=== PATIENT | male | born 1935 | race Caucasian/White ===

== ENCOUNTER 2020-05-29 16:20 | Outpatient (CLI) | payer MEDICARE, SELFPAY ==
[2020-05-29 17:08] LABS: Basophils # 0.1 10^3/uL (0.0-0.1); Basophils % 1.3 %; Eosinophils # 0.4 10^3/uL (0.0-0.8); Eosinophils % 7.4 %; Hemoglobin 15.6 g/dL (11.7-16.6); Lymphocytes # 1.4 10^3/uL (0.8-4.8); Lymphocytes % 27.2 %; Mean Corpuscular HGB Conc 33.9 g/dL (30.0-36.0); Mean Corpuscular Volume 91.3 fL (80-94); Mean Platelet Volume 11.5 fL (7.4-10.4); Monocytes # 0.5 10^3/uL (0.2-0.9); Monocytes % 8.6 %; Neutrophils # 2.91 10^3/uL (1.8-7.7); Neutrophils % 55.3 %; Nucleated Red Blood Cells % 0 %; Platelet Count 180 10^3/cmm (130-400); Red Blood Count 5.04 10^6/uL (4.1-5.3); Red Cell Distribution Width 13.4 % (12.1-15.1); White Blood Count 5.3 10^3/uL (4.0-10.0)
== END 2020-05-29 16:21 | disposition home or self-care (01) ==
LOC: LAB 16:26
PROVIDERS: PCP Family Medicine; Visit Provider Internal Medicine Cardiovascular Disease
DX: Z45.010 Encounter for checking and testing of cardiac pacemaker pulse generator [battery] (principal)
CPT/HCPCS: 36415; 85025; 87635

== ENCOUNTER 2020-06-01 06:13 | Day surgery (SDC) | payer MEDICARE, SELFPAY ==
[2020-06-01 06:30] VITALS: BP 150/104; PULSE 95; RESP 18; TEMP 36.9; O2SAT 98
--- NOTE | 2020-06-01 07:13 | W.PM.OPSUD ---
Surgery/Procedure H&P Update DATE OF PROCEDURE: June 01, 2020 DATE H&P PERFORMED: 05/28/20 H&P UPDATE INFORMATION: I have reviewed H&P completed within last 30 days, I have examined patient prior to procedure and No changes to prior documentation PREOP DIAGNOSIS: Pacemaker ASTRID PRIMARY INDICATION FOR PROCEDURE: As mentioned above PLANNED PROCEDURE: Operation Date: 06/01/20 07:00 Proposed Procedures p Pacemaker Generator Change(Not Applicable) - Evy Gates MD PATIENT REASSESSED PRIOR TO SEDATION, WITH NO CHANGE NOTED: Yes PHYSICAL EXAM: alert, oriented x 3, clear to auscultation bilaterally and regular rate & rhythm OTHER PERTINENT EXAM FINDINGS: Heart sounds are normal. Lung is clear. AIRWAY EVAL/ANESTHESIA PLAN: normal airway, ASA II, Risks, benefits & alternatives of sedation and/or procedure discussed and Patient agrees to continue as planned
--- NOTE | 2020-06-01 08:30 | P.OP_ITS ---
Operative Report Date of procedure: June 01, 2020 Pre-op Diagnosis: Pacemaker ASTRID Procedure: PROCEDURE: PACEMAKER REVISION PREOPERATIVE DIAGNOSIS: Pacemaker elective replacement indication. POSTOPERATIVE DIAGNOSIS: Pacemaker elective replacement indication. ESTIMATED BLOOD LOSS: None COMPLICATIONS: None. 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 The patient was found to have elective replacement indication, during routine office followup evaluation. For further management of patient's condition for the symptomatic bradycardia, the patient required a pacemaker revision. Patient required a dual-chamber pacemaker for symptom relief and the need for AV synchrony The procedure was explained to the patient and his family in detail with the risks and benefits. The risks of bleeding, hematoma, vascular injury, infection and other concomitant complications were explained in detail, which the patient understood well and consented to proceed. PROCEDURES PERFORMED: 1. Explantation of the old pacemaker generator. 2. Implantation of the new generator. The patient brought to the Cardiac Bowl Attendant. The left side of the neck and the subclavian area were cleaned and draped in a sterile fashion. 1% Xylocaine was used for local anesthetic agent. A 2 inch long incision was made just below the previous pacemaker scar. By sharp and blunt dissection, the pacemaker pocket was accessed. The old generator was delivered from the pocket. The generator was detached from the lead. The new Medtronic generator was attached to the lead. The pacemaker pocket was copiously irrigated with vancomycin solution. Complete hemostasis was achieved. The lead was positioned behind the generator and the generator was attached to the pectoralis fascia by suturing with 0 Surgilon. Sponge counts were confirmed. The pacemaker pocket was closed in layers. Skin was approximated using 4-0 Vicryl. EXPLANTED DEVICE: Pacemaker Generator: Brand: [place]. Model number: [id number]. Serial number: [id number]. Date of implant: 12/10/2009 Make: [employer] Theo IMPLANTED DEVICES: Ventricular Lead: Date of implantation: 05/28/1994 Model number: [id number]/58 Serial number: [id number] Make: [employer] Theo. Atrial lead Date of implantation: 05/18/1994 Model number: [id number]/52 Serial number: [id number] Make: [employer] Theo Implanted Generator: Date of implantation : 06/01/2020 Brand:mGaadi. Model number: [id number] Serial number: [id number] Make: [employer] Theo Stimulation Threshold: The ventricular sensing was greater than 12 millivolts. Ventricular lead impedance was 700 ohms and the pacing threshold was 1.25 volts at 0.4 milliseconds. The atrial sensing was 1.1 millivolts. Atrial lead impedance was 450 ohms and the pacing threshold was 1.0 volts at 0.4 milliseconds. The pacemaker was set for DDDR mode with an upper rate of 130 and a lower rate of 60. Paced AV delay of 200 with a sensed AV delay of 180 +VIP 150 A pressure dressing was applied over the pacemaker site. The patient was transferred back to medical floor in stable condition. Sponge counts were correct.
[2020-06-01 12:29] VITALS: BP 137/82; PULSE 72; RESP 16; TEMP 36.5; O2SAT 99
[2020-06-01 16:22] VITALS: BP 127/74; PULSE 62; RESP 16; TEMP 36.6; O2SAT 96
[2020-06-01 19:22] VITALS: BP 135/71; PULSE 63; RESP 20; TEMP 37.1; O2SAT 95
[2020-06-01 23:21] VITALS: BP 139/80; PULSE 79; RESP 16; TEMP 37; O2SAT 97
[2020-06-02 03:56] VITALS: BP 132/68; PULSE 66; RESP 16; TEMP 37.1; O2SAT 95
--- NOTE | 2020-06-02 06:00 | ECG_ITS ---
Test Date: 2020-06-02 Pat Name: Brendan Thacker Department: Room: 111 Gender: Male Interventional Neuroradiologist: : 1935 Requested By: Evy Gates Order Number: [id number] Carloz MD: Evy Gates M.D. Measurements Intervals [place] Rate: 103 P: 267 MS: 212 QRS: -76 QRSD: 154 T: 77 QT: 393 QTc: 516 Interpretive Statements ELECTRONIC VENTRICULAR PACEMAKER ABNORMAL RHYTHM ECG No previous ECG available for comparison Electronically Signed On 06-02-2020 18:35:40 CDT by Evy Gates M.D. [id number]
[2020-06-02 07:25] VITALS: BP 139/81; PULSE 68; RESP 15; TEMP 36.6; O2SAT 97
[2020-06-02] MEDS: hydroCHLOROthiazide 25 mg Tablet PO (09:01)
[2020-06-02] MEDS: lisinopril 20 mg Tablet PO (09:01)
--- NOTE | 2020-06-02 10:20 | PC.NURSE ---
Pacemaker interrogation performed. Report called, pacemaker passed interrogation.
--- NOTE | 2020-06-02 11:02 | PM.PN ---
Subjective Subjective: Interval history: Patient was admitted to hospital following his pacemaker insertion for IV antibiotics. He was given IV vancomycin because of the allergy to Keflex. He has not had a reaction to the medication. He did have a hematoma bleeding from the pacemaker insertion site. His vitals remained stable. No fever, chills or cough. Since the patient is remained stable with no new symptoms, he is being discharged home today. Medications: Reviewed: Yes Medication Review Details: Current Medications Acetaminophen (Tylenol) 650 mg PO Q6H PRN PRN Reason: MILD PAIN Hydrochlorothiazide (Hctz) 25 mg PO DAILY [facility] Last Admin: 06/02/20 09:01 Dose: 25 mg Documented by: Sodium Chloride (Sodium Chloride 0.9%) 1,000 mls @ 75 mls/hr IV .[id number] [facility] Last Admin: 06/01/20 09:05 Dose: Not Given Documented by: Lisinopril (Prinivil) 20 mg PO DAILY [facility] Last Admin: 06/02/20 09:01 Dose: 20 mg Documented by: Non-Formulary Medication (Naproxen Sodium [Aleve]) 220 mg PO BID PRN PRN Reason: Pain Non-Formulary Medication (Pyridoxine (Vitamin B6)) 250 mg PO DAILY [facility] Last Admin: 06/02/20 09:02 Dose: Not Given Documented by: Vitals/I&O/Wt Last Vital Signs Temp 97.9 F 06/02/20 07:25 Pulse 68 06/02/20 07:25 Resp 15 06/02/20 07:25 BP 139/81 06/02/20 07:25 Pulse Ox 97 06/02/20 07:25 06/01/20 06/02/20 06/02/20 22:59 06:59 14:59 Intake Total 240 / 480 240 / 240 Output Total 460 / 460 Balance - 240 / 240 Weight last 48 hrs Weight 157 lb Physical Exam Narrative: EXAM NARRATIVE: GENERAL: The patient is alert and oriented times three. Not in any acute distress. HEENT: No significant pallor, icterus or lymphadenopathy.Oral cavity: There are no mucous membrane lesions. NECK: Trachea appears to be central. No masses noted. No JVD or thyromegaly appreciated. RESPIRATORY: Chest is symmetrical. No intercostals muscle retraction or any accessory muscle activation. There is no chest wall tenderness. Breath sounds are heard bilaterally. No rales or rhonchi heard. No evidence of any consolidation. Pacemaker site has no hematoma or bleeding. BREASTS: Deferred. HEART: The heart sounds are normal. No S3 or S4. No significant murmurs. No pericardial rub ABDOMEN: No vessel pulsations or distention. No tenderness. No organomegaly appreciated. Bowel sounds are normally heard. : Deferred. RECTAL: Deferred. LYMPHATIC: No lymphadenopathy noted in the neck or groin. EXTREMITIES: No edema or cyanosis. No clubbing. Peripheral pulses are palpated in fairly good volume and amplitude MUSCULOSKELETAL: No acute joint deformities or swelling SKIN: There are no significant rashes or ecchymosis NEUROPSYCHIATRIC: The patient is alert and oriented x3. Appears to be in a good mood. No tremors or rigidity noted. A&P Assessment and plan (1) Pacemaker at end of battery life: Patient had a pacemaker revision yesterday. He is doing okay with no specific symptoms. Pacemaker function appears to be appropriate. Status: Acute (2) Hypertension: Patient is currently normotensive. May continue on the current medications. Status: Acute Qualifiers: Hypertension type: essential hypertension Qualified Code(s): I10 - Essential (primary) hypertension (3) Hyperlipidemia: We will continue the current medications. 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 We will continue on the current medication. Status: Acute Attestations Medical Necessity Statement*: Patient is being discharged home today. Please see the discharge instructions. I will see him in the office as scheduled. Appointment at the heart care services next for a wound check and pacemaker check. 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
[2020-06-02 11:36] VITALS: BP 137/89; RESP 18
[2020-06-02 12:35] VITALS: BP 137/89; PULSE 82; RESP 18; TEMP 36.6; O2SAT 93
--- NOTE | 2020-06-02 12:54 | PC.NURSE ---
Discharge instructions given per the physician's orders. Patient verbalized understanding of the information and activity restrictions and did not have any further questions. IV has been removed. Patient dressed self. Patient daughter contacted for transportation home. Nurse to continue to monitor.
== END 2020-06-02 13:10 | disposition home or self-care (01) ==
LOC: CCL 06:18 → CSU 08:39
PROVIDERS: PCP Family Medicine; Visit Provider Internal Medicine Cardiovascular Disease
DX: Z45.018 Encounter for adjustment and management of other part of cardiac pacemaker (principal); I10 Essential (primary) hypertension; E78.2 Mixed hyperlipidemia; I45.6 Pre-excitation syndrome
CPT/HCPCS: 12345; 33213; 36415; 93005; 97165; C1769; C1785; J2250; J3010; J3370; J7030; J7050

== ENCOUNTER → 2020-07-05 13:58 | Outpatient (BNVA) | payer MEDICARE, SELFPAY | PROVIDERS: PCP Family Medicine; Referring Provider Dermatology; Visit Provider Podiatrist Foot & Ankle Surgery | DX: M19.072 Primary osteoarthritis, left ankle and foot (principal); M79.672 Pain in left foot | CPT/HCPCS: 73630 ==

== ENCOUNTER → 2021-02-14 08:33 | Outpatient (BNVA) | payer MEDICARE, SELFPAY | PROVIDERS: PCP Family Medicine; Visit Provider Internal Medicine Cardiovascular Disease | DX: Z01.818 Encounter for other preprocedural examination (principal); R07.89 Other chest pain; R60.9 Edema, unspecified; E78.2 Mixed hyperlipidemia; Z01.812 Encounter for preprocedural laboratory examination; Z20.822 Contact with and (suspected) exposure to COVID-19; Z45.010 Encounter for checking and testing of cardiac pacemaker pulse generator [battery] | CPT/HCPCS: 80048; 83880; 85025; 85610; 86850; 86900; 87635 ==

== ENCOUNTER → 2021-02-19 09:27 | Outpatient (BNVA) | payer MEDICARE, SELFPAY | PROVIDERS: PCP Family Medicine; Visit Provider Internal Medicine Cardiovascular Disease | DX: R60.9 Edema, unspecified (principal); R07.89 Other chest pain; I10 Essential (primary) hypertension | CPT/HCPCS: 80048; 83880 ==

== ENCOUNTER 2021-02-21 05:57 | Day surgery (SDC) | payer MEDICARE, SELFPAY ==
[2021-02-21] VITALS (7 sets, daily range): BP systolic 127–145; BP diastolic 63–98; PULSE 60–95; RESP 14–17; TEMP 36.3–36.9; O2SAT 95–97; BMI 20.7
[2021-02-21] MEDS: diphenhydrAMINE 50 mg Capsule PO (06:48)
--- NOTE | 2021-02-21 07:00 | XACV_ITS ---
Exam Room: [facility] Ht: 183 cm Wt: 69 kg BSA: 1.87 m2 Gender: Male : 1935 Any Known Allergies: Other Exam Priority: Routine Procedure(s): Procedure Description: Diagnostic procedure Procedure Description: PCI procedure Procedure Description: Left Heart Catheterization Procedure Description: Left ventriculography Procedure Description: Drug Eluting Coronary Stent Procedure Description: PTCA Diagnostic Cath Status: Elective Diagnostic Findings * Coronary angiography shows right dominance. * The left main is a medium caliber vessel with mild diffuse plaques. * The left anterior descending artery is a medium caliber vessel which appears to wrap around the LV apex minimally. The proximal to mid LAD was found to have moderate diffuse calcification. Proximal LAD was found to have around 40% tubular narrowing. Just before the second diagonal branch, the mid left anterior descending artery was found to have a tapering narrowing for 95%. The stenosis involves the ostium of the second diagonal branch. The distal LAD was found to have around 30 to 40% diffuse tubular narrowing in the mid segment. No other significant stenotic lesions were noted. * The left circumflex artery is a medium caliber diffusely ectatic vessel with mild diffuse coronary artery disease. No significant stenotic lesions were noted. * The right coronary artery is a medium caliber dominant vessel. The artery appears to be diffusely ectatic. Mild diffuse coronary calcification and intimal irregularities were noted. No significant stenotic lesions were seen. PCI Status: Urgent PCI Indication: NSTE - ACS Interventional Findings * Distal Left Anterior Descendin% stenosis treated with a AB TREK 2.50X12 RX BALLOON, MARK Eduardo LUCY 3.0X15 NYDIA, and MDRhett ALONZO EUPHORA RX 3.89S87CE BALLOON. 0% residual stenosis, DONNA: 3 flow. * 2nd Diagonal: 90% stenosis treated with a AB MINI TREK 2.00X8 RX BALLOON. 50% residual stenosis, DONNA: 3 flow. Conclusions 1. Mild left ventricular systolic dysfunction. Ejection fraction of 40%. 2. 85-year-old white male with history of hypertension, dyslipidemia, WPW syndrome and permanent pacer implantation, presenting with increasing episodes of chest pain. Cardiac catheterization revealed the following. 3. High-grade tapering narrowing of around 95% in the mid LAD involving the ostium of the second diagonal branch. Diffuse ectasia of the circumflex and right coronary artery. Mild diffuse disease in all the 3 arteries. Moderate diffuse calcification in the proximal to mid left anterior descending artery. Diminished LV ejection fraction of 40%. LVEDP of 16 mmHg. 4. I reviewed and discussed the cardiac catheterization findings with Dr. Nolan. It was thought to be appropriate to consider PCI of the LAD/diagonal lesion. Dr. Nolan concurred with this plan. He took over further management of this patient at this point. 5. Distal Left Anterior Descending was treated with a Balloon, Drug Eluting Stent, and Balloon. 6. 2nd Diagonal was treated with a Balloon. Recommendations * 1-Return to inpatient for close monitoring and routine cath care2-Risk factor modification for secondary prevention3-Statin and aspirin 81 mg life--long, if tolerated4-Patient was pre-loaded with 600 mg of Plavix, continue Plavix 75mg p.o. daily for at least one year. We will assess at the end of one year again to continue if further or not5-Continue optimal medical management * 6-Follow up with Dr. Arcelia Gates * in four weeks and your primary care in 10 days. Interventional RX Recommendation: PCI w/o planned CABG Diagnostic RX Recommendation: PCI w/o planned CABG Ventriculography Ejection Fraction: 40.0 % LV EDP: 16 mmHg Left Ventriculography Findings: * The LV gram was performed the RESENDIZ projection. The LV cavity appears to be upper limit of normal. There was diffuse hypokinesia of the anteroapical region. Overall LV ejection fraction was around 40%. There is no filling defects. No significant mitral valve prolapse or mitral regurgitation. Pressures Phase:Rest AO : 126 / 62 ( 90 ) @ 6:50:00 AM LV : 127 / -5 / 16 @ 6:49:00 AM 130 / -4 / 16 @ 6:49:00 AM 129 / 6 / 20 @ 6:49:00 AM 128 / 6 / 19 @ 6:49:00 AM 127 / 7 / 19 @ 6:50:00 AM Valves Phase:DefaultPhase AV : 0.0 @ 8:47:47 AM AV Mean Gradient: 0.0 @ 8:47:47 AM Clinical Evaluation EBL: 5mL-10mL Procedural Details Procedure Consent Obtained. Admit Source: Out Patient. Pre-Procedure Time Out. Identified patient by full name and date of as verbalized by the patient/guarantor. Does the consent match the physician's order: Yes. Accurate & Complete Informed Consent: Yes. Inpatient/Outpatient History & Physical on Chart: Yes. If H&P is completed, is and addenduem needed: N/A; If yes, is the addendum complete: N/A. Visualize and Verify Site with Patient/Guarantor: N/A. Relevant Radiology Images available: N/A. Pre-op teaching completed and patient verbalized understanding. The risks, benefits, and alternatives of sedation and/or procedure were discussed by physician. The patient agrees to continue. Procedure started. Correct patient, site and procedure confirmed by cath team. PERRLA. 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 Lungs clear x 5 lobes. [facility] Clinical Fraility Score: 4: Vulnerable. Complaint Supervisor Indications: Worsening Angina. Chest Pain Symptom Assessment: Atypical Angina. Cardiovascular Instability: No. IV Site on Arrival: 20 gauge in the left anticubital. Pre Procedural Pulses: bilateral dorsalis pedis was 3+. Pre Procedural Pulses: right posterior tibial was Doppled. Pre Procedural Pulses: left posterior tibial was 1+. Pre Procedural Pulses: bilateral radial was 3+. Oxygen started at 2liters/min via nasal canula. bilateral groins was prepped with chloroprep then draped in the usual sterile fashion. right radial was prepped with chloroprep then draped in the usual sterile fashion. Physician notified. Baseline sample Acquired. HR: 89 BPM. Physician arrived. Physician scrubbed in. Immediate Pre-Procedure Time Out. Correct Patient: Yes; Correct Procedure: Yes; Correct Site: Yes; Correct Patient Position: Yes; Correct Supplies: Yes; Dried Flammable Prep: Yes; Blood Products Available: N/A;. Lidocaine 1% infiltrated to the right radial. Arterial access obtained. A 5 t[place]anian Vasiliy catheter in over wire. Multiple views taken of left coronary artery. Dr. Nolan notified for possible intervention. Catheter redirected to the RCA. Catheter out. A 5 tanzanian JR4 catheter in over wire. Multiple views taken of right coronary artery. Catheter out. A 5 tanzanian Angled Pig catheter in over wire. LV gram performed in RESENDIZ @ 10 mL/second for a total of 30 mL. EDP Sample taken: LV 127/-6,16; HR: 69 BPM; SpO2: 96%. EDP Sample taken: LV 129/6,20; HR: 66 BPM; SpO2: 97%. Pullback taken: LV 127/7,19; AO 126/62(90); Mean: 0mmHg, Peak to Peak: 0mmHg, SEP: 7sec/min; HR: 71 BPM; SpO2: 97%. Catheter out. Dr. Nolan scrubbed in to perform intervention. patient daughter updated by Dr. Gates. 6 tanzanian XB 3.5 guide catheter was inserted over the wire. Runthrough guidewire was advanced through the guide catheter to lesion in the mid LAD. [place]prise guidewire was advanced through the guide catheter to lesion in the 2nd diaganol. cougar wire out. Inflation number : 1 A AB TREK 2.50X12 RX BALLOON was prepped and advanced across the Mid LAD , then inflated to 8 SANCHO for 0:11 seconds. Inflation number: 2 The AB TREK 2.50X12 RX BALLOON was reinflated across the Mid LAD, to 8 SANCHO for 0:10 seconds. Inflation number: 3 The AB TREK 2.50X12 RX BALLOON was reinflated across the Mid LAD, to 12 SANCHO for 0:14 seconds. Inflation number: 4 The AB TREK 2.50X12 RX BALLOON was reinflated across the Mid LAD, to 12 SANCHO for 0:09 seconds. Balloon out. Inflation Number : 5 A MARK Eduardo LUCY 3.0X15 NYDIA -Lot Number# [id number] exp date: 10-20-2022 was prepped and advanced across the Mid LAD. The stent was deployed at 14 SANCHO for 0:31 seconds. Stent balloon out over wire. Results checked. Wire out. Runthrough guidewire was advanced through the guide catheter to lesion in the mid LAD. Inflation number : 1 A AB MINI TREK 2.00X8 RX BALLOON was prepped and advanced across the 2nd Diag , then inflated to 8 SANCHO for 0:14 seconds. Inflation number: 2 The AB MINI TREK 2.00X8 RX BALLOON was reinflated across the 2nd Diag, to 8 SANCHO for 0:10 seconds. Inflation number: 3 The AB MINI TREK 2.00X8 RX BALLOON was reinflated across the 2nd Diag, to 8 SANCHO for 0:11 seconds. Inflation number: 4 The AB MINI TREK 2.00X8 RX BALLOON was reinflated across the 2nd Diag, to 8 SANCHO for 0:09 seconds. Balloon out. Inflation number : 6 A MDT NC EUPHORA RX 3.37R54SX BALLOON was prepped and advanced across the Mid LAD , then inflated to 14 SANCHO for 0:25 seconds. Inflation number: 7 The MDT NC EUPHORA RX 3.04J35GC BALLOON was reinflated across the Mid LAD, to 14 SANCHO for 0:15 seconds. Balloon out. Wire out. Results checked. TR band placed. Hemostasis obtained. Post Procedure: Pulses reassessed and unchanged. PERRLA. 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 No VTE prophylaxis required. A TR Band was successful obtaining hemostatsis at the Right Radial artery insertion site. ACT drawn. Results 255 seconds. Therapeutic limits - pre-heparin administration 90-150 seconds and monitoring heparin during a vascular procedure >250 seconds. Medication's Wasted: Lidocaine 1% = 18 mL. Medication's Wasted: Nitro = 49.8 mg. Medication's Wasted: Heparin = 2000 units. Medication's Wasted: Other = fentanyl 50 mg. Medication's Wasted: Other = versed 1 mg. Total IV fluids: 150 mL. Contrast type used: Omnipaque 300 mgI/mL, 500 mL bottle. Omnipaque 340mL. PCI Indication:new onset of angina. Post-op diagnosis: drug illuting stent to mid LAD, TRY OUT PERSON to D2. Complications: none. Estimated blood loss: 5mL-10mL. Procedure completed. Patient transferred by wheelchair to 1st floor. Vital chart was stopped. Access Site Site: Right Radial artery Sheath Size: 6 Fr Hemostasis Method: TR Band Hemostasis Success: Successful Procedure Medications Start: 7:14 AM Stop: 7:14 AM Medication: Versed Amount: 1 mg Route: I.V. Start: 7:14 AM Stop: 7:14 AM Medication: Fentanyl Amount: 25 mcg Route: I.V. Start: 7:20 AM Stop: 7:20 AM Medication: Versed Amount: 1 mg Route: I.V. Start: 7:28 AM Stop: 7:28 AM Medication: Verapamil Amount: 5 mg Route: I.A. Start: 7:28 AM Stop: 7:28 AM Medication: Nitrogylcerin Amount: 200 mcg Route: I.A. Start: 7:38 AM Stop: 7:38 AM Medication: Heparin Amount: 5000 units Route: I.V. Start: 7:58 AM Stop: 7:58 AM Medication: Fentanyl Amount: 25 mcg Route: I.V. Start: 8:06 AM Stop: 8:06 AM Medication: Versed Amount: 0.5 mg Route: I.V. Start: 8:12 AM Stop: 8:12 AM Medication: Heparin Amount: 4000 units Route: I.V. Start: 8:19 AM Stop: 8:19 AM Medication: Aggrastat 12.5 mg/250 mL Amount: 35 ml Route: I.V. bolus Start: 8:19 AM Stop: 8:19 AM Medication: Aggrastat 12.5 mg/250 mL Amount: 12.6 ml/hr Route: I.V. drip Start: 8:24 AM Stop: 8:24 AM Medication: Versed Amount: 0.5 mg Route: I.V. Start: 8:36 AM Stop: 8:36 AM Medication: Nitrogylcerin Amount: 200 mcg Route: I.A. Start: 8:46 AM Stop: 8:46 AM Medication: Plavix Amount: 600 mg Route: P.O. I, the attending physician, have reviewed and verified all procedure medications. Yes, all medications given per verbal order History/Risk Factors Hypertension: Yes Dyslipidemia: Yes Tobacco Use: Never Report Signatures Interventional Workflow Finalized by Marquez Nolan MD on 03/07/2021 03:05 PM Diagnostic Workflow Finalized by Dr Evy Gates MD [facility] on 02/21/2021 09:12 PM
--- NOTE | 2021-02-21 07:05 | PM.HP ---
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 Patient had a myocardial perfusion imaging 2018 which was unremarkable with no significant perfusion of normalities. Patient has been having chest pain off and on for a long time. Lately, he has been having increasing episodes of chest pains. In view of his ongoing worsening symptoms, in order to further evaluate his coronary status, a cardiac catheterization was recommended. Patient apparently refused to undergo a repeat stress test. He has no fever or chills. No cough. No other specific complaints. He had initial permanent pacer implantation in 1993. This was revised in May 2020. Review of Systems Narrative: CONSTITUTIONAL: No fever or chills. EYES: No blurring of vision or other visual disturbances lately. ENT: No hoarseness of voice, auditory disturbances or sore throat. CARDIOVASCULAR: As mentioned above. RESPIRATORY: No significant cough. GASTROINTESTINAL: No hematemesis or melena. GENITOURINARY: No dysuria or hematuria. INTEGUMENTARY: No skin rashes or history of skin cancer. NEURO: No transient ischemic attacks or amaurosis. PSYCHIATRIC: No history of psychosis or major depression. HEMATOLOGIC: No bleeding disorders or significant anemia. ENDOCRINE: No history of polyuria or polydipsia. MUSCULOSKELETAL: No recent joint pain or swelling. ALLERGY/IMMUNOLOGY: As mentioned above. Medications/Allergies Home Medications Medication Instructions Recorded Confirmed Last Taken Type lisinopril 20 1 tab PO DAILY 10/05/19 02/21/21 02/20/21 08:00 History mg-hydrochlorothiazide 25 mg tablet naproxen sodium 220 mg tablet 220 mg PO BID PRN 10/05/19 02/21/21 02/20/21 22:30 History pyridoxine (vitamin B6) 250 mg 250 mg PO DAILY 10/05/19 02/21/21 02/20/21 22:30 History tablet cetirizine 10 mg tablet 10 mg PO DAILY PRN 11/27/20 02/21/21 02/20/21 08:00 History famotidine 20 mg tablet 20 mg PO BID #4 tab 01/16/21 02/21/21 02/21/21 05:30 Rx prednisone 20 mg tablet 40 mg PO Q8H #6 tab 01/16/21 02/21/21 02/20/21 23:00 Rx furosemide 20 mg tablet 20 mg PO DAILY #90 tab 02/15/21 02/21/21 02/20/21 08:00 Rx potassium chloride 8 mEq 8 meq PO DAILY #90 tab 02/15/21 02/21/21 02/20/21 08:00 Rx tablet,extended release Allergies Allergy/AdvReac Type Severity Reaction Status Date / Time allopurinol Allergy Unknown Unknown Verified 11/27/20 08:25 barium sulfate Allergy Unknown Unknown Verified 11/27/20 08:25 beclomethasone Allergy Unknown Unknown Verified 11/27/20 08:25 [From Vancenase] cephalexin [From Keflex] Allergy Unknown unknown Verified 11/27/20 08:25 gatifloxacin [From Tequin] Allergy Unknown unknown Verified 11/27/20 08:25 quinidine Allergy Unknown unknown Verified 11/27/20 08:25 carvedilol AdvReac Mild tiredness Verified 11/27/20 08:25 / sleepiness dye 40 Allergy Unknown unknown Uncoded 11/27/20 08:25 PFSH Acute PFSH: Medical History Atypical chest pain Chronic low back pain Edema, peripheral Hyperlipidemia Hypertension 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) Surgical History H/O hernia repair H/O vasectomy Hx of cholecystectomy Family History Mother CAD (coronary artery disease) Father Cancer Lung disease Other Hypertension Denies family history of Diabetes Clotting disorder Dementia Chronic kidney disease (CKD) Suicide Anesthesia complication Bleeding disorder Stroke Social History Smoking and tobacco status: never smoked Alcohol intake: never Vitals/I&O/Wt Last Vital Signs Temp 98.4 F 02/21/21 06:14 Pulse 95 02/21/21 06:14 Resp 17 02/21/21 06:14 BP 145/98 02/21/21 06:14 Pulse Ox 95 02/21/21 06:14 Weight last 48 hrs Weight 153 lb Physical Exam Narrative: EXAM NARRATIVE: GENERAL: The patient is alert and oriented times three. Not in any acute distress. HEENT: No significant pallor, icterus or lymphadenopathy.Oral cavity: There are no mucous membrane lesions. NECK: Trachea appears to be central. No masses noted. No JVD or thyromegaly appreciated. RESPIRATORY: Chest is symmetrical. No intercostals muscle retraction or any accessory muscle activation. There is no chest wall tenderness. Breath sounds are heard bilaterally. No rales or rhonchi heard. No evidence of any consolidation. BREASTS: Deferred. HEART: The heart sounds are normal. No S3 or S4. Short systolic murmur the left sternal border. No diastolic murmurs. No pericardial rub ABDOMEN: No vessel pulsations or distention. No tenderness. No organomegaly appreciated. Bowel sounds are normally heard. : Deferred. RECTAL: Deferred. LYMPHATIC: No lymphadenopathy noted in the neck or groin. EXTREMITIES: No edema or cyanosis. No clubbing. Peripheral pulses are palpated in fairly good volume and amplitude MUSCULOSKELETAL: No acute joint deformities or swelling SKIN: There are no significant rashes or ecchymosis NEUROPSYCHIATRIC: The patient is alert and oriented x3. Appears to be in a good mood. No tremors or rigidity noted. Data Other Labs: The latest sodium was 140 with 28 creatinine 1.1. PT/INR were within normal limits. The CBC showed hemoglobin of 15.7 hematocrit of 45.7 platelet count of 444,000. WBC count of 4.6 thousand. A&P Assessment and plan (1) Atypical chest pain: In view of the patient's increasing episodes of chest pain, in order to further evaluate his coronary status, a cardiac catheterization would be appropriate. The risk of bleeding, hematoma, vascular injury, myocardial infarction, CVA, renal failure and other concomitant complications were explained in detail. Patient understood this well and consented to proceed. Status: Acute (2) Pacemaker: The patient has been compliant with the pacemaker follow-up evaluations. The pacemaker function is appropriate. Status: Acute (3) Hypertension: Currently the blood pressure is a stage II. We will try to optimize his antihypertensive medications Status: Acute Qualifiers: Hypertension type: essential hypertension Qualified Code(s): I10 - Essential (primary) hypertension (4) Hyperlipidemia: Status: Acute Qualifiers: Hyperlipidemia type: mixed hyperlipidemia Qualified Code(s): E78.2 - Mixed hyperlipidemia (5) WPW (Fifdn-Qmhumznlz-Hfynf syndrome): Currently the patient has no specific symptoms. We may continue on the current medications. Status: Acute Attestations Medical Necessity Statement*: The patient needs a PCI, may have to stay overnight. Otherwise he should be able to go home today. 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
--- NOTE | 2021-02-21 07:13 | W.PM.OPSUD ---
Surgery/Procedure H&P Update DATE OF PROCEDURE: February 21, 2021 DATE H&P PERFORMED: 02/21/21 H&P UPDATE INFORMATION: I have reviewed H&P completed within last 30 days, I have examined patient prior to procedure and H&P is in [facility] EMR on date indicated PREOP DIAGNOSIS: ASHD PRIMARY INDICATION FOR PROCEDURE: Increasing episodes of chest pain.. High blood pressure, dyslipidemia, permanent pacer implantation /WPW syndrome PLANNED PROCEDURE: Operation Date: 02/21/21 07:00 Proposed Procedures p left Cardiac Catheterization 10120 r07.89(Left) - Evy Gates MD PATIENT REASSESSED PRIOR TO SEDATION, WITH NO CHANGE NOTED: Yes PHYSICAL EXAM: alert, clear to auscultation bilaterally and regular rate & rhythm AIRWAY EVAL/ANESTHESIA PLAN: normal airway, see other exam findings, ASA III, Monitored Anesthesia, Local Anesthesia, Risks, benefits & alternatives of sedation and/or procedure discussed and Patient agrees to continue as planned
--- NOTE | 2021-02-21 09:30 | PC.NURSE ---
Dr. Nolan on unit. Asked to assess patient's TR band and right arm. Reported swelling about and below TR band. Dr. Nolan removed the 2 TR bands while maintaing manual pressure at site. One TR band reapplied with 15 ml air.
--- NOTE | 2021-02-21 15:51 | PC.NURSE ---
Air removed from TR band in increments of 3ml over the space of an hour without oozing. TR band removed. Site cleaned and 2x2 dressing and opsite applied. Bruising noted proximal and distal from puncture site but unchanged from when assessed by Dr. Nolan this morning.
[2021-02-21] MEDS: famotidine 20 mg Tablet PO (18:29)
[2021-02-21] MEDS: pyridoxine 50 mg Tablet 250 MG PO (20:16)
[2021-02-22 00:06] VITALS: BP 118/58; PULSE 60; RESP 12
[2021-02-22 04:17] VITALS: BP 138/70; PULSE 66; RESP 13; TEMP 36.7; O2SAT 96
[2021-02-22 05:11] LABS: Basophils % 0.5 %; Eosinophils # 0.1 10^3/uL (0.0-0.8); Eosinophils % 1.1 %; Hematocrit 40.1 % (42.0-52.0); Hemoglobin 13.8 g/dL (11.7-16.6); Lymphocytes # 1.2 10^3/uL (0.8-4.8); Lymphocytes % 14.6 %; Mean Corpuscular HGB Conc 34.4 g/dL (30.0-36.0); Mean Corpuscular Hemoglobin 31.7 pg (28.0-34.0); Mean Platelet Volume 11.7 fL (7.4-10.4); Monocytes # 0.6 10^3/uL (0.2-0.9); Monocytes % 7.3 %; Neutrophils # 5.97 10^3/uL (1.8-7.7); Nucleated Red Blood Cells % 0 %; Platelet Count 153 10^3/cmm (130-400); Red Blood Count 4.36 10^6/uL (4.1-5.3); Red Cell Distribution Width 12.4 % (12.1-15.1); White Blood Count 7.9 10^3/uL (4.0-10.0)
[2021-02-22 05:30] LABS: Anion Gap 12.4 (5-19); Blood Urea Nitrogen 37 mg/dL (8-23); Calcium 8.8 mg/dL (8.5-10.5); Carbon Dioxide 28 mmol/L (22-29); Chloride 103 mmol/L (98-107); Glucose 139 mg/dL (65-115); Osmolality Calculated 301 mOsm/kg (285-295); Potassium 3.4 mmol/L (3.5-5.1); Sodium 140 mmol/L (136-145)
[2021-02-22 06:00] VITALS: PULSE 61
--- NOTE | 2021-02-22 08:29 | PM.PN ---
Subjective Subjective: Interval history: The patient underwent a left heart catheterization yesterday followed by PCI of the LAD/first diagonal artery lesions. Since the intervention, patient has been doing okay. He had a small hematoma in the radial arterial insertion site which is currently resolved. Denies any chest pain or chest tightness. No unusual shortness of breath. No other specific complaints. Medications: Reviewed: Yes Medication Review Details: Current Medications Acetaminophen (Acetaminophen 325 Mg Tablet) 650 mg PO Q6H PRN PRN Reason: MILD PAIN Hydrocodone Bitart/Acetaminophen (Hydrocodone-Acetaminophen 5-325 Mg Tablet) 1 tab PO Q4H PRN PRN Reason: MODERATE TO SEVERE PAIN Al Hydrox/Mg Hydrox/Simethicone (Ayoe-Zxi-Lkdswtlwi-Tolu 30 Ml Udc) 30 ml PO Q15M PRN PRN Reason: INDIGESTION Atropine Sulfate (Atropine 1 Mg/Ml Sdv 1 Ml) 0.5 mg IVP PRN PRN PRN Reason: Symptomatic bradycardia Cetirizine HCl (Cetirizine 10 Mg Tablet) 10 mg PO DAILY PRN PRN Reason: Allergy Symptoms Famotidine (Famotidine 20 Mg Tablet) 20 mg PO BID COUNT INCLUDES THE [facility] Last Admin: 02/22/21 09:02 Dose: 20 mg Documented by: Fentanyl (Fentanyl 50 Mcg/Ml Inj 2ml) 50 mcg IVP PRN PRN PRN Reason: Prior to sheath removal Furosemide (Furosemide 20 Mg Tablet) 20 mg PO DAILY COUNT INCLUDES THE [facility] Last Admin: 02/22/21 09:02 Dose: 20 mg Documented by: Hydrochlorothiazide (Hydrochlorothiazide 25 Mg Tablet) 25 mg PO DAILY COUNT INCLUDES THE [facility] Last Admin: 02/22/21 09:02 Dose: 25 mg Documented by: Sodium Chloride (Sodium Chloride 0.9%) 1,000 mls @ 100 mls/hr IV .Q10H COUNT INCLUDES THE [facility] Last Admin: 02/22/21 04:47 Dose: Not Given Documented by: Tirofiban/Sodium Chloride (Aggrastat) 12.5 mg in 250 mls @ 12.5 mls/hr IV .Q20H COUNT INCLUDES THE [facility]; Protocol Last Admin: 02/22/21 04:47 Dose: Not Given Documented by: Lisinopril (Lisinopril 20 Mg Tablet) 20 mg PO DAILY COUNT INCLUDES THE [facility] Last Admin: 02/22/21 09:02 Dose: 20 mg Documented by: Magnesium Hydroxide (Magnesium Hydroxide 30 Ml Udc) 30 ml PO DAILY PRN PRN Reason: CONSTIPATION Naloxone HCl (Naloxone 0.4 Mg/Ml Sdv) 0.1 mg IVP Q2M PRN PRN Reason: RESPIRATORY RATE < 8/MIN Nitroglycerin (Nitroglycerin 0.4 Mg Sublingual Tablet) 0.4 mg SUBLINGUAL Q5M PRN PRN Reason: CHEST PAIN Non-Formulary Medication (Potassium Chloride) 8 meq PO DAILY MIKHAIL Last Admin: 02/21/21 11:13 Dose: Not Given Documented by: Pyridoxine HCl (Pyridoxine 50 Mg Tablet) 250 mg PO BEDTIME MIKHAIL Last Admin: 02/21/21 20:16 Dose: 250 mg Documented by: Temazepam (Temazepam 15 Mg Capsule) 15 mg PO BEDTIME PRN PRN Reason: INSOMNIA Vitals/I&O/Wt Last Vital Signs Temp 98.0 F 02/22/21 04:17 Pulse 61 02/22/21 06:00 Resp 13 02/22/21 04:17 BP 138/70 02/22/21 04:17 Pulse Ox 96 02/22/21 04:17 02/21/21 02/22/21 02/22/21 22:59 06:59 14:59 Intake Total 360 / 600 Output Total 275 / 275 Balance 360 / 600 -275 / 325 Weight last 48 hrs Weight 153 lb Physical Exam Narrative: EXAM NARRATIVE: GENERAL: The patient is alert and oriented times three. Not in any acute distress. HEENT: No significant pallor, icterus or lymphadenopathy.Oral cavity: There are no mucous membrane lesions. NECK: Trachea appears to be central. No masses noted. No JVD or thyromegaly appreciated. RESPIRATORY: Chest is symmetrical. No intercostals muscle retraction or any accessory muscle activation. There is no chest wall tenderness. Breath sounds are heard bilaterally. No rales or rhonchi heard. No evidence of any consolidation. BREASTS: Deferred. HEART: The heart sounds are normal. No S3 or S4. Short systolic murmur the left sternal border. No diastolic murmurs. No pericardial rub ABDOMEN: No vessel pulsations or distention. No tenderness. No organomegaly appreciated. Bowel sounds are normally heard. : Deferred. RECTAL: Deferred. LYMPHATIC: No lymphadenopathy noted in the neck or groin. EXTREMITIES: No edema or cyanosis. No clubbing. Ecchymosis around the radial artery insertion site. No hematoma. Good distal pulses. MUSCULOSKELETAL: No acute joint deformities or swelling SKIN: There are no significant rashes or ecchymosis NEUROPSYCHIATRIC: The patient is alert and oriented x3. Appears to be in a good mood. No tremors or rigidity noted. Data : 02/22/21 04:19 02/22/21 04:19 Other Labs: Laboratory Last Values WBC 7.9 10^3/uL (4.0-10.0) 02/22/21 04:19 RBC 4.36 10^6/uL (4.1-5.3) 02/22/21 04:19 Hgb 13.8 g/dL (11.7-16.6) 02/22/21 04:19 Hct 40.1 % (42.0-52.0) L 02/22/21 04:19 MCV 92.0 fL (80-94) 02/22/21 04:19 MCH 31.7 pg (28.0-34.0) 02/22/21 04:19 MCHC 34.4 g/dL (30.0-36.0) 02/22/21 04:19 RDW 12.4 % (12.1-15.1) 02/22/21 04:19 Plt Count 153 10^3/cmm (130-400) 02/22/21 04:19 MPV 11.7 fL (7.4-10.4) H 02/22/21 04:19 Neut % (Auto) 76.0 % 02/22/21 04:19 Lymph % (Auto) 14.6 % 02/22/21 04:19 Edmunds % (Auto) 7.3 % 02/22/21 04:19 Eos % (Auto) 1.1 % 02/22/21 04:19 Baso % (Auto) 0.5 % 02/22/21 04:19 Neut # (Auto) 5.97 10^3/uL (1.8-7.7) 02/22/21 04:19 Lymph # (Auto) 1.2 10^3/uL (0.8-4.8) 02/22/21 04:19 Edmunds # (Auto) 0.6 10^3/uL (0.2-0.9) 02/22/21 04:19 Eos # (Auto) 0.1 10^3/uL (0.0-0.8) 02/22/21 04:19 Baso # (Auto) 0.0 10^3/uL (0.0-0.1) 02/22/21 04:19 Nucleated RBC % (auto) 0 % 02/22/21 04:19 Nucleated RBCs # 0.0 /100WBC 02/22/21 04:19 Sodium 140 mmol/L (136-145) 02/22/21 04:19 Potassium 3.4 mmol/L (3.5-5.1) L 02/22/21 04:19 Chloride 103 mmol/L (98-107) 02/22/21 04:19 Carbon Dioxide 28 mmol/L (22-29) 02/22/21 04:19 Anion Gap 12.4 (5-19) 02/22/21 04:19 BUN 37 mg/dL (8-23) H 02/22/21 04:19 Creatinine 1.0 mg/dL (0.7-1.2) 02/22/21 04:19 GFR Calculation Not Reportable 02/22/21 04:19 Glucose 139 mg/dL (65-115) H 02/22/21 04:19 Calculated Osmolality 301 mOsm/kg (285-295) H 02/22/21 04:19 Calcium 8.8 mg/dL (8.5-10.5) 02/22/21 04:19 A&P Assessment and plan (1) Atherosclerosis of coronary artery of [place] heart without angina pectoris: Patient status post cardiac catheterization, revealing high-grade lesion in the mid LAD involving the ostium of the second diagonal branch. He underwent PCI of the LAD/diagonal lesion. The other arteries were found to have mild diffuse disease. The right coronary artery and circumflex artery were found to have diffuse ectasia. No significant other stenotic lesions. Patient is currently stable. Importance of compliance with diet, medication and exercise were discussed. If he continues to remain stable, may be discharged home today. Status: Acute Qualifiers: Coronary Disease-Associated Artery/Lesion type: [place] artery Qualified Code(s): I25.10 - Atherosclerotic heart disease of [place] coronary artery without angina pectoris (2) Pacemaker: The patient has been compliant with the pacemaker follow-up evaluations. The pacemaker function is appropriate. Status: Acute (3) Hypertension: For better control of the blood pressure as well as for the LV systolic dysfunction, I may start the patient on losartan 50 mg p.o. daily and discontinue the lisinopril/HCTZ. Patient may continue with the Lasix. Status: Acute Qualifiers: Hypertension type: essential hypertension Qualified Code(s): I10 - Essential (primary) hypertension (4) Hyperlipidemia: Patient apparently is not on any statin drugs. I may start him on Lipitor 40 mg p.o. now 1 daily. Will do a lipid profile on the blood in the lab. Status: Acute Qualifiers: Hyperlipidemia type: mixed hyperlipidemia Qualified Code(s): E78.2 - Mixed hyperlipidemia (5) WPW (Kfxyy-Airvsosbp-Ckzzu syndrome): Currently the patient has no specific symptoms. We may continue on the current medications. Status: Acute Additional A&P Information If the patient continues to remain stable, will be discharged home today. 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
[2021-02-22] MEDS: potassium chloride ER 20 mEq Tablet PO (09:01)
[2021-02-22] MEDS: famotidine 20 mg Tablet PO (09:02)
[2021-02-22] MEDS: lisinopril 20 mg Tablet PO (09:02)
[2021-02-22] MEDS: FUROsemide 20 mg Tablet PO (09:02)
[2021-02-22] MEDS: hydroCHLOROthiazide 25 mg Tablet PO (09:02)
[2021-02-22 09:17] VITALS: BP 166/88; PULSE 76; RESP 18; TEMP 36.2; O2SAT 93
--- NOTE | 2021-02-22 09:54 | PC.NURSE ---
Call placed to Dr. Gates regarding new orders. Reported that patient was given lisinopril and HCTZ prior to discontinuation of the medicines. Dr. Gates stated not to give cozaar this morning and asked me to verify that patient has no allergies to statins prior to giving lipitor.
[2021-02-22] MEDS: clopidogrel 75 mg Tablet PO (10:14)
[2021-02-22] MEDS: atorvastatin 40 mg Tablet PO (10:14)
[2021-02-22 10:18] VITALS: BP 166/88; PULSE 76; RESP 18; TEMP 36.2; O2SAT 93
[2021-02-22 10:42] LABS: Chol HDL Ratio 4.77 mg/dL (1.0-5.00); Cholesterol 186 mg/dL (0-200); HDL Cholesterol 39 mg/dL (60-100); LDL Cholesterol Calculated 129 mg/dL (50-129); LDL HDL Ratio 3.31 RATIO (0.00-3.22); Triglycerides 90 mg/dL (0-150)
--- NOTE | 2021-02-22 11:30 | PC.NURSE ---
Patient provided with verbal and written education/ instructions on plavix, lifting restrictions, post procedure cautions and care of puncture site. Patient discharged home with daughter.
== END 2021-02-22 11:30 | disposition home or self-care (01) ==
LOC: CCL 06:02 → CSU 08:48
PROVIDERS: Internal Medicine Cardiovascular Disease; PCP Family Medicine; Visit Provider Internal Medicine Cardiovascular Disease
DX: I25.10 Atherosclerotic heart disease of native coronary artery without angina pectoris (principal); R07.89 Other chest pain; Z95.0 Presence of cardiac pacemaker; I10 Essential (primary) hypertension; E78.2 Mixed hyperlipidemia; I45.6 Pre-excitation syndrome
CPT/HCPCS: 36415; 80048; 80061; 85025; 85347; 92920; 93452; C1725; C1769; C1874; C1887; C1894; C9600; J1644; J2250; J3010; J3246; J3490; J7030; Q0163; Q9967

== ENCOUNTER → 2021-02-28 12:29 | Outpatient (BNVA) | payer MEDICARE, SELFPAY | PROVIDERS: PCP Family Medicine; Visit Provider Nurse Practitioner Family | DX: I25.10 Atherosclerotic heart disease of native coronary artery without angina pectoris (principal); I10 Essential (primary) hypertension; E78.5 Hyperlipidemia, unspecified | CPT/HCPCS: 80048 ==

== ENCOUNTER → 2021-06-25 10:06 | Outpatient (BNVA) | payer MEDICARE, SELFPAY | PROVIDERS: PCP Family Medicine; Visit Provider Physician Assistant | DX: M54.50 Low back pain, unspecified (principal); M43.16 Spondylolisthesis, lumbar region; M51.37 Other intervertebral disc degeneration, lumbosacral region | CPT/HCPCS: 72110 ==

== ENCOUNTER 2021-07-30 02:51 | Emergency (ER) | payer MEDICARE, SELFPAY ==
[2021-07-30 02:59] VITALS: BP 171/75; PULSE 75; RESP 18; TEMP 36.6; O2SAT 100; BMI 22.4
--- NOTE | 2021-07-30 03:11 | ED_ITS ---
HPI - Abdominal Pain General: Chief Complaint: Abdominal Pain Stated Complaint: Pain in back, Nausea Time Seen by Provider: 07/30/21 02:53 Source: patient Mode of arrival: ambulatory Limitations: no limitations History of Present Illness: HPI narrative: 85-year-old male who has a history of chronic back pain he states he has been going to therapy for his back pain is actually improved. States that he woke tonight a couple hours ago with a sharp pain in his left flank. He states it seems to be episodic denies any worsening or improving factors. He states the pain at its worst was a 9 out of 10 denies any abdominal pain but states that seem to be more in his flank and not his back. He states that his pain right now is improved but he will get increased pain at times. States pain is currently 1 out of 10 denies any vomiting diarrhea or difficulty urinating. Associated Symptoms: Denies chills, diarrhea, fever(s), nausea and vomiting Review of Systems Const: Denies: fever(s), chills, body aches or change in appetite Eyes: Denies: blurry vision or eye discomfort ENMT: Denies: throat pain or dental pain Card: Denies: chest pain Resp: Denies: dyspnea GI: Denies: abdominal pain, nausea, vomiting or diarrhea : Reports: flank pain Musc: Reports: back pain Skin/Breast: Denies: rash Neuro: Denies: headache(s) Psych: Denies: depression Paolo/Lymph: Denies: easy bruising All/Imm: Denies: urticaria PFSH ED PFSH: Medical History Atypical chest pain Chronic low back pain Edema, peripheral Hyperlipidemia Hypertension 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) Surgical History H/O hernia repair H/O vasectomy Hx of cholecystectomy Family History Mother CAD (coronary artery disease) Father Cancer Lung disease Other Hypertension Denies family history of Diabetes Clotting disorder Dementia Chronic kidney disease (CKD) Suicide Anesthesia complication Bleeding disorder Stroke Social History Smoking and tobacco status: former smoker Alcohol intake: never Physical Exam Const: COMMON NORMALS: no acute distress, patient oriented x3 and healthy appearing HENMT: COMMON NORMALS: normocephalic and atraumatic HEAD & SCALP: normocephalic and atraumatic Eye: COMMON NORMALS: Equal, round and reactive pupils present and EOMs intact bilaterally PUPIL: Yes Equal, round and reactive pupils present Neck/C-Spine: COMMON NORMALS: full ROM and supple Chest: COMMONS NORMALS: normal inspection of the chest and normal palpation of entire chest wall Resp: COMMON NORMALS: normal respiratory effort, No retractions, No use of accessory muscles and clear to auscultation bilaterally AUSCULTATION: clear to auscultation bilaterally Cardio: COMMON NORMALS: regular rate, regular rhythm and No murmurs present (Cardio) RATE: regular rate RHYTHM: regular rhythm GI: COMMON NORMALS: Normal to inspection, nondistended, normoactive bowel sounds present, Soft to palpation, non-tender and no masses PALPATION: Yes Soft to palpation Extremity: COMMON NORMALS: normal to inspection and full ROM Neuro: COMMON NORMALS: patient oriented x3, moves all extremities and no focal motor deficits Psych: COMMON NORMALS: mental status grossly normal, Normal thought process present and cooperative THOUGHT PROCESS: Normal thought process present Skin: COMMON NORMALS: no rashes or lesions noted and no wounds GENERAL SKIN EXAM: no rashes or lesions noted Course Vital Signs: Vital signs: Vital Signs Temperature 97.9 F 07/30/21 02:59 Pulse Rate 75 07/30/21 02:59 Respiratory Rate 20 H 07/30/21 03:20 Blood Pressure 171/75 07/30/21 02:59 Pulse Oximetry 100 07/30/21 03:20 MDM - Abdominal Pain MDM Narrative: Medical decision making narrative: Patient presents here with flank pain CT showing kidney stone is 5 mm patient's pain under control he will likely be able to pass at home. We will send him home with a strainer pain meds and have him follow-up with Dr. Mccloud he is return if worsening he understands agrees to plan. Lab Data: Labs: Lab Results 07/30/21 07/30/21 07/30/21 03:14 03:14 04:10 WBC 6.2 10^3/uL 10^3/ uL (4.0-10.0) RBC 4.56 10^6/uL 10^6 /uL (4.1-5.3) Hgb 14.4 g/dL g/dL (11.7-16.6) Hct 41.4 % L % (42.0-52.0) MCV 90.8 fl fl (80-94) MCH 31.6 pg pg (28.0-34.0) MCHC 34.8 g/dL g/dL (30.0-36.0) RDW 12.9 % % (12.1-15.1) Plt Count 179 10^3/cmm 10^3 /cmm (130-400) MPV 10.9 fL H fL (7.4-10.4) Neut % (Auto) 67.6 % % Lymph % (Auto) 21.1 % % [place] % (Auto) 7.1 % % Eos % (Auto) 2.8 % % Baso % (Auto) 1.1 % % Neut # (Auto) 4.17 10^3/uL 10^3 /uL (1.8-7.7) Lymph # (Auto) 1.3 10^3/uL 10^3/ uL (0.8-4.8) [place] # (Auto) 0.4 10^3/uL 10^3/ uL (0.2-0.9) Eos # (Auto) 0.2 10^3/uL 10^3/ uL (0.0-0.8) Baso # (Auto) 0.1 10^3/uL 10^3/ uL (0.0-0.1) Nucleated RBC % (a uto) 0 % % Nucleated RBCs # 0.0 /100WBC /100W BC Sodium 141 mmol/L mmol/L (136-145) Potassium 3.8 mmol/L mmol/L (3.5-5.1) Chloride 101 mmol/L mmol/L (98-107) Carbon Dioxide 23 mmol/L mmol/L (22-29) Anion Gap 20.8 H (5-19) BUN 20 mg/dL mg/dL (8-23) Creatinine 1.1 mg/dL mg/dL (0.7-1.2) GFR Calculation Not Reportable Glucose 175 mg/dL H mg/dL (65-115) Calculated Osmolal ity 299 mOsm/kg H mOs m/kg (285-295) Calcium 9.0 mg/dL mg/dL (8.5-10.5) Total Bilirubin 0.7 mg/dL mg/dL (0.15-1.2) AST 50 U/L H U/L (0-40) ALT 49 U/L H U/L (0-41) Alkaline Phosphata se 68 IU/L IU/L (40-130) Total Protein 6.6 g/dL g/dL (6.6-8.7) Albumin 4.2 g/dL g/dL (3.5-5.2) Globulin 2.4 g/dL g/dL (1.3-4.6) Lipase 44 U/L U/L (13-60) Urine Color Yellow (Yellow) Urine Appearance Clear (CLEAR) Urine pH 5 (5-7) Ur Specific Gravit y 1.025 (1.005-1.030) Urine Protein Trace (Negative) Urine Glucose (UA) Norm (Normal) Urine Ketones Negative (Negative) Urine Blood Neg (Negative) Urine Nitrate Negative (Negative) Urine Bilirubin 1+ H (Negative) Urine Urobilinogen Neg mg/dL mg/dL (Negative) Ur Leukocyte Annie ase Negative (Negative) Urine RBC Rare /hpf /hpf (0-2) Urine WBC 0-4 /hpf H /hpf (0-5) Ur Squamous Epith Cells Rare /hpf /hpf (0-5) Amorphous Sediment Not Reportable Urine Bacteria None /hpf /hpf (NONE) Urine Mucus 3+ /hpf /hpf Imaging Data ^: CT Abd/Pel: Attestation: I personally reviewed and interpreted this imaging study as follows: Radiologist's impression: [address] [address] [address] Scan Report Signed Patient: Brendan Thacker Unit #: [id number] : 1935 Age/Sex: 85 / M ADM Date: 07/30/21 Loc: ER Room/Bed: Attending Dr: Ordering Provider/Ordering MD: Phu Mueller MD Date of Service: 07/30/21 Procedure(s): CT abdomen pelvis w con* [id number] Accession Number(s): [id number] Report Number: [id number] PROCEDURE INFORMATION: Exam: CT Abdomen And Pelvis With Contrast Exam date and time: 07/30/2021 3:20 AM Age: 85 years old Clinical indication: Abdominal pain; Prior surgery; Additional info: L flank pain TECHNIQUE: Imaging protocol: Computed tomography of the abdomen and pelvis with contrast. Radiation optimization: All CT scans at this facility use at least one of these dose optimization techniques: automated exposure control; mA and/or kV adjustment per patient size (includes targeted exams where dose is matched to clinical indication); or iterative reconstruction. Contrast material: VISI; Contrast volume: 95 ml; Contrast route: INTRAVENOUS (IV); COMPARISON: CR XR hip RT 2-3V wo/w pel* [id number] 07/01/2021 3:17 PM RADIATION DOSE METRICS: Total DLP (mGy-cm): 966.69 FINDINGS: Heart: Mildly enlarged heart. Pacemaker leads noted. Diaphragm: A small hiatal hernia is present. Liver: Normal. No mass. Gallbladder and bile ducts: There is mild intra and extrahepatic biliary ductal dilatation, likely secondary to post cholecystectomy status. Pancreas: Normal. No ductal dilation. Spleen: Normal. No splenomegaly. Adrenal glands: Normal. No mass. Kidneys and ureters: There is a 0.5 cm obstructing stone in the left UPJ, resulting in mild hydronephrosis and stranding of the perirenal fat. There is nonobstructing stones in the right lower kidney, the largest measuring 0.4 cm. Stomach and bowel: There is diverticulosis without evidence of diverticulitis. Appendix: No evidence of appendicitis. Intraperitoneal space: Unremarkable. No free air. No significant fluid collection. Vasculature: Mild diffuse atherosclerotic disease is present. Lymph nodes: Unremarkable. No enlarged lymph nodes. Urinary bladder: Unremarkable as visualized. Reproductive: Unremarkable as visualized. Bones/joints: Mild levocurvature of the lumbar spine is present. Multilevel degenerative changes of the spine and grade 1 anterolisthesis of L4 is seen. Soft tissues: Unremarkable. CT/CT abdomen pelvis w con* [id number] IMPRESSION: Left UPJ obstructing stone, resulting in mild hydronephrosis. Dictated By: Ashwin Rodriguez Signed By: Ashwin Rodriguez Signed Date/Time: 07/30/21 0511 DD/ 0320 EKG Data ^: EKG 1: Attestation: I personally reviewed and interpreted this EKG as follows: EKG interpretation date: 07/30/21 EKG interpretation time: 03:05 Interpretation: paced hr [address] or t wave abnormalities qrs 164 qtc 480 Discharge Plan Discharge Patient Disposition: Home Clinical Impression: Kidney stone Condition: Stable Prescriptions: New hydrocodone-acetaminophen 5-325 mg tablet 1 tab PO Q6H PRN (Reason: pain) Qty: 14 RF: 0 Flomax 0.4 mg capsule 0.4 mg PO DAILY Qty: 4 RF: 0 No Action cetirizine [Zyrtec] 10 mg tablet 10 mg PO DAILY PRN (Reason: Allergy Symptoms) RF: 0 metformin 500 mg tablet extended release 24 hr 500 mg PO DAILY RF: 0 lisinopril 40 mg tablet 40 mg PO DAILY 90 Days Qty: 90 RF: 3 naproxen sodium [Aleve] 220 mg tablet 220 mg PO BID PRN (Reason: Pain) RF: 0 pyridoxine (vitamin B6) 250 mg tablet 250 mg PO DAILY RF: 0 potassium chloride 8 mEq tablet extended release 8 meq PO DAILY Qty: 90 RF: 2 furosemide 20 mg tablet 20 mg PO DAILY Qty: 90 RF: 2 atorvastatin 40 mg tablet 40 mg PO DAILY Qty: 90 RF: 3 Plavix 75 mg tablet 75 mg PO DAILY Qty: 90 RF: 3 Discharge Orders: Discharge ED (Routine); Ordered 07/30/21 Ordered By: Phu Mueller Referrals: Edmar Mccloud MD [Physician] - 1-3 days Wayne Ruelas MD [Primary Care Provider] - Discharge Diet: Advance as tolerated Discharge Activity: Resume usual activity Patient Instructions: Kidney Stones (ED), Opioid Safety Coding Level of Care Code ED 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
[2021-07-30 03:18] LABS: Basophils # 0.1 10^3/uL (0.0-0.1); Basophils % 1.1 %; Eosinophils # 0.2 10^3/uL (0.0-0.8); Eosinophils % 2.8 %; Hematocrit 41.4 % (42.0-52.0); Hemoglobin 14.4 g/dL (11.7-16.6); Lymphocytes # 1.3 10^3/uL (0.8-4.8); Lymphocytes % 21.1 %; Mean Corpuscular HGB Conc 34.8 g/dL (30.0-36.0); Mean Corpuscular Hemoglobin 31.6 pg (28.0-34.0); Mean Corpuscular Volume 90.8 fl (80-94); Mean Platelet Volume 10.9 fL (7.4-10.4); Monocytes # 0.4 10^3/uL (0.2-0.9); Monocytes % 7.1 %; Neutrophils # 4.17 10^3/uL (1.8-7.7); Neutrophils % 67.6 %; Nucleated Red Blood Cells % 0 %; Platelet Count 179 10^3/cmm (130-400); Red Blood Count 4.56 10^6/uL (4.1-5.3); Red Cell Distribution Width 12.9 % (12.1-15.1); White Blood Count 6.2 10^3/uL (4.0-10.0)
[2021-07-30 03:20] VITALS: RESP 20; O2SAT 100
[2021-07-30] MEDS: morphine 4 mg/mL SDV 1 mL IVP (03:20)
[2021-07-30] MEDS: ondansetron 2 mg/ML SDV 2 mL 4 MG IVP (03:20)
--- NOTE | 2021-07-30 03:20 | CTR_ITS ---
PROCEDURE INFORMATION: Exam: CT Abdomen And Pelvis With Contrast Exam date and time: 07/30/2021 3:20 AM Age: 85 years old Clinical indication: Abdominal pain; Prior surgery; Additional info: L flank pain TECHNIQUE: Imaging protocol: Computed tomography of the abdomen and pelvis with contrast. Radiation optimization: All CT scans at this facility use at least one of these dose optimization techniques: automated exposure control; mA and/or kV adjustment per patient size (includes targeted exams where dose is matched to clinical indication); or iterative reconstruction. Contrast material: VISI; Contrast volume: 95 ml; Contrast route: INTRAVENOUS (IV); COMPARISON: CR XR hip RT 2-3V wo/w pel* [id number] 07/01/2021 3:17 PM RADIATION DOSE METRICS: Total DLP (mGy-cm): 966.69 FINDINGS: Heart: Mildly enlarged heart. Pacemaker leads noted. Diaphragm: A small hiatal hernia is present. Liver: Normal. No mass. Gallbladder and bile ducts: There is mild intra and extrahepatic biliary ductal dilatation, likely secondary to post cholecystectomy status. Pancreas: Normal. No ductal dilation. Spleen: Normal. No splenomegaly. Adrenal glands: Normal. No mass. Kidneys and ureters: There is a 0.5 cm obstructing stone in the left UPJ, resulting in mild hydronephrosis and stranding of the perirenal fat. There is nonobstructing stones in the right lower kidney, the largest measuring 0.4 cm. Stomach and bowel: There is diverticulosis without evidence of diverticulitis. Appendix: No evidence of appendicitis. Intraperitoneal space: Unremarkable. No free air. No significant fluid collection. Vasculature: Mild diffuse atherosclerotic disease is present. Lymph nodes: Unremarkable. No enlarged lymph nodes. Urinary bladder: Unremarkable as visualized. Reproductive: Unremarkable as visualized. Bones/joints: Mild levocurvature of the lumbar spine is present. Multilevel degenerative changes of the spine and grade 1 anterolisthesis of L4 is seen. Soft tissues: Unremarkable. CT/CT abdomen pelvis w con* [id number] IMPRESSION: Left UPJ obstructing stone, resulting in mild hydronephrosis.
[2021-07-30 03:39] LABS: Alanine Aminotransferase 49 U/L (0-41); Albumin Level 4.2 g/dL (3.5-5.2); Alkaline Phosphatase 68 IU/L (40-130); Anion Gap 20.8 (5-19); Aspartate Amino Transferase 50 U/L (0-40); Blood Urea Nitrogen 20 mg/dL (8-23); Carbon Dioxide 23 mmol/L (22-29); Chloride 101 mmol/L (98-107); Globulin 2.4 g/dL (1.3-4.6); Glucose 175 mg/dL (65-115); Lipase 44 U/L (13-60); Osmolality Calculated 299 mOsm/kg (285-295); Potassium 3.8 mmol/L (3.5-5.1); Sodium 141 mmol/L (136-145); Total Bilirubin 0.7 mg/dL (0.15-1.2); Total Protein 6.6 g/dL (6.6-8.7)
[2021-07-30] MEDS: iodixanol 320 mg/mL 100mL Btl IV (03:55)
[2021-07-30 04:34] LABS: Bilirubin Urine 1+ (Negative); Blood Urine Neg (Negative); Glucose Urine UA Norm (Normal); Ketones Urine Negative (Negative); Nitrate Urine Negative (Negative); Protein Urine Trace (Negative); Specific Gravity, Urine 1.025 (1.005-1.030); Urine Appearance Clear (CLEAR); Urine Color Yellow (Yellow); pH Urine 5 (5-7)
[2021-07-30 04:35] LABS: Add Urine Microscopic? YES; Leukocyte Esterase Urine Negative (Negative); Urobilinogen Urine Neg (Negative)
[2021-07-30 04:36] LABS: Add Urine Culture? No; Mucus Urine 3+ /hpf; RBC Urine RARE /hpf (0-2); Squamous Epithelial Cell Urine RARE /hpf (0-5); WBC Urine 0-4 /hpf (0-5)
[2021-07-30 05:27] VITALS: BP 138/72; PULSE 83; RESP 18; O2SAT 98
--- NOTE | 2021-07-30 07:10 | ECG_ITS ---
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 Measurements Intervals [place] Rate: 75 P: 61 WY: 198 QRS: -78 QRSD: 164 T: 86 QT: 451 QTc: 507 Interpretive Statements ELECTRONIC VENTRICULAR PACEMAKER ABNORMAL RHYTHM ECG Compared to ECG 06/02/2020 09:28:07 No significant changes Electronically Signed On 07-31-2021 0:20:03 APPLICATION SUPPORT ENGINEER by Evy Gates M.D. [id number]
--- NOTE | 2021-07-30 08:22 | DCPLANNER ---
rehabilitation manager had message to schedule a follow up appointment for patient with Dr. Mccloud. rehabilitation manager sent message to Efra Davidson and Rachel at Dr. Ramirez office using task message. Patients information will be printed and reviewed. Clinic will call patient with appointment information.
--- NOTE | 2021-08-01 07:47 | DCPLANNER ---
Addendum entered by Emily Malin 09/19/21 15:10: Patient had a follow up appointment scheduled with Dr. Mccloud on 09.03.21 - patient did attend appointment. Original Note: Patient has a follow up appointment scheduled for Thursday, September 03, 2020 at 10:[address] Mccloud. Clinic will call patient with appointment information.
== END 2021-07-30 05:36 | disposition home or self-care (01) ==
PROVIDERS: Emergency Provider Emergency Medicine; PCP Family Medicine
DX: N20.0 Calculus of kidney (principal); Z79.84 Long term (current) use of oral hypoglycemic drugs; Z79.02 Long term (current) use of antithrombotics/antiplatelets; E78.5 Hyperlipidemia, unspecified; I10 Essential (primary) hypertension; Z95.0 Presence of cardiac pacemaker; I45.6 Pre-excitation syndrome; Z87.891 Personal history of nicotine dependence
CPT/HCPCS: 74177; 80053; 81001; 83690; 85025; 93005; 96374; 96375; 99283; J2270; J2405; Q9967

== ENCOUNTER 2021-09-03 09:05 | Outpatient (CLI) | payer MEDICARE, SELFPAY ==
--- NOTE | 2021-09-03 09:00 | XR_ITS ---
WS: [email or web address] Exam: XR KUB [id number] Date/Time of Exam: 09/03/2021 9:19 AM Reason For Exam: STONES Comparison to CT scan of the abdomen and pelvis performed 07/30/2021 No bowel obstruction or free air. Small calcifications superimpose the right kidney and may represent renal calculi. A 5 mm calcification is noted along the left transverse process of L3 and may repres ent a previously reported left ureteral stone. Signs of prior cholecystectomy. No sign of organ enlar gement. Degenerative changes of the hips and lower lumbar spine. XR/XR KUB [id number] IMPRESSION: 1. 5 mm left paraspinal calcification.This may represent a stone in the proxima l left ureter. There are also tiny calcifications superimposing the right kidne y which may represent additional renal stones.
== END 2021-09-03 09:06 | disposition home or self-care (01) ==
LOC: RAD 09:07
PROVIDERS: PCP Family Medicine; Visit Provider Urology
DX: N20.1 Calculus of ureter (principal)
CPT/HCPCS: 74018; 82365; 88300

== ENCOUNTER 2021-09-27 09:25 | Outpatient (CLI) | payer MEDICARE, SELFPAY ==
--- NOTE | 2021-09-27 09:27 | XR_ITS ---
WS: [email or web address] XR KUB [id number] REASON FOR EXAM: stones FINDINGS: Multiple small calculi overlying the right kidney unchanged compared to the examination of 09/03/2021. Previous CT scan and KUB demonstrated a calculus at the left ureteral pelvic junction. It now appears that this calculus is within the lower pole of the left kidney. No other abdominal ureteral calculi. No definite distal ureteral calculi or bladder calculi. XR/XR KUB [id number] IMPRESSION: Change in position of left UPJ calculus as above.
== END 2021-09-27 09:26 | disposition home or self-care (01) ==
PROVIDERS: PCP Family Medicine; Visit Provider Nurse Practitioner Family
DX: N20.1 Calculus of ureter (principal)
CPT/HCPCS: 74018; 81003

== ENCOUNTER → 2021-10-25 10:24 | Outpatient (BNVA) | payer MEDICARE, SELFPAY | PROVIDERS: PCP Family Medicine; Visit Provider Internal Medicine Cardiovascular Disease | DX: R00.1 Bradycardia, unspecified (principal); I48.91 Unspecified atrial fibrillation; Z95.0 Presence of cardiac pacemaker ==

== ENCOUNTER 2021-11-05 08:59 | Outpatient (CLI) | payer MEDICARE, SELFPAY ==
--- NOTE | 2021-11-05 09:00 | XR_ITS ---
WS: [email or web address] KUB, AP view, 11/05/2021 Clinical Data: ureteral calculus, left Comparison: KUB 09/27/2021. Findings: No abnormal intraabdominal masses are seen. There is no dilatated small bowel or evidence of obstruct ion. There is a 0.5 cm calcification overlying the lower pole of the left kidney. There are vascular calci fications adjacent to the left kidney. There are surgical clips from a cholecystectomy overlying the right kidney. Fecal material and bowel gas obscure detail over the right kidney. There is cardiac pac emaker wire in the heart. Degenerative change of the lower lumbar spine is seen. XR/XR KUB [id number] Impression: 0.5 cm calcification overlying the lower pole of the left kidney.
== END 2021-11-05 09:00 | disposition home or self-care (01) ==
PROVIDERS: PCP Family Medicine; Visit Provider Urology
DX: N20.1 Calculus of ureter (principal); N20.0 Calculus of kidney
CPT/HCPCS: 74018; 81003

== ENCOUNTER → 2021-12-02 11:19 | Outpatient (BNVA) | payer MEDICARE, SELFPAY | PROVIDERS: PCP Family Medicine; Visit Provider Internal Medicine Cardiovascular Disease | DX: I25.10 Atherosclerotic heart disease of native coronary artery without angina pectoris (principal); R60.9 Edema, unspecified; I11.0 Hypertensive heart disease with heart failure; I50.33 Acute on chronic diastolic (congestive) heart failure; Z95.0 Presence of cardiac pacemaker; R06.02 Shortness of breath | CPT/HCPCS: 36415; 80048; 83880; 99214 ==

== ENCOUNTER 2022-05-13 09:23 | Outpatient (CLI) | payer MEDICARE, SELFPAY ==
--- NOTE | 2022-05-13 09:46 | XR_ITS ---
WS: [email or web address] Exam: XR KUB [id number] Date/Time of Exam: 05/13/2022 10:02 AM Reason For Exam: urolithiasis No bowel obstruction or free air. 4 mm calcification superimposes the right kidney and may represent a renal calculus. Signs of prior cholecystectomy. Vascular calcifications in the abdomen. Degenerativ e changes of the hips and lower lumbar spine. XR/XR KUB [id number] IMPRESSION: 1. Calcifications seen in the region of the right kidney which may represent a renal stone. 2. No acute abdominal process noted.
== END 2022-05-13 09:24 | disposition home or self-care (01) ==
PROVIDERS: PCP Family Medicine; Visit Provider Urology
DX: N20.0 Calculus of kidney (principal)
CPT/HCPCS: 74018; 99213

== ENCOUNTER → 2022-06-02 14:19 | Outpatient (BNVA) | payer MEDICARE, SELFPAY | PROVIDERS: PCP Family Medicine; Visit Provider Nurse Practitioner Family | DX: I25.10 Atherosclerotic heart disease of native coronary artery without angina pectoris (principal); Z95.0 Presence of cardiac pacemaker; I10 Essential (primary) hypertension | CPT/HCPCS: 99214 ==

== ENCOUNTER 2022-11-11 10:02 | Outpatient (CLI) | payer MEDICARE, SELFPAY ==
--- NOTE | 2022-11-11 10:18 | XR_ITS ---
WS: [email or web address] Exam: XR KUB [id number] Date/Time of Exam: 11/11/2022 10:23 AM Reason For Exam: Urolithiasis Comparison 05/13/2022. No bowel obstruction or free air. Calcifications superimpose right kidney and may represent stones. S igns of prior cholecystectomy. Numerous vascular calcifications in the upper left quadrant of the abd omen. Nonspecific pelvic calcifications. Degenerative changes of the lower lumbar spine and sacroilia c joints. XR/XR KUB [id number] IMPRESSION: 1. Calcifications superimpose right kidney and apparently represent known renal stones. 2. No acute abdominal finding.
== END 2022-11-11 10:03 | disposition home or self-care (01) ==
PROVIDERS: PCP Family Medicine; Visit Provider Urology
DX: N20.9 Urinary calculus, unspecified (principal)
CPT/HCPCS: 74018; 81003

== ENCOUNTER 2022-11-24 15:14 | Outpatient (CLI) | payer MEDICARE, SELFPAY ==
--- NOTE | 2022-11-24 15:32 | XR_ITS ---
WS: [email or web address] EXAMINATION: XR KUB [id number] REASON FOR EXAM: STONES COMPARISON: 11/11/2022 ORDER DATE: 11/24/2022 3:57 PM FINDINGS: There is a nonspecific colonic gas pattern with scattered fecal content and gas. Previous cholecystec masoud. There is no sign of significant small bowel dilation. Several 2 to 4 mm sized calcifications ag ain noted superimposing the right kidney possibly renal calculi. Similar unusual pattern of calcifica tions superimposing the left kidney and in the left upper quadrant some of which could represent sple jovan vascular or pancreatic as well as left renal. Calcifications level scoliosis the lumbar spine is present seems to be some prostate calcification. Vascular calcification noted. Prominent degenerative changes in the lumbar spine especially the L4-L5 levels. XR/XR KUB [id number] IMPRESSION: CT imaging will be required to variously identify the numerous calcifications d escribed above if and when clinically indicated.
== END 2022-11-24 15:15 | disposition home or self-care (01) ==
PROVIDERS: PCP Family Medicine; Visit Provider Urology
DX: N20.9 Urinary calculus, unspecified (principal); N20.1 Calculus of ureter; N40.1 Benign prostatic hyperplasia with lower urinary tract symptoms; I45.6 Pre-excitation syndrome
CPT/HCPCS: 74018; 81003; 99213

== ENCOUNTER 2022-12-09 13:48 | Outpatient (CLI) | payer MEDICARE, SELFPAY ==
--- NOTE | 2022-12-09 14:06 | XR_ITS ---
WS: [email or web address] Exam: XR KUB [id number] Date/Time of Exam: 12/09/2022 2:11 PM Reason For Exam: STONES Comparison 11/24/2022. Calcifications superimpose both kidneys. No bowel obstruction or free air. Signs of prior cholecystec mas[place]. Nonspecific bilateral pelvic calcifications. Degenerative changes of the lower lumbar spine. XR/XR KUB [id number] IMPRESSION: 1. No acute abdominal process. 2. Calcifications superimpose both kidneys. These are nonspecific but might be renal stones. No change since prior study.
== END 2022-12-09 13:49 | disposition home or self-care (01) ==
LOC: RAD 13:53
PROVIDERS: PCP Family Medicine; Visit Provider Urology
DX: N20.9 Urinary calculus, unspecified (principal); N20.0 Calculus of kidney
CPT/HCPCS: 74018; 99213

== ENCOUNTER → 2022-12-10 14:09 | Outpatient (BNVA) | payer MEDICARE, SELFPAY | PROVIDERS: PCP Family Medicine; Visit Provider Internal Medicine Cardiovascular Disease | DX: I45.6 Pre-excitation syndrome (principal); E78.2 Mixed hyperlipidemia; I10 Essential (primary) hypertension; Z95.0 Presence of cardiac pacemaker; R60.9 Edema, unspecified | CPT/HCPCS: 99214 ==

== ENCOUNTER 2022-12-18 14:02 | Outpatient (CLI) | payer MEDICARE, SELFPAY ==
--- NOTE | 2022-12-18 12:45 | CTR_ITS ---
PROCEDURE INFORMATION: Exam: CT Abdomen And Pelvis Without Contrast Exam date and time: 12/18/2022 3:04 PM Age: 87 years old Clinical indication: Condition or disease; Kidney or ureter condition; Calculus (stone) in kidney; Prior surgery; Surgery type: Gb, hernia, pacemaker, prostate; Additional info: Stones, CT abd/pelvis without contrast stone protocol 12/18/22 @ 2:00 TECHNIQUE: Imaging protocol: Computed tomography of the abdomen and pelvis without contrast. Radiation optimization: All CT scans at this facility use at least one of these dose optimization techniques: automated exposure control; mA and/or kV adjustment per patient size (includes targeted exams where dose is matched to clinical indication); or iterative reconstruction. REPORTING DATA: Count of CT and Cardiac NM exams in prior 12 months: This patient has received 0 known CTs and 0 known cardiac nuclear medicine studies in the 12 months prior to the current study. COMPARISON: CT abdomen pelvis w con* [id number] 07/30/2021 3:50 AM RADIATION DOSE METRICS: Total DLP (mGy-cm): 283.5 FINDINGS: Lungs: There is a noncalcified pulmonary nodule in the right lower lobe visible on series 3, image 5 measuring 6 mm. There is a noncalcified pulmonary nodule in the left lower lobe visible on series 3, image 3 measuring 6 mm. Liver: The liver has a nodular surface and there is relative hypertrophy of the left and caudate lobe consistent with cirrhosis. There is no focal liver abnormality. Gallbladder and bile ducts: The gallbladder is absent. There is ectasia of the common bile duct and central intrahepatic ducts. Pancreas: There is mild atrophy of the pancreas. Spleen: The spleen is unremarkable. Adrenal glands: The adrenal glands are unremarkable. Kidneys and ureters: There is a 4 x 4 x 5 mm stone in the distal left ureter approximately 2 cm above the ureterovesical junction. There is no hydronephrosis or hydroureter. No intrarenal stones on the left. There are 2 nonobstructive stones in the right kidney measuring up to 4 mm. No hydronephrosis or ureteral dilation on the right. No ureteral stones on the right. Stomach and bowel: The stomach is decompressed, preventing meaningful evaluation of wall thickness. The small bowel is nondilated. There is mild sigmoid colonic diverticulosis without evidence of diverticulitis. Appendix: The appendix is normal. Intraperitoneal space: There is no free air or significant intraperitoneal free fluid. Vasculature: There is mild aortic atherosclerotic disease. Lymph nodes: There is no lymphadenopathy in the retroperitoneum, mesentery, pelvis or inguinal regions. Urinary bladder: The urinary bladder is unremarkable. Reproductive: The prostate and seminal vesicles are unremarkable. Bones/joints: There is severe multilevel degenerative disease in the lumbar spine. There is grade 1 degenerative anterolisthesis of L4 on L5. The pelvis and hips are unremarkable. Soft tissues: The abdominal wall is intact. CT/CT abdomen pelvis wo con [id number] IMPRESSION: 1. 4 x 4 x 5 mm stone in the distal left ureter approximately 2 cm above the ureterovesical junction. No hydronephrosis or ureteral dilation. 2. Two nonobstructive stones in the right kidney measuring up to 4 mm. 3. Morphologic features of the liver suggest cirrhosis. 4. Bilateral lower lobe nodules measuring 6 mm.For patients at low risk (minimal or absent history of smoking and of other known risk factors), recommend CT Chest at 3-6 months, then consider CT Chest at 18-24 months. For patients at high risk (history of smoking or of other known risk factors), recommend CT Chest at 3-6 months, then CT Chest at 18-24 months. (Reference: Mally) 5. Incidental findings above. REFERENCES: Mally Huston, et al. Guidelines for Management of Incidental Pulmonary Nodules Detected on CT Images: From the Fleischner Society 2017. Radiology. 2017;284(1):228-243.
== END 2022-12-18 14:03 | disposition home or self-care (01) ==
PROVIDERS: PCP Family Medicine; Visit Provider Urology
DX: N20.0 Calculus of kidney (principal); N20.1 Calculus of ureter
CPT/HCPCS: 74176; 81003; 99214

== ENCOUNTER 2022-12-24 05:44 | Day surgery (SDC) | payer MEDICARE, SELFPAY ==
[2022-12-22 10:46] VITALS: BMI 20.9
[2022-12-22 11:11] LABS: Basophils # 0.1 10^3/uL (0.0-0.1); Eosinophils # 0.2 10^3/uL (0.0-0.8); Eosinophils % 3.1 %; Hematocrit 38.2 % (42.0-52.0); Hemoglobin 12.8 g/dL (11.7-16.6); Lymphocytes # 1.3 10^3/uL (0.8-4.8); Lymphocytes % 19.6 %; Mean Corpuscular HGB Conc 33.5 g/dL (30.0-36.0); Mean Corpuscular Hemoglobin 31.1 pg (28.0-34.0); Mean Corpuscular Volume 92.7 fl (80-94); Monocytes # 0.5 10^3/uL (0.2-0.9); Monocytes % 7.5 %; Neutrophils # 4.56 10^3/uL (1.8-7.7); Neutrophils % 68.4 %; Nucleated Red Blood Cells % 0 %; Platelet Count 192 10^3/cmm (130-400); Red Blood Count 4.12 10^6/uL (4.1-5.3); Red Cell Distribution Width 12.9 % (12.1-15.1); White Blood Count 6.7 10^3/uL (4.0-10.0)
[2022-12-22 11:18] LABS: Alanine Aminotransferase 32 U/L (0-41); Albumin Level 3.9 g/dL (3.5-5.2); Alkaline Phosphatase 78 U/L (40-130); Aspartate Amino Transferase 37 U/L (0-40); Blood Urea Nitrogen 29 mg/dL (8-23); Calcium 9.1 mg/dL (8.5-10.5); Carbon Dioxide 26 mmol/L (22-29); Chloride 101 mmol/L (98-107); Creatinine Clr Calc Pharmacy 52.7172; Globulin 2.7 g/dL (1.3-4.6); Glucose 155 mg/dL (65-115); Osmolality Calculated 293 mOsm/kg (285-295); Sodium 137 mmol/L (136-145); Total Bilirubin 0.6 mg/dL (0.15-1.2); Total Protein 6.6 g/dL (6.6-8.7)
--- NOTE | 2022-12-22 15:51 | P.ANESASSM_ITS ---
Pre-Anesthetic Assessment Height/Weight: Height 1.78 m Weight 66.224 kg Operation Date: 12/24/22 07:10 Proposed Procedures p CYSTOSCOPY, LEFT RETROGRADE, URETEROSCOPY ,LASER, STENT 27097 93160,N20.1(Not Applicable) - Edmar Mccloud MD s Retrograde Pyelogram(Left) - MD ruthie Mccall Ureteroscopy(Left) - MD ruthie Mccall Laser Lithotripsy(Left) - MD ruthie Mccall Ureteral Stent Placement(Left) - Edmar Mccloud MD Familial anesthetic complications: none Was Beta Keshav taken within 24 hours: N/A Was Clonidine taken within 24 hours: N/A Social No alcohol and No tobacco Exam alert, oriented x 3, clear to auscultation bilaterally and regular rate & rhythm Airway Submandibular: within normal limits Cervical ROM: within normal limits Mallampati: Class II Dentition: chipped CV/HEM Coronary Artery Disease (stent) and Hypertension WPW, pacemaker Metabolic Diabetes Mellitus and Hyperlipidemia Musc/skel Lower Back Pain and Osteoarthritis/DJD Anesthetic Plan ASA status: 3 Anesthesia: General Medications/Allergies Home Medications Medication Instructions Recorded Confirmed Last Taken Type naproxen sodium 220 mg tablet 220 mg PO BID PRN Pain 10/05/19 12/22/22 12/22/22 History (Aleve) pyridoxine (vitamin B6) 250 mg 250 mg PO DAILY 10/05/19 12/18/22 02/20/21 22:30 History tablet hydrocodone 5 mg-acetaminophen 325 1 tab PO Q6H PRN Renal colic 4 09/03/21 12/22/22 Unknown Rx mg tablet days #16 tabs tramadol 50 mg tablet 50 mg PO DAILY 09/03/21 12/22/22 12/22/22 History lisinopril 40 mg tablet 40 mg PO DAILY 90 days #90 tabs 04/24/22 12/22/22 12/22/22 Rx atorvastatin 40 mg tablet 40 mg PO DAILY #90 tabs 07/21/22 12/22/22 12/22/22 Rx clopidogrel 75 mg tablet (Plavix) 75 mg PO DAILY #90 tabs 07/21/22 12/22/2202/06 Rx furosemide 20 mg tablet 20 mg PO DAILY #90 tabs 12/05/22 05/08/23 05/08/23 Rx potassium chloride 8 mEq 8 meq PO DAILY #90 tabs 07/21/22 12/22/22 12/22/22 Rx tablet,extended release losartan 50 mg tablet 50 mg PO DAILY 11/11/22 12/22/22 12/22/22 History tamsulosin 0.4 mg capsule (Flomax) 0.4 mg PO DAILY #30 caps 11/11/22 12/22/22 12/22/22 Rx Allergies Allergy/AdvReac Type Severity Reaction Status Date / Time allopurinol Allergy Unknown Unknown Verified 12/22/22 10:38 barium sulfate Allergy Unknown Unknown Verified 12/22/22 10:38 beclomethasone Allergy Unknown Unknown Verified 12/22/22 10:38 [From Vancenase] cephalexin [From Keflex] Allergy Unknown unknown Verified 12/22/22 10:38 gatifloxacin [From Tequin] Allergy Unknown unknown Verified 12/22/22 10:38 quinidine Allergy Unknown unknown Verified 12/22/22 10:38 [facility] Anesthesia Medical History Atypical chest pain BPH loc w urin obs/LUTS Chronic low back pain Edema, peripheral History of pacemaker Hyperlipidemia Hypertension 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 Renal calculus, left Ureteral calculus, left Urolithiasis WPW (Asntc-Lefevbtib-Dtzal syndrome) Surgical History H/O hernia repair H/O vasectomy History of PTCA Hx of cholecystectomy Family History Mother , IN HER 80'S CAD (coronary artery disease) Father , AT AGE 85 Cancer Lung disease Other Hypertension Social History Smoking and tobacco status: never smoked Alcohol intake: never Substance/Drug Use: never Marital status: / Current occupational status: retired Data Anesthesia 12/22/22 10:55 12/22/22 10:55 Short CBC 12/22/22 Range/Units 10:55 WBC 6.7 (4.0-10.0) 10^3/uL Hgb 12.8 (11.7-16.6) g/dL Hct 38.2 L (42.0-52.0) % MCV 92.7 (80-94) fl Plt Count 192 (130-400) 10^3/cmm Neut % (Auto) 68.4 % Neut # (Auto) 4.56 (1.8-7.7) 10^3/uL BMP 12/22/22 10:55 Sodium 137 Potassium 4.0 Chloride 101 Carbon Dioxide 26 BUN 29 H Creatinine 1.0 Glucose 155 H Calcium 9.1 Liver Function 12/22/22 Range/Units 10:55 Total Bilirubin 0.6 (0.15-1.2) mg/dL AST 37 (0-40) U/L ALT 32 (0-41) U/L Alkaline Phosphatase 78 (40-130) U/L Albumin 3.9 (3.5-5.2) g/dL Cardiac Studies: No Data to Display
[2022-12-24] VITALS (10 sets, daily range): BP systolic 153–167; BP diastolic 77–106; PULSE 60–81; RESP 12–19; TEMP 36.2–36.6; O2SAT 96–100
--- NOTE | 2022-12-24 05:54 | ECG_ITS ---
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 Measurements Intervals [place] Rate: 87 P: 79 MI: 194 QRS: -78 QRSD: 174 T: 84 QT: 429 QTc: 519 Interpretive Statements ELECTRONIC VENTRICULAR PACEMAKER ABNORMAL RHYTHM ECG Compared to ECG 07/30/2021 03:05:08 No significant changes Electronically Signed On 12-24-2022 21:18:51 CDT by Evy Gates M.D. [email or web address]
--- NOTE | 2022-12-24 05:54 | SC_ITS ---
WS: [id number] C-arm fluoroscopy for left ureteral stent placement, 12/24/2022 Clinical Data: Left ureteroscopy Comparison: None. Findings: Dr. Mccloud inserted a left ureteral stent. SC/C-arm FL for Urology Impression: Left ureteral stent.
--- NOTE | 2022-12-24 05:54 | XR_ITS ---
WS: [id number] KUB, AP view, 12/24/2022 Clinical Data: Preop left ureteroscopy, left ureteral stone Comparison: None. Findings: No abnormal intraabdominal masses or renal calcifications are seen. There is no dilatated small bowel or evidence of obstruction. There are vascular calcifications overlying the right kidney. No definite right renal calcifications are seen. The distal left ureteral stone may still be present but there is fecal material and bowel g as which are adjacent to this possible stone. Moderate amount of fecal material in the colon. There a re clips in the right side of the abdomen from a cholecystectomy. A pacemaker wire appears to end in the right ventricle. XR/XR KUB [id number] Impression: Possible distal left ureteral calculus.
[2022-12-24] MEDS: sodium chloride 0.9% 1,000 ML 30 ML IV (06:32)
--- NOTE | 2022-12-24 06:50 | P.HPUD_ITS ---
Surgery/Procedure H&P Update DATE OF PROCEDURE: December 24, 2022 DATE H&P PERFORMED: 12/18/22 H&P UPDATE INFORMATION: I have reviewed H&P completed within last 30 days, I have examined patient prior to procedure, No changes to prior documentation and H&P is in [facility] [place] on date indicated CHANGES TO PREVIOUS DOCUMENTATION: KUB confirms calcification in same location. PREOP DIAGNOSIS: Refractory left distal ureteral stone PLANNED PROCEDURE: Operation Date: 12/24/22 07:00 Proposed Procedures p CYSTOSCOPY, LEFT RETROGRADE, URETEROSCOPY ,LASER, STENT 23830 14759,N20.1(Not Applicable) - Edmar Mccloud MD s Retrograde Pyelogram(Left) - MD ruthie Mccall Ureteroscopy(Left) - Edmar Mccloud MD s Laser Lithotripsy(Left) - MD ruthie Mccall Ureteral Stent Placement(Left) - Edmar Mccloud MD
[2022-12-24] MEDS: levofloxacin-dextrose 5% 250 MG/50 ML PREMIX 50 MG IV (07:05)
[2022-12-24] MEDS: iohexol 300 mg/mL 50 mL Btl (OR ONLY) XX (07:45)
--- NOTE | 2022-12-24 07:54 | P.OP_ITS ---
Operative Report Date of procedure: December 24, 2022 Pre-op diagnosis: Refractory left distal ureteral stone Post-op diagnosis: Refractory left distal ureteral stone Procedure done: 1. Cystoscopy, left retrograde ureteropyelogram 2. LEFT ureteroscopy, stone manipulation/extraction 3. Left ureteral stent placement (6 Bolivian by 28 cm double-pigtail without string) Implants: Left ureteral stent Specimens removed/disposition: Left ureteral stone fragments Pathology: Left ureteral stone fragments Surgeon: Rogers Estimated blood loss: Minimal Urine output: Not measured Complications: None Findings: Anesthesia: General Condition: Stable Disposition: PACU Intraoperative findings: * In expected position. Loose in the ureter without impact * Did not require laser lithotripsy. Removed intact without tension. * Temporary stent left indwelling. Brief History: Brendan is a very pleasant 87-year-old white male followed for a left ureteral stone that originally was located at the left UPJ but migrated [id number] between the left lower pole and the UPJ. Later it was discovered to have migrated to the left distal ureter and has been followed at that position for quite some period of time. It failed to progress and CT scan confirmed the calcification in question was in fact intraureteral. Admitted now for endoscopic treatment of the stone. Procedure: For routine preoperative evaluation examination and obtaining of informed consent he was taken to the operating suite on 12/24/2022 where general anesthesia was administered without difficulty after appropriate timeout was performed, SCDs confirmed to be functioning, preoperative antibiotics administered, beta-jayesh protocol confirmed. Prepped and draped in the usual sterile fashion in dorsolithotomy position pain careful attention to avoiding pressure points. 21 Bolivian cystoscope with 30 degree lens was introduced into the urethral meatus and advanced into the bladder under videoscopy. The bladder was systematically examined. No stones were seen. No other gross pathology. An 8 Bolivian cone-tip catheter was intubated into the left ureteral orifice for left retrograde ureteropyelogram which demonstrated: Normal course and caliber of the ureter distal to the stone. The stone identified as a filling defect consistent with a calcification previously seen on imaging. The ureter proximal to that was minimally dilated. Flexible tip guidewire was then advanced up the left ureter bypassing the stone easily curling in the area of the upper pole calyx. The distal ureter was dilated with a 15 Bolivian 4 cm balloon without waist. The wire was secured to the drapes as a safety wire and a second guidewire used as a working guidewire was then advanced up the left ureter. A 24 cm urete ral access sheath was advanced over the guidewire to just below the level of the stone. The inner sheath and guidewire was removed. A 7 Bolivian offset semirigid ureteroscope was then advanced up the left ureter through the sheath to the stone which was not impacted and appeared to be relatively loose in the ureter. Secured in a try grasping forceps and withdrawn without tension and dropped into the bladder the scope showed no additional stones. There was some periureteral edema but it was not severe but it was decided to leave the temporary stent in place. The cystoscope was then backloaded over the guidewire and a 6 Bolivian by 28 cm double-pigtail stent was advanced over the guidewire through the cystoscope into appropriate position as confirmed via fluoroscopy and cystoscopy. Stent was confirmed to be functioning well. Bladder was drained. Tolerated procedure well without complications and was awakened in the operating room and returned to the room in stable condition. PLANS: 1. Anticipate discharge from outpatient surgery 2. Follow-up next week for cystoscopy and stent removal
--- NOTE | 2022-12-24 08:06 | P.ANESUD_ITS ---
Pre-Anesthetic Update Pre-Anesthetic Assessment: Date of Surgery/Procedure: 12/24/22 Preop Rachel gnosis: Refractory left distal ureteral stone Proposed Procedure: Operation Date: 12/24/22 07:00 Proposed Procedures p CYSTOSCOPY, LEFT RETROGRADE, URETEROSCOPY ,LASER, STENT [id number] 59578,N20.1(Not Applicable) - Edmar Mccloud MD s Retrograde Pyelogram(Left) - MD ruthie Mccall Ureteroscopy(Left) - MD ruthie Mccall Laser Lithotripsy(Left) - MD ruthie Mccall Ureteral Stent Placement(Left) - Edmar Mccloud MD Any changes to Pre-Anesthetic Assessment?: No Last Intake: Intake Last Liquid Date 12/23/22 Last Liquid Time 20:30 Last Solid Date 12/23/22 Last Solid Time 20:30 Labs Last 48hrs: Short CBC 12/22/22 Range/Units 10:55 WBC 6.7 (4.0-10.0) 10^3/ uL Hgb 12.8 (11.7-16.6) g/dL Hct 38.2 L (42.0-52.0) % MCV 92.7 (80-94) fl Plt Count 192 (130-400) 10^3/c mm Neut % (Auto) 68.4 % Neut # (Auto) 4.56 (1.8-7.7) 10^3/u L BMP 12/22/22 10:55 Sodium 137 Potassium 4.0 Chloride 101 Carbon Dioxide 26 BUN 29 H Creatinine 1.0 Glucose 155 H Calcium 9.1 Liver Function 12/22/22 Range/Units 10:55 Total Bilirubin 0.6 (0.15-1.2) mg/dL AST 37 (0-40) U/L ALT 32 (0-41) U/L Alkaline Phosphata se 78 (40-130) U/L Albumin 3.9 (3.5-5.2) g/dL Vitals: Temperature 97.6 F 12/24/22 06:12 Temperature Source Temporal Artery S can 12/24/22 06:12 Pulse Rate 81 12/24/22 06:12 Respiratory Rate 16 12/24/22 06:12 Blood Pressure 153/106 12/24/22 06:12 Blood Pressure Nancy n 121 12/24/22 06:12 Pulse Oximetry 97 12/24/22 06:12 Oxygen Delivery Me thod Room Air 12/24/22 06:12 Exam: Pre-Anes Outpt Exam: alert, oriented x 3, clear to auscultation bilaterally and regular rate & rhythm Cardiac Studies: No Data to Display
--- NOTE | 2022-12-24 08:27 | P.PCN_ITS ---
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
--- NOTE | 2022-12-24 08:27 | PM.PACU ---
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
--- NOTE | 2022-12-24 08:28 | PC.NURSE ---
Pt awake and alert. No c/o.
[2022-12-24] MEDS: ondansetron 2 mg/ML SDV 2 mL 4 MG IVP (08:53)
[2022-12-24] MEDS: hetastarch 30 GM/500 ML PREMIX IV (09:22)
--- NOTE | 2022-12-24 09:53 | SUR.PHASEII ---
0920 pt still c/o nausea and asked dr thrasher(anesthesia) what else i could give patient has already had 2 doses of zofran 4mg IV,order for hespan given and administered
--- NOTE | 2022-12-24 10:18 | SUR.PHASEII ---
1000 pt states that nausea is better but wants to stay a little longer,c/o being dizzy v/s [id number]/77 o2 sat 94 on room air
--- NOTE | 2022-12-24 15:36 | ANE.PACU2 ---
Inpatient post-anesthesia follow up: Airway intact: Yes Vital signs: Temperature 98 F Pulse Rate 61 Respiratory Rate 16 Blood Pressure 164/78 Pulse Oximetry 98 Oxygen Delivery Me thod Room Air Oxygen Flow Rate 97.6 Fraction of Inspir ed Oxygen Hydration adequate: Yes Nausea and vomiting: Yes Pain level: 2 Mental status: Baseline
[2023-01-01 17:49] LABS: Stone Source LEFT URETERAL STONE
== END 2022-12-24 11:15 | disposition home or self-care (01) ==
PROVIDERS: PCP Family Medicine; Visit Provider Urology
PROC: 0TJB8ZZ Inspection of Bladder, Via Natural or Artificial Opening Endoscopic (ICD-10-PCS; CPT 52000; principal; 2022-12-24 07:00)
PROC: (CPT 74420; 2022-12-24 07:00)
PROC: 0TJ98ZZ Inspection of Ureter, Via Natural or Artificial Opening Endoscopic (ICD-10-PCS; CPT 52351; 2022-12-24 07:00)
PROC: (CPT 50605; 2022-12-24 07:00)
DX: N20.1 Calculus of ureter (principal); I25.10 Atherosclerotic heart disease of native coronary artery without angina pectoris; Z95.5 Presence of coronary angioplasty implant and graft; I10 Essential (primary) hypertension; Z95.0 Presence of cardiac pacemaker; E11.9 Type 2 diabetes mellitus without complications; E78.5 Hyperlipidemia, unspecified; Z79.01 Long term (current) use of anticoagulants; I45.6 Pre-excitation syndrome
CPT/HCPCS: 52332; 52352; 74018; 76000; 80053; 82365; 85025; 88300; 93005; J1100; J1956; J2370; J2405; J2704; J2710; J3010; J3490; J7030

== ENCOUNTER 2022-12-28 02:24 | Emergency (ER) | payer MEDICARE, SELFPAY ==
[2022-12-28 02:34] VITALS: BP 147/56; PULSE 72; RESP 16; TEMP 36.4; O2SAT 96; BMI 17.2
--- NOTE | 2022-12-28 03:10 | CTR_ITS ---
PROCEDURE INFORMATION: Exam: CT Abdomen And Pelvis Without Contrast Exam date and time: 12/28/2022 3:18 AM Age: 87 years old Clinical indication: Other: Left flank/back; Prior surgery; Surgery date: 3-7 days post-operative; Surgery type: Left ureteral stent placed on 12/24/2022. Gb. Hernia repair; Patient HX: C/O left sided lower back/flank pain. Ureteral stent placed on 12/24/2022. ; Additional info: Back pain, recent stent procedure TECHNIQUE: Imaging protocol: Computed tomography of the abdomen and pelvis without contrast. Radiation optimization: All CT scans at this facility use at least one of these dose optimization techniques: automated exposure control; mA and/or kV adjustment per patient size (includes targeted exams where dose is matched to clinical indication); or iterative reconstruction. REPORTING DATA: Count of CT and Cardiac NM exams in prior 12 months: This patient has received [address] and 0 known cardiac nuclear medicine studies in the 12 months prior to the current study. COMPARISON: CT abdomen pelvis wo con [id number] 12/18/2022 3:04 PM RADIATION DOSE METRICS: Total DLP (mGy-cm): 362.11 FINDINGS: Tubes, catheters and devices: Interval placement of left double pigtail ureteral stent. Liver: Normal. No mass. Gallbladder and bile ducts: Stable cholecystectomy. Pancreas: Normal. No ductal dilation. Spleen: Normal. No splenomegaly. Adrenal glands: Normal. No mass. Kidneys and ureters: One or more nonobstructing right renal calyceal stones. Stomach and bowel: Unremarkable. No obstruction. No mucosal thickening. Appendix: No evidence of appendicitis. Intraperitoneal space: Unremarkable. No free air. No significant fluid collection. Vasculature: Calcification of the abdominal aorta and/or iliac arteries consistent with atherosclerotic vessel disease. Lymph nodes: Unremarkable. No enlarged lymph nodes. Urinary bladder: Unremarkable as visualized. Reproductive: Unremarkable as visualized. Bones/joints: Grade 1 anterior non-spondylitic spondylolisthesis of L4 on L5 with moderate to severe central spinal stenosis and severe facet hypertrophy and facet degenerative changes. Soft tissues: Unremarkable. CT/CT kidney stone [id number] IMPRESSION: Interval placement of left double pigtail ureteral stent.
--- NOTE | 2022-12-28 03:10 | CTR_ITS ---
PROCEDURE INFORMATION: Exam: CT Lumbar Spine Without Contrast Exam date and time: 12/28/2022 3:18 AM Age: 87 years old Clinical indication: Low back pain; Prior surgery; Surgery date: 3-7 days post-operative; Surgery type: Left ureteral stent on 12/24/2022; Patient HX: C/O left sided lower back/flank pain. Ureteral stent placed on 12/24/2022. TECHNIQUE: Imaging protocol: Computed tomography of the lumbar spine without contrast. Radiation optimization: All CT scans at this facility use at least one of these dose optimization techniques: automated exposure control; mA and/or kV adjustment per patient size (includes targeted exams where dose is matched to clinical indication); or iterative reconstruction. REPORTING DATA: Count of CT and Cardiac NM exams in prior 12 months: This patient has received [address] and 0 known cardiac nuclear medicine studies in the 12 months prior to the current study. COMPARISON: CT abdomen pelvis wo con [id number] 12/18/2022 3:04 PM RADIATION DOSE METRICS: Total DLP (mGy-cm): 362.11 FINDINGS: Tubes, catheters and devices: Left double pigtail ureteral stent. Bones/joints: Grade 1/2 anterior non-spondylitic spondylolisthesis of L4 on L5 with moderate to severe central spinal stenosis and severe bilateral facet hypertrophy and facet degenerative changes. Moderate to severe T12-L1, L4-L5 and L5-S1 degenerative disc disease and spondylosis. Mild levoscoliosis. Kidneys and ureters: One or more nonobstructing right renal calyceal stones. Vasculature: Calcification of the abdominal aorta and/or iliac arteries consistent with atherosclerotic vessel disease. Soft tissues: Unremarkable. CT/CT lumbar spine recon [id number] IMPRESSION: 1. 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 2. Moderate to severe T12-L1, L4-L5 and L5-S1 degenerative disc disease and spondylosis. 3. Left double pigtail ureteral stent.
--- NOTE | 2022-12-28 03:12 | ED_ITS ---
HPI - Back Pain/Injury General: Chief Complaint: Back Pain/Injury Stated Complaint: back pain Time Seen by Provider: 12/28/22 03:00 History of Present Illness: 87-year-old gentleman who 5 days ago now had a ureteral stent procedure for retained stone. He felt good Thursday and . Thursday he began to get some back pain. Thursday it became worse. He has a history of a herniated disc, which usually causes radicular pain down his right leg. This is a different type of pain. He has no radicular pain. He has some pelvic pain as well. No nausea or vomiting. No fever. He had blood in his urine the first day, but not since. It seems to be improved by lying still on his back MD elicited complaint: back pain Pertinent past history: prior back pain, kidney stones and other Onset (ago): day(s) Timing: constant Severity: moderate Radiation: none Exacerbating factors: movement Context: other Associated symptoms: Deny abdominal pain, dysuria, fatigue, fecal incontinence, hematuria, nausea, numbness, tingling/numbness/burning or vomiting Treatments prior to arrival: heat therapy Review of Systems Const: Denies: fatigue Card: Denies: chest pain Resp: Denies: dyspnea GI: Denies: abdominal pain, nausea, vomiting or fecal incontinence : Denies: flank pain, dysuria or hematuria PFS ED PFSH: Medical History Atypical chest pain BPH loc w urin obs/LUTS Chronic low back pain Edema, peripheral History of pacemaker Hyperlipidemia Hypertension 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 Renal calculus, left Ureteral calculus, left Urolithiasis WPW (Rztea-Esumcuudw-Xscuw syndrome) Surgical History H/O hernia repair H/O vasectomy History of PTCA Hx of cholecystectomy Family History Mother , IN HER 80'S CAD (coronary artery disease) Father , AT AGE 85 Cancer Lung disease Other Hypertension Social History Smoking and tobacco status: never smoked Alcohol intake: never Substance/Drug Use: never Marital status: / Current occupational status: retired Physical Exam Const: COMMON NORMALS: no acute distress GENERAL APPEARANCE: cooperative; not ill appearing and not frail appearing HENMT: COMMON NORMALS: normocephalic, atraumatic and Normal external nose present HEAD & SCALP: normocephalic and atraumatic FACE & SINUS: normal facial exam and face symmetric NOSE: Normal external nose present Eye: COMMON NORMALS: Equal, round and reactive pupils present and EOMs intact bilaterally PUPIL: Yes Equal, round and reactive pupils present Neck/C-Spine: GENERAL: Yes trachea midline Chest: CHEST: Yes Symmetrical chest wall rise Resp: COMMON NORMALS: normal respiratory effort, No retractions, No use of accessory muscles and clear to auscultation bilaterally AUSCULTATION: clear to auscultation bilaterally Cardio: COMMON NORMALS: regular rate and regular rhythm RATE: regular rate RHYTHM: regular rhythm GI: COMMON NORMALS: Normal to inspection, nondistended, normoactive bowel sounds present PALPATION: Yes Tenderness to palpation present (GI) (Suprapubic) : COMMON NORMALS: Yes no CVA tenderness BLADDER/KIDNEY EXAM: Yes no CVA tenderness Back/Pelvis: COMMON NORMALS: no CVA tenderness OTHER: Minimal reproducible lumbar tenderness. Negative straight leg raise testing. No deformity. Extremity: COMMON NORMALS: no pedal edema Neuro: OMAR COMA SCALE: document GCS findings Omar coma scale eye o pening: Spontaneous [place] coma scale verbal response: Orientated [place] coma scale motor response: Obey commands [place] coma scale total score: 15 SENSORY EXAM: Yes extremities (intact) Psych: COMMON NORMALS: speech normal SPEECH: Yes normal speech Skin: COMMON NORMALS: no rashes or lesions noted GENERAL SKIN EXAM: no rashes or lesions noted Course Vital Signs: Vital signs: Vital Signs Temperature 97.8 F 12/28/22 06:41 Pulse Rate 72 12/28/22 06:41 Respiratory Rate 16 12/28/22 02:34 Blood Pressure 137/81 12/28/22 06:41 Pulse Oximetry 99 12/28/22 06:41 Oxygen Delivery Me thod Room Air 12/28/22 06:41 MDM - Back Pain/Injury Medical Decision Making 87-year-old gentleman with bilateral lower back pain following ureteral stent placement. Stent is in proper position on CT scan. No significant hydronephrosis. Lumbar CT reveals anterolisthesis of L4 on L5 with moderate to severe central spinal stenosis likely the cause of his pain. Urinalysis is pending. CBC is not remarkable. BMP shows a BUN of 28 and is otherwise not remarkable. CRP is 11. Urinalysis negative for infection pain is improved after a small dose of morphine in the ER. He will be given dexamethasone IV as well for back pain. Labs 12/28/22 03:40 12/28/22 03:40 Radiology Impressions Abdomen/Pelvis CT 12/28/22 03:10 IMPRESSION: Interval placement of left double pigtail ureteral stent. Lumbar Spine CT 12/28/22 03:10 IMPRESSION: 1. 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 2. Moderate to severe T12-L1, L4-L5 and L5-S1 degenerative disc disease and spondylosis. 3. Left double pigtail ureteral stent. Laboratory Results WBC 8.1 10^3/uL (4.0-10.0) 12/28/22 03:40 RBC 4.20 10^6/uL (4.1-5.3) 12/28/22 03:40 Hgb 13.3 g/dL (11.7-16.6) 12/28/22 03:40 Hct 38.7 % (42.0-52.0) L 12/28/22 03:40 MCV 92.1 fl (80-94) 12/28/22 03:40 MCH 31.7 pg (28.0-34.0) 12/28/22 03:40 MCHC 34.4 g/dL (30.0-36.0) 12/28/22 03:40 RDW 12.9 % (12.1-15.1) 12/28/22 03:40 Plt Count 226 10^3/cmm (130-400) 12/28/22 03:40 MPV 10.9 fL (7.4-10.4) H 12/28/22 03:40 Neut % (Auto) 72.5 % 12/28/22 03:40 Lymph % (Auto) 14.8 % 12/28/22 03:40 [place] % (Auto) 8.9 % 12/28/22 03:40 Eos % (Auto) 2.6 % 12/28/22 03:40 Baso % (Auto) 0.6 % 12/28/22 03:40 Neut # (Auto) 5.90 10^3/uL (1.8-7.7) 12/28/22 03:40 Lymph # (Auto) 1.2 10^3/uL (0.8-4.8) 12/28/22 03:40 [place] # (Auto) 0.7 10^3/uL (0.2-0.9) 12/28/22 03:40 Eos # (Auto) 0.2 10^3/uL (0.0-0.8) 12/28/22 03:40 Baso # (Auto) 0.1 10^3/uL (0.0-0.1) 12/28/22 03:40 Nucleated RBC % (auto) 0 % 12/28/22 03:40 Nucleated RBCs # 0.0 /100WBC 12/28/22 03:40 Sodium 138 mmol/L (136-145) 12/28/22 03:40 Potassium 3.8 mmol/L (3.5-5.1) 12/28/22 03:40 Chloride 102 mmol/L (98-107) 12/28/22 03:40 Carbon Dioxide 24 mmol/L (22-29) 12/28/22 03:40 Anion Gap 15.8 (5-19) 12/28/22 03:40 BUN 28 mg/dL (8-23) H 12/28/22 03:40 Creatinine 0.9 mg/dL (0.7-1.2) 12/28/22 03:40 GFR Calculation Not Reportable 12/28/22 03:40 Glucose 146 mg/dL (65-115) H 12/28/22 03:40 Calculated Osmolality 294 mOsm/kg (285-295) 12/28/22 03:40 Calcium 8.9 mg/dL (8.5-10.5) 12/28/22 03:40 Total Bilirubin 1.0 mg/dL (0.15-1.2) 12/28/22 03:40 AST 39 U/L (0-40) 12/28/22 03:40 ALT 35 U/L (0-41) 12/28/22 03:40 Alkaline Phosphatase 86 U/L (40-130) 12/28/22 03:40 C-Reactive Protein 11.1 mg/L (0.0-4.9) H 12/28/22 03:40 Total Protein 6.7 g/dL (6.6-8.7) 12/28/22 03:40 Albumin 3.9 g/dL (3.5-5.2) 12/28/22 03:40 Globulin 2.8 g/dL (1.3-4.6) 12/28/22 03:40 Urine Color Dark yellow (Yellow) 12/28/22 05:00 Urine Appearance Cloudy (CLEAR) A 12/28/22 05:00 Urine pH 5 (5-7) 12/28/22 05:00 Ur Specific [place] 1.015 (1.005-1.030) 12/28/22 05:00 Urine Protein 1+ (Negative) H 12/28/22 05:00 Urine Glucose (UA) Norm (Normal) 12/28/22 05:00 Urine Ketones Negative (Negative) 12/28/22 05:00 Urine Blood 3+ (Negative) H 12/28/22 05:00 Urine Nitrate Negative (Negative) 12/28/22 05:00 Urine Bilirubin 1+ (Negative) H 12/28/22 05:00 Urine Urobilinogen Norm mg/dL (Negative) 12/28/22 05:00 Ur Leukocyte Esterase Negative (Negative) 12/28/22 05:00 Urine RBC Too numerous to cnt /hpf (0-2) H 12/28/22 05:00 Urine WBC 15-25 /hpf (0-5) H 12/28/22 05:00 Ur Squamous Epith Cells None /hpf (0-5) 12/28/22 05:00 Amorphous Sediment Not Reportable 12/28/22 05:00 Urine Bacteria 1+ /hpf (NONE) H 12/28/22 05:00 Discharge Plan Discharge Patient Disposition: Home Clinical Impression: Lumbar spondylosis Condition: Stable Prescriptions: Continued hydrocodone-acetaminophen 5-325 mg tablet 1 tab PO Q6H PRN (Reason: Renal colic) 4 Days Qty: 7 0RF No Action tramadol 50 mg tablet 50 mg PO DAILY naproxen sodium [Aleve] 220 mg tablet 220 mg PO BID PRN (Reason: Pain) pyridoxine (vitamin B6) 250 mg tablet 250 mg PO DAILY losartan 50 mg tablet 50 mg PO DAILY Flomax 0.4 mg capsule 0.4 mg PO DAILY Qty: 30 12RF lisinopril 40 mg tablet 40 mg PO DAILY 90 Days Qty: 90 3RF atorvastatin 40 mg tablet 40 mg PO DAILY Qty: 90 3RF Plavix 75 mg tablet 75 mg PO DAILY Qty: 90 3RF Hold Instructions: Resume on 12/25/22. furosemide 20 mg tablet 20 mg PO DAILY Qty: 90 3RF potassium chloride 8 mEq tablet extended release 8 meq PO DAILY Qty: 90 3RF Discharge Orders: Discharge ED (Routine); Ordered 12/28/22 Ordered By: Nirav Hilton Referrals: Wayne Ruelas MD [Primary Care Provider] - Patient Instructions: Acute Low Back Pain (ED), Opioid Safety, Pain Management Activity Restrictions/Additional Instructions: Return for fever greater than 100, inability to urinate, vomiting liquids or medications, mental status changes, any other concerning symptoms Coding Level of Care Code ED Shoe Lay Out Planner for Ashlie Webber
[2022-12-28] MEDS: ondansetron 2 mg/ML SDV 2 mL 4 MG IVP (03:44)
[2022-12-28] MEDS: morphine 4 mg/mL SDV 1 mL 2 MG IVP (03:47)
[2022-12-28 03:52] LABS: Basophils # 0.1 10^3/uL (0.0-0.1); Basophils % 0.6 %; Eosinophils # 0.2 10^3/uL (0.0-0.8); Eosinophils % 2.6 %; Hematocrit 38.7 % (42.0-52.0); Hemoglobin 13.3 g/dL (11.7-16.6); Lymphocytes # 1.2 10^3/uL (0.8-4.8); Lymphocytes % 14.8 %; Mean Corpuscular HGB Conc 34.4 g/dL (30.0-36.0); Mean Corpuscular Hemoglobin 31.7 pg (28.0-34.0); Mean Corpuscular Volume 92.1 fl (80-94); Mean Platelet Volume 10.9 fL (7.4-10.4); Monocytes # 0.7 10^3/uL (0.2-0.9); Monocytes % 8.9 %; Neutrophils % 72.5 %; Nucleated Red Blood Cells % 0 %; Platelet Count 226 10^3/cmm (130-400); Red Cell Distribution Width 12.9 % (12.1-15.1); White Blood Count 8.1 10^3/uL (4.0-10.0)
[2022-12-28 04:08] LABS: Alanine Aminotransferase 35 U/L (0-41); Albumin Level 3.9 g/dL (3.5-5.2); Alkaline Phosphatase 86 U/L (40-130); Anion Gap 15.8 (5-19); Aspartate Amino Transferase 39 U/L (0-40); Blood Urea Nitrogen 28 mg/dL (8-23); C Reactive Protein 11.1 mg/L (0.0-4.9); Calcium 8.9 mg/dL (8.5-10.5); Carbon Dioxide 24 mmol/L (22-29); Chloride 102 mmol/L (98-107); Creatinine Clr Calc Pharmacy 45.3592; Globulin 2.8 g/dL (1.3-4.6); Glucose 146 mg/dL (65-115); Osmolality Calculated 294 mOsm/kg (285-295); Potassium 3.8 mmol/L (3.5-5.1); Sodium 138 mmol/L (136-145); Total Protein 6.7 g/dL (6.6-8.7)
[2022-12-28] MEDS: dexamethasone 4 mg/mL INJ 8 MG IVP (05:44)
[2022-12-28 06:18] LABS: Urine Appearance Cloudy (CLEAR); Urine Color Dark Yellow (Yellow)
[2022-12-28 06:19] LABS: Add Urine Microscopic? YES; Bilirubin Urine 1+ (Negative); Blood Urine 3+ (Negative); Glucose Urine UA Norm (Normal); Ketones Urine Negative (Negative); Leukocyte Esterase Urine Negative (Negative); Nitrate Urine Negative (Negative); Protein Urine 1+ (Negative); Specific Gravity, Urine 1.015 (1.005-1.030); Urobilinogen Urine Norm (Negative); pH Urine 5 (5-7)
[2022-12-28 06:24] LABS: RBC Urine TOO NUMEROUS TO CNT /hpf (0-2)
[2022-12-28 06:25] LABS: Add Urine Culture? Yes; Bacteria Urine 1+ /hpf; WBC Urine 15-25 /hpf (0-5)
[2022-12-28 06:41] VITALS: BP 137/81; PULSE 72; TEMP 36.6; O2SAT 99
== END 2022-12-28 06:43 | disposition home or self-care (01) ==
PROVIDERS: Emergency Provider Emergency Medicine; PCP Family Medicine
DX: M47.816 Spondylosis without myelopathy or radiculopathy, lumbar region (principal); Z79.02 Long term (current) use of antithrombotics/antiplatelets; Z95.0 Presence of cardiac pacemaker; E78.5 Hyperlipidemia, unspecified; I10 Essential (primary) hypertension
CPT/HCPCS: 74176; 80053; 81001; 85025; 86140; 87086; 96374; 96375; 99285; J1100; J2270; J2405

== ENCOUNTER 2022-12-29 19:42 | Emergency (ER) | payer MEDICARE, SELFPAY ==
[2022-12-29 19:48] VITALS: BP 141/67; PULSE 68; RESP 17; TEMP 36.6; O2SAT 96
--- NOTE | 2022-12-29 20:00 | ED_ITS ---
HPI - Back Pain/Injury General: Chief Complaint: Back Pain/Injury Stated Complaint: Back pain Time Seen by Provider: 12/29/22 20:00 History of Present Illness: 87-year-old male patient comes in today with increased back pain. Patient reports he received a injection of steroids Thursday morning and had had some improvement in his back pain throughout Thursday but over the last 12 hours he is having increasing discomfort. Review of the record noted patient has CT done no signs of infection were noted and significant facet arthropathy and spondylosis was noted. Patient does take naproxen routinely for his pain. Patient appears nontoxic. Patient reports hydrocodone does not help with pain. 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 Renal calculus, left Ureteral calculus, left Urolithiasis WPW (Zhegy-Zeetimsae-Mfhri syndrome) Surgical History H/O hernia repair H/O vasectomy History of PTCA Hx of cholecystectomy Family History Mother , IN HER 80'S CAD (coronary artery disease) Father , AT AGE 85 Cancer Lung disease Other Hypertension Social History Smoking and tobacco status: never smoked Alcohol intake: never Substance/Drug Use: never Marital status: / Current occupational status: retired Physical Exam Const: COMMON NORMALS: alert HENMT: COMMON NORMALS: normocephalic HEAD & SCALP: normocephalic THROAT: posterior oropharynx normal Neck/C-Spine: COMMON NORMALS: full ROM Resp: COMMON NORMALS: normal respiratory effort Cardio: COMMON NORMALS: regular rate RATE: regular rate Back/Pelvis: LUMBAR SPINE/LOWER BACK: Yes lumbar spinal tenderness and Yes paraspinal muscle tenderness Extremity: COMMON NORMALS: normal to inspection and no pedal edema NARRATIVE EXTREMITY EXAM: Bilateral lower extremity edema Neuro: COMMON NORMALS: moves all extremities SENSORIUM/ORIENTATION: Yes alert Skin: COMMON NORMALS: turgor normal GENERAL SKIN EXAM: turgor normal Course Vital Signs: Vital signs: Vital Signs Temperature 97.9 F 12/29/22 19:48 Pulse Rate 68 12/29/22 19:48 Respiratory Rate 17 12/29/22 19:48 Blood Pressure 141/67 12/29/22 19:48 Pulse Oximetry 96 12/29/22 19:48 Oxygen Delivery Me thod Room Air 12/29/22 19:48 MDM - Back Pain/Injury Medical Decision Making 87-year-old male patient comes in with worsening back pain. Patient was seen Thursday and was given a dose of dexamethasone which seemed to improve his back pain significantly throughout Thursday and this morning. Today patient reported then recurrence of back pain and believes he needs another injection of steroid. Patient denies any fever or chills. Review of the record noted a thorough work-up with CT scan Thursday. No signs of discitis or infection was noted. We will go ahead and repeat dexamethasone 10 mg IM. Patient then will be started on prednisone 20 mg daily for the next 10 days. Recommend follow-up with orthopedic spine for further evaluation and consideration of other treatment options. Patient reported understanding and agreed to plan. Discharge Plan Discharge Patient Disposition: Home Clinical Impression: Lumbar spondylosis Condition: Stable Prescriptions: New prednisone 20 mg tablet 20 mg PO DAILY Qty: 10 0RF No Action tramadol 50 mg tablet 50 mg PO DAILY naproxen sodium [Aleve] 220 mg tablet 220 mg PO BID PRN (Reason: Pain) pyridoxine (vitamin B6) 250 mg tablet 250 mg PO DAILY losartan 50 mg tablet 50 mg PO DAILY Flomax 0.4 mg capsule 0.4 mg PO DAILY Qty: 30 12RF lisinopril 40 mg tablet 40 mg PO DAILY 90 Days Qty: 90 3RF atorvastatin 40 mg tablet 40 mg PO DAILY Qty: 90 3RF Plavix 75 mg tablet 75 mg PO DAILY Qty: 90 3RF Hold Instructions: Resume on 12/25/22. furosemide 20 mg tablet 20 mg PO DAILY Qty: 90 3RF potassium chloride 8 mEq tablet extended release 8 meq PO DAILY Qty: 90 3RF hydrocodone-acetaminophen 5-325 mg tablet 1 tab PO Q6H PRN (Reason: Renal colic) 4 Days Qty: 7 0RF Discharge Orders: Discharge ED (Routine); Ordered 12/29/22 Ordered By: Bryon Salgado Referrals: Wayne Ruelas MD [Primary Care Provider] - Discharge Diet: Usual diet Discharge Activity: Increase activity as tolerated Patient Instructions: Back Pain (ED) Activity Restrictions/Additional Instructions: Home and rest. Activity as tolerated. Use ice or heat for further pain relief. Follow-up with primary care as needed. manager beverage will contact you regarding follow-up appointment with orthopedic spine. Coding Level of Care Code ED Wire Frame Lampshade Maker for Ashlie Webber
[2022-12-29] MEDS: dexamethasone 10 mg/mL INJ IM (20:53)
--- NOTE | 2022-12-30 08:07 | DCPLANNER ---
Addendum entered by Emily Malin 01/12/23 11:30: Patient had a follow up appointment at ortho - patient did attend appointment. Addendum entered by Emily Malin 12/31/22 13:14: Patient has a follow up appointment scheduled for , January 08, 2023 at 9:30 with Vimal Huston at ortho. Original Note: assistant accounting manager had message to schedule a follow up appointment for patient with ortho. assistant accounting manager sent patients information to the front office staff at ortho. Patients information will be printed and reviewed. Clinic will call patient with appointment information.
== END 2022-12-29 20:55 | disposition home or self-care (01) ==
PROVIDERS: Emergency Provider Nurse Practitioner Family; PCP Family Medicine
DX: M47.816 Spondylosis without myelopathy or radiculopathy, lumbar region (principal); Z79.02 Long term (current) use of antithrombotics/antiplatelets; Z95.0 Presence of cardiac pacemaker; E78.5 Hyperlipidemia, unspecified; I10 Essential (primary) hypertension
CPT/HCPCS: 96372; 99284; J1100

== ENCOUNTER → 2022-12-30 09:30 | Outpatient (BNVA) | payer MEDICARE, SELFPAY | PROVIDERS: PCP Family Medicine; Visit Provider Urology | DX: N40.1 Benign prostatic hyperplasia with lower urinary tract symptoms (principal) | CPT/HCPCS: 52310; 81003 ==

== ENCOUNTER → 2023-01-08 09:48 | Outpatient (BNVA) | payer MEDICARE, SELFPAY | PROVIDERS: PCP Family Medicine; Referring Provider Nurse Practitioner Family; Visit Provider Physician Assistant | DX: M43.16 Spondylolisthesis, lumbar region (principal); M47.816 Spondylosis without myelopathy or radiculopathy, lumbar region | CPT/HCPCS: 72110; 99213 ==

== ENCOUNTER 2023-01-20 18:56 | Emergency (ER) | payer MEDICARE, SELFPAY ==
[2023-01-20] VITALS (7 sets, daily range): BP systolic 100–124; BP diastolic 50–67; PULSE 58–86; RESP 18; TEMP 37.6; O2SAT 95–98; BMI 17.9
[2023-01-20 19:41] LABS: Basophils % 0.4 %; Eosinophils # 0.1 10^3/uL (0.0-0.8); Eosinophils % 0.8 %; Hemoglobin 12.4 g/dL (11.7-16.6); Lymphocytes # 0.7 10^3/uL (0.8-4.8); Lymphocytes % 6.6 %; Mean Corpuscular HGB Conc 35.4 g/dL (30.0-36.0); Mean Corpuscular Hemoglobin 31.2 pg (28.0-34.0); Mean Corpuscular Volume 88.2 fl (80-94); Mean Platelet Volume 10.6 fL (7.4-10.4); Monocytes # 0.7 10^3/uL (0.2-0.9); Monocytes % 6.2 %; Neutrophils # 9.04 10^3/uL (1.8-7.7); Neutrophils % 85.3 %; Nucleated Red Blood Cells % 0 %; Platelet Count 211 10^3/cmm (130-400); Red Blood Count 3.97 10^6/uL (4.1-5.3); Red Cell Distribution Width 12.5 % (12.1-15.1); White Blood Count 10.6 10^3/uL (4.0-10.0)
--- NOTE | 2023-01-20 19:47 | ED_ITS ---
HPI - Back Pain/Injury General: Chief Complaint: Back Pain/Injury Stated Complaint: chills and shaking, back pain Time Seen by Provider: 01/20/23 19:04 History of Present Illness: Patient presents to the ER with a 2-day history of chills, shaking, low back pain, patient does state he has had decreased urinary output but denies pain burning or frequency. Patient does have a history of kidney stones with stone removal in the recent past. Patient does state he has a bad low back and has had CT and x-rayed and has appointment with the spine surgeon and pain management doc. 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 Renal calculus, left Ureteral calculus, left Urolithiasis WPW (Ftaly-Bdemccinq-Vpwqu syndrome) Surgical History H/O hernia repair H/O vasectomy History of PTCA Hx of cholecystectomy Family History Mother , IN HER 80'S CAD (coronary artery disease) Father , AT AGE 85 Cancer Lung disease Other Hypertension Social History Smoking and tobacco status: never smoked Alcohol intake: never Substance/Drug Use: never Marital status: / Current occupational status: retired Physical Exam Const: COMMON NORMALS: no acute distress, average body habitus, patient oriented x3, no limitations, healthy appearing, alert and well nourished HENMT: COMMON NORMALS: normocephalic, atraumatic, hearing grossly normal bilaterally, external ears normal, Normal external nose present and moist oral mucous membranes HEAD & SCALP: normocephalic and atraumatic NOSE: Normal external nose present EXTERNAL EAR: Yes external ears normal Eye: COMMON NORMALS: Equal, round and reactive pupils present, EOMs intact bilaterally, conjunctivae normal and no scleral icterus CONJUNCTIVA: Yes conjunctivae normal PUPIL: Yes Equal, round and reactive pupils present Neck/C-Spine: COMMON NORMALS: full ROM, no lymphadenopathy, supple, no meningeal signs, no JVD and Thyroid normal THYROID: Thyroid normal Lymph: LYMPHATIC: no lymphadenopathy noted Chest: COMMONS NORMALS: normal inspection of the chest and normal palpation of entire chest wall Resp: COMMON NORMALS: normal respiratory effort, No retractions, No use of accessory muscles and clear to auscultation bilaterally AUSCULTATION: clear to auscultation bilaterally Cardio: COMMON NORMALS: no JVD, regular rate, regular rhythm, S1 normal heart sound present, S2 normal heart sound present, No gallops present (Cardio), No clicks present (Cardio), No murmurs present (Cardio) and No rub (Cardio) RATE: regular rate RHYTHM: regular rhythm HEART SOUNDS: S1 normal heart sound present and S2 normal heart sound present GI: COMMON NORMALS: Normal to inspection, nondistended, normoactive bowel sounds present, Soft to palpation, non-tender, No hepatosplenomegaly present and no masses PALPATION: Yes Soft to palpation and Yes No hepatosplenomegaly present : COMMON NORMALS: Yes no CVA tenderness BLADDER/KIDNEY EXAM: Yes no CVA tenderness Back/Pelvis: COMMON NORMALS: no CVA tenderness Neuro: COMMON NORMALS: patient oriented x3 SENSORIUM/ORIENTATION: Yes alert MENINGEAL SIGNS: Yes no meningeal signs Course Vital Signs: Vital signs: Vital Signs Temperature 99.7 F H 01/20/23 19:09 Pulse Rate 58 L 01/20/23 19:15 Respiratory Rate 18 01/20/23 19:15 Blood Pressure 100/53 01/20/23 20:32 Pulse Oximetry 96 01/20/23 20:30 Oxygen Delivery Me thod Room Air 01/20/23 20:30 MDM - Back Pain/Injury Medical Decision Making Patient presents to the ER with complaints of decreased urination and low back pain. Patient states he has upcoming appointments with the spinal surgeon and the pain management doctor for his chronic low back pain. Patient states he has had a kidney stone removed by Dr. Mccloud urology. Patient states been more constipated since then. Patient's been having chills and shaking episodes least once a day for the last 2 days. Patient's temperature was 98.1 yesterday at the time of chills. Urinalysis and blood work was obtained on the patient that showed white count of 10.6, BUN/creatinine of 33 and 1.4, urinalysis was negative for infection but did show 1+ glucose. Patient's temperature in the ER was 99.7. A bladder scan revealed no urinary retention. Patient was bolused 1 L normal saline as his elevated BUN and creatinine may be dehydration. Patient should follow-up with his primary care doctor as needed within the next 1 week. Patient should use [id number] Tylenol as needed for fever. Differential Diagnosis Unlikely lumbar radiculopathy, sciatica, strain of lumbar region, renal colic, pyelonephritis, thoracic back pain, AAA or discitis Medical Records I reviewed the patient's medical records. Labs I reviewed the patient's lab results. 01/20/23 19:32 01/20/23 19:32 Laboratory Results WBC 10.6 10^3/uL (4.0-10.0) H 01/20/23 19:32 RBC 3.97 10^6/uL (4.1-5.3) L 01/20/23 19:32 Hgb 12.4 g/dL (11.7-16.6) 01/20/23 19: Hct 35.0 % (42.0-52.0) L 01/20/23 19: MCV 88.2 fl (80-94) 01/20/23 19: MCH 31.2 pg (28.0-34.0) 01/20/23 19: MCHC 35.4 g/dL (30.0-36.0) 01/20/23 19: RDW 12.5 % (12.1-15.1) 01/20/23 19:32 Plt Count 211 10^3/cmm (130-400) 01/20/23 19: MPV 10.6 fL (7.4-10.4) H 01/20/23 19:32 Neut % (Auto) 85.3 % 01/20/23 19:32 Lymph % (Auto) 6.6 % 01/20/23 19:32 [place] % (Auto) 6.2 % 01/20/23 19:32 Eos % (Auto) 0.8 % 01/20/23 19:32 Baso % (Auto) 0.4 % 06/06/23 19:32 Neut # (Auto) 9.04 10^3/uL (1.8-7.7) H 01/20/23 19:32 Lymph # (Auto) 0.7 10^3/uL (0.8-4.8) L 01/20/23 19:32 [place] # (Auto) 0.7 10^3/uL (0.2-0.9) 01/20/23 19:32 Eos # (Auto) 0.1 10^3/uL (0.0-0.8) 01/20/23 19:32 Baso # (Auto) 0.0 10^3/uL (0.0-0.1) 01/20/23 19:32 Nucleated RBC % (auto) 0 % 01/20/23 19:32 Nucleated RBCs # 0.0 /100WBC 01/20/23 19:32 Sodium 132 mmol/L (136-145) L 01/20/23 19:32 Potassium 4.0 mmol/L (3.5-5.1) 01/20/23 19:32 Chloride 97 mmol/L (98-107) L 01/20/23 19:32 Carbon Dioxide 24 mmol/L (22-29) 01/20/23 19:32 Anion Gap 15.0 (5-19) 01/20/23 19:32 BUN 33 mg/dL (8-23) H 01/20/23 19:32 Creatinine 1.4 mg/dL (0.7-1.2) H 01/20/23 19:32 GFR Calculation Not Reportable 01/20/23 19:32 Glucose 230 mg/dL (65-115) H 01/20/23 19:32 Calculated Osmolality 289 mOsm/kg (285-295) 01/20/23 19:32 Calcium 8.6 mg/dL (8.5-10.5) 01/20/23 19:32 Magnesium 1.5 mg/dL (1.7-2.3) L 01/20/23 19:32 Total Bilirubin 0.8 mg/dL (0.15-1.2) 01/20/23 19:32 AST 39 U/L (0-40) 01/20/23 19:32 ALT 45 U/L (0-41) H 01/20/23 19:32 Alkaline Phosphatase 99 U/L (40-130) 01/20/23 19:32 Total Protein 5.9 g/dL (6.6-8.7) L 01/20/23 19:32 Albumin 3.5 g/dL (3.5-5.2) 01/20/23 19:32 Globulin 2.4 g/dL (1.3-4.6) 01/20/23 19:32 Urine Color Yellow (Yellow) 01/20/23 19:51 Urine Appearance Clear (CLEAR) 01/20/23 19:51 Urine pH 5 (5-7) 01/20/23 19:51 Ur Specific [place] 1.020 (1.005-1.030) 01/20/23 19:51 Urine Protein Trace (Negative) 01/20/23 19:51 Urine Glucose (UA) 1+ (Normal) H 01/20/23 19:51 Urine Ketones Negative (Negative) 01/20/23 19:51 Urine Blood Neg (Negative) 01/20/23 19:51 Urine Nitrate Negative (Negative) 01/20/23 19:51 Urine Bilirubin 1+ (Negative) H 01/20/23 19:51 Urine Urobilinogen Neg mg/dL (Negative) 01/20/23 19:51 Ur Leukocyte Esterase Negative (Negative) 01/20/23 19:51 Urine RBC 0-4 /hpf (0-2) H 01/20/23 19:51 Urine WBC None /hpf (0-5) 01/20/23 19:51 Ur Squamous Epith Cells None /hpf (0-5) 01/20/23 19:51 Amorphous Sediment Not Reportable 01/20/23 19:51 Urine Bacteria Trace /hpf (NONE) 01/20/23 19:51 Urine Mucus 2+ /hpf 01/20/23 19:51 Discharge Plan Discharge Patient Disposition: Home Clinical Impression: Lumbar back pain, Chills Condition: Stable Prescriptions: No Action tramadol 50 mg tablet 50 mg PO DAILY naproxen sodium [Aleve] 220 mg tablet 220 mg PO BID PRN (Reason: Pain) pyridoxine (vitamin B6) 250 mg tablet 250 mg PO DAILY losartan 50 mg tablet 50 mg PO DAILY Flomax 0.4 mg capsule 0.4 mg PO DAILY Qty: 30 12RF prednisone 20 mg tablet 20 mg PO DAILY Qty: 15 0RF Rx Instructions: 60mg x 3 days 40mg x 2 days 20mg x 2 days lisinopril 40 mg tablet 40 mg PO DAILY 90 Days Qty: 90 3RF atorvastatin 40 mg tablet 40 mg PO DAILY Qty: 90 3RF Plavix 75 mg tablet 75 mg PO DAILY Qty: 90 3RF Hold Instructions: Resume on 12/25/22. furosemide 20 mg tablet 20 mg PO DAILY Qty: 90 3RF potassium chloride 8 mEq tablet extended release 8 meq PO DAILY Qty: 90 3RF hydrocodone-acetaminophen 5-325 mg tablet 1 tab PO Q6H PRN (Reason: Renal colic) 4 Days Qty: 7 0RF prednisone 20 mg tablet 20 mg PO DAILY Qty: 10 0RF Discharge Orders: Discharge ED (Routine); Ordered 01/20/23 Ordered By: Trenton Rogers Referrals: Wayne Ruelas MD [Primary Care Provider] - 1 week Patient Instructions: Fever in Adults (ED), Acute Low Back Pain (ED) Activity Restrictions/Additional Instructions: Fever andPlease drink plenty of fluids, please take [id number] Tylenol as directed chills. Please follow-up with your family practice doctor next 7 to 10 days for further work-up as needed. Please return to the ER if your symptoms return and/or worsen. Coding Level of Care Code ED Wallpaper Consultant for Ashlie Webber
[2023-01-20 19:57] LABS: Alanine Aminotransferase 45 U/L (0-41); Albumin Level 3.5 g/dL (3.5-5.2); Alkaline Phosphatase 99 U/L (40-130); Aspartate Amino Transferase 39 U/L (0-40); Blood Urea Nitrogen 33 mg/dL (8-23); Calcium 8.6 mg/dL (8.5-10.5); Carbon Dioxide 24 mmol/L (22-29); Chloride 97 mmol/L (98-107); Globulin 2.4 g/dL (1.3-4.6); Glucose 230 mg/dL (65-115); Magnesium 1.5 mg/dL (1.7-2.3); Osmolality Calculated 289 mOsm/kg (285-295); Sodium 132 mmol/L (136-145); Total Bilirubin 0.8 mg/dL (0.15-1.2); Total Protein 5.9 g/dL (6.6-8.7)
[2023-01-20 20:16] LABS: Add Urine Culture? No; Add Urine Microscopic? YES; Bacteria Urine TRACE /hpf; Bilirubin Urine 1+ (Negative); Blood Urine Neg (Negative); Glucose Urine UA 1+ (Normal); Ketones Urine Negative (Negative); Leukocyte Esterase Urine Negative (Negative); Mucus Urine 2+ /hpf; Nitrate Urine Negative (Negative); Protein Urine Trace (Negative); RBC Urine 0-4 /hpf (0-2); Urine Appearance Clear (CLEAR); Urine Color Yellow (Yellow); Urobilinogen Urine Neg (Negative); pH Urine 5 (5-7)
[2023-01-20] MEDS: sodium chloride 0.9% 1,000 ML 999 ML IV (20:52)
== END 2023-01-20 22:32 | disposition home or self-care (01) ==
PROVIDERS: Emergency Provider Emergency Medicine; PCP Family Medicine
DX: M54.50 Low back pain, unspecified (principal); R68.83 Chills (without fever)
CPT/HCPCS: 51798; 80053; 81001; 83735; 85025; 96360; 96361; 99284; J7030

== ENCOUNTER 2023-01-26 12:59 | Emergency (ER) | payer MEDICARE, SELFPAY ==
[2023-01-26 13:03] VITALS: BP 110/66; PULSE 75; RESP 16; O2SAT 95
--- NOTE | 2023-01-26 15:38 | W.ED.MALEGU ---
HPI - Male Genitourinary General: Chief complaint: Urogenital-Male Stated complaint: low back pain Time Seen by Provider: 01/26/23 15:25 Source: patient Mode of arrival: ambulatory History of Present Illness: 71-year-old male presents emergency room with complaint of right flank pain suprapubic pain. Earlier this year he had a cystoscopy for distal ureteral stone removal with stent placement that was later removed. He noticed some oranges colored urine today and has had frequent urination has not had any zoraida hematuria denies any dysuria but he has had significant frequency. Low-grade subjective fever. No vomiting no diarrhea. Pain originates in the right flank radiates down the right lower quadrant and groin Onset (ago): day(s) Duration: constant Location: right flank Severity: moderate Quality: sharp Relieving factors: none Exacerbating factors: none Associated symptoms: Deny discharge, dysuria, fevers/chills, hematuria, nausea, rash, swelling, urinary incontinence, urinary retention, mass or vomiting Review of Systems Const: Denies: fever(s), chills, body aches, change in appetite, fatigue or malaise ENMT: Denies: throat pain, ear or mastoid pain, nasal discharge or nasal congestion Card: Denies: chest pain, palpitations, irregular heart rhythm, edema, dyspnea on exertion or orthopnea Resp: Denies: dyspnea, productive cough or non-productive cough GI: Reports: abdominal pain; Denies: nausea or vomiting : Reports: flank pain, urinary frequency and urinary urgency; Denies: dysuria, urinary incontinence or hematuria Skin/Breast: Denies: rash or pruritus PFSH ED PFSH: Medical History Atypical chest pain BPH loc w urin obs/LUTS Chronic low back pain Edema, peripheral History of pacemaker Hyperlipidemia Hypertension 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 Renal calculus, left Ureteral calculus, left Urolithiasis WPW (Peqod-Lnvhakcwa-Arqjp syndrome) Surgical History H/O hernia repair H/O vasectomy History of PTCA Hx of cholecystectomy Family History Mother , IN HER 80'S CAD (coronary artery disease) Father , AT AGE 85 Cancer Lung disease Other Hypertension Social History Smoking and tobacco status: never smoked Alcohol intake: never Substance/Drug Use: never Marital status: / Current occupational status: retired Physical Exam Const: GENERAL APPEARANCE: cooperative and comfortable ORIENTATION/CONSCIOUSNESS: Yes awake, Yes oriented to person, Yes oriented to place and Yes oriented to time HENMT: COMMON NORMALS: normocephalic, atraumatic and hearing grossly normal bilaterally HEAD & SCALP: normocephalic and atraumatic Resp: COMMON NORMALS: normal respiratory effort, No retractions, No use of accessory muscles and clear to auscultation bilaterally AUSCULTATION: clear to auscultation bilaterally Cardio: COMMON NORMALS: regular rate, regular rhythm and No murmurs present (Cardio) RATE: regular rate RHYTHM: regular rhythm GI: COMMON NORMALS: Soft to palpation and No hepatosplenomegaly present AUSCULTATION: Yes normoactive bowel sounds PALPATION: Yes Soft to palpation, No Tenderness to palpation present (GI), No Guarding due to palpation present (GI) and Yes No hepatosplenomegaly present Extremity: COMMON NORMALS: normal to inspection, capillary refill normal, no clubbing, cyanosis or edema, no calf tenderness and no pedal edema Neuro: SENSORIUM/ORIENTATION: Yes oriented to person, Yes oriented to place and Yes oriented to time Skin: COMMON NORMALS: no rashes or lesions noted GENERAL SKIN EXAM: no rashes or lesions noted Course Vital Signs: Vital signs: Vital Signs Pulse Rate 70 01/26/23 18:23 Respiratory Rate 16 01/26/23 18:23 Blood Pressure 133/75 01/26/23 18:23 Pulse Oximetry 99 01/26/23 18:23 Oxygen Delivery Me thod Room Air 01/26/23 13:03 MDM - Male Medical Decision Making Urine shows hematuria however the CT does not show any obstruction or ureteral stone. Based on his history and the urine findings I suspect he passed a small stone already. He is feeling better suspect his pain at this point is probably from ureteral spasm from the irritation of the stone passing. We will discharge him home have him follow-up with his urologist return if he has further problems. Pain medications given as well. At this point there is no sign of infection in the urine, antibiotics not indicated. Medical Records I reviewed the patient's medical records. Lab Data I reviewed the patient's lab results. 01/26/23 15:50 01/26/23 15:50 Radiology Impressions Abdomen/Pelvis CT 01/26/23 16:38 IMPRESSION: 1. Nonobstructing right renal calculi. No ureteral calculus or hydronephrosis. 2. Progressive endplate destruction at T12-L1. Osteomyelitis discitis is not excluded. 3. Mild diverticulosis of the distal colon without diverticulitis. 4. Left pulmonary nodules measuring up to 4 mm. For patients at low risk (minimal or absent history of smoking and of other known risk factors), no routine follow-up is indicated. For patients at high risk (history of smoking or of other known risk factors), consider optional CT Chest at 12 months. (Reference: Mally) References: Mally Huston, et al. Guidelines for Management of Incidental Pulmonary Nodules Detected on CT Images: From the Fleischner Society 2017. Radiology. 2017;284(1):228-243. Laboratory Results WBC 6.8 10^3/uL (4.0-10.0) 01/26/23 15:50 RBC 4.43 10^6/uL (4.1-5.3) 01/26/23 15:50 Hgb 13.9 g/dL (11.7-16.6) 01/26/23 15:50 Hct 39.5 % (42.0-52.0) L 01/26/23 15:50 MCV 89.2 fl (80-94) 01/26/23 15:50 MCH 31.4 pg (28.0-34.0) 01/26/23 15:50 MCHC 35.2 g/dL (30.0-36.0) 01/26/23 15:50 RDW 12.7 % (12.1-15.1) 01/26/23 15:50 Plt Count 304 10^3/cmm (130-400) 01/26/23 15:50 MPV 9.5 fL (7.4-10.4) 01/26/23 15:50 Neut % (Auto) 79.5 % 01/26/23 15:50 Lymph % (Auto) 12.2 % 01/26/23 15:50 [place] % (Auto) 5.6 % 01/26/23 15:50 Eos % (Auto) 1.5 % 01/26/23 15:50 Baso % (Auto) 0.6 % 01/26/23 15:50 Neut # (Auto) 5.40 10^3/uL (1.8-7.7) 01/26/23 15:50 Lymph # (Auto) 0.8 10^3/uL (0.8-4.8) 01/26/23 15:50 [place] # (Auto) 0.4 10^3/uL (0.2-0.9) 01/26/23 15:50 Eos # (Auto) 0.1 10^3/uL (0.0-0.8) 01/26/23 15:50 Baso # (Auto) 0.0 10^3/uL (0.0-0.1) 01/26/23 15:50 Nucleated RBC % (auto) 0 % 01/26/23 15:50 Nucleated RBCs # 0.0 /100WBC 01/26/23 15:50 Sodium 138 mmol/L (136-145) 01/26/23 15:50 Potassium 3.3 mmol/L (3.5-5.1) L 01/26/23 15:50 Chloride 99 mmol/L (98-107) 01/26/23 15:50 Carbon Dioxide 26 mmol/L (22-29) 01/26/23 15:50 Anion Gap 16.3 (5-19) 01/26/23 15:50 BUN 15 mg/dL (8-23) 01/26/23 15:50 Creatinine 0.9 mg/dL (0.7-1.2) 01/26/23 15:50 GFR Calculation Not Reportable 01/26/23 15:50 Glucose 153 mg/dL (65-115) H 01/26/23 15:50 Calculated Osmolality 290 mOsm/kg (285-295) 01/26/23 15:50 Calcium 9.5 mg/dL (8.5-10.5) 01/26/23 15:50 Total Bilirubin 1.2 mg/dL (0.15-1.2) 01/26/23 15:50 AST 30 U/L (0-40) 01/26/23 15:50 ALT 35 U/L (0-41) 01/26/23 15:50 Alkaline Phosphatase 139 U/L (40-130) H 01/26/23 15:50 Total Protein 6.6 g/dL (6.6-8.7) 01/26/23 15:50 Albumin 3.7 g/dL (3.5-5.2) 01/26/23 15:50 Globulin 2.9 g/dL (1.3-4.6) 01/26/23 15:50 Urine Color Light yellow (Yellow) 01/26/23 15:47 Urine Appearance Clear (CLEAR) 01/26/23 15:47 Urine pH 7 (5-7) 01/26/23 15:47 Ur Specific [place] 1.010 (1.005-1.030) 01/26/23 15:47 Urine Protein Neg (Negative) 01/26/23 15:47 Urine Glucose (UA) Norm (Normal) 01/26/23 15:47 Urine Ketones Negative (Negative) 01/26/23 15:47 Urine Blood 3+ (Negative) H 01/26/23 15:47 Urine Nitrate Negative (Negative) 01/26/23 15:47 Urine Bilirubin Neg (Negative) 01/26/23 15:47 Urine Urobilinogen Norm mg/dL (Negative) 01/26/23 15:47 Ur Leukocyte Esterase Negative (Negative) 01/26/23 15:47 Urine RBC 15-25 /hpf (0-2) H 01/26/23 15:47 Urine WBC 0-4 /hpf (0-5) H 01/26/23 15:47 Ur Squamous Epith Cells 0-4 /hpf (0-5) H 01/26/23 15:47 Amorphous Sediment Not Reportable 01/26/23 15:47 Urine Bacteria Trace /hpf (NONE) 01/26/23 15:47 Discharge Plan Discharge Patient Disposition: Home Clinical Impression: Nephrolithiasis Condition: Stable Prescriptions: New ondansetron HCl 4 mg tablet 4 mg PO Q6H PRN (Reason: nausea and vomiting) Qty: 10 0RF No Action tramadol 50 mg tablet 50 mg PO DAILY naproxen sodium [Aleve] 220 mg tablet 220 mg PO BID PRN (Reason: Pain) pyridoxine (vitamin B6) 250 mg tablet 250 mg PO DAILY losartan 50 mg tablet 50 mg PO DAILY Flomax 0.4 mg capsule 0.4 mg PO DAILY Qty: 30 12RF prednisone 20 mg tablet 20 mg PO DAILY Qty: 15 0RF Rx Instructions: 60mg x 3 days 40mg x 2 days 20mg x 2 days lisinopril 40 mg tablet 40 mg PO DAILY 90 Days Qty: 90 3RF atorvastatin 40 mg tablet 40 mg PO DAILY Qty: 90 3RF Plavix 75 mg tablet 75 mg PO DAILY Qty: 90 3RF Hold Instructions: Resume on 12/25/22. furosemide 20 mg tablet 20 mg PO DAILY Qty: 90 3RF potassium chloride 8 mEq tablet extended release 8 meq PO DAILY Qty: 90 3RF hydrocodone-acetaminophen 5-325 mg tablet 1 tab PO Q6H PRN (Reason: Renal colic) 4 Days Qty: 7 0RF prednisone 20 mg tablet 20 mg PO DAILY Qty: 10 0RF Discharge Orders: Discharge ED (Routine); Ordered 01/26/23 Ordered By: Lenin Ochoa Referrals: Wayne Ruelas MD [Primary Care Provider] - Discharge Diet: Usual diet Discharge Activity: Increase activity as tolerated Patient Instructions: Kidney Stones (ED), Opioid Safety, Pain Management Activity Restrictions/Additional Instructions: You are seen today for flank pain. There is evidence that you recently passed a kidney stone there is no obstructing kidney stone at this time. Use hydrocodone previously prescribed along with ondansetron as needed for nausea and vomiting. Increase fluids follow-up with your doctor as needed. Coding Level of Care Code ED Drone Software Development Engineer for Ashlie Webber
[2023-01-26 16:03] LABS: Basophils % 0.6 %; Eosinophils # 0.1 10^3/uL (0.0-0.8); Eosinophils % 1.5 %; Hematocrit 39.5 % (42.0-52.0); Hemoglobin 13.9 g/dL (11.7-16.6); Lymphocytes # 0.8 10^3/uL (0.8-4.8); Lymphocytes % 12.2 %; Mean Corpuscular HGB Conc 35.2 g/dL (30.0-36.0); Mean Corpuscular Hemoglobin 31.4 pg (28.0-34.0); Mean Corpuscular Volume 89.2 fl (80-94); Mean Platelet Volume 9.5 fL (7.4-10.4); Monocytes # 0.4 10^3/uL (0.2-0.9); Monocytes % 5.6 %; Neutrophils % 79.5 %; Nucleated Red Blood Cells % 0 %; Platelet Count 304 10^3/cmm (130-400); Red Blood Count 4.43 10^6/uL (4.1-5.3); Red Cell Distribution Width 12.7 % (12.1-15.1); White Blood Count 6.8 10^3/uL (4.0-10.0)
[2023-01-26 16:07] LABS: Add Urine Culture? Yes; Add Urine Microscopic? YES; Bacteria Urine TRACE /hpf; Bilirubin Urine Neg (Negative); Blood Urine 3+ (Negative); Glucose Urine UA Norm (Normal); Ketones Urine Negative (Negative); Leukocyte Esterase Urine Negative (Negative); Nitrate Urine Negative (Negative); Protein Urine Neg (Negative); RBC Urine 15-25 /hpf (0-2); Squamous Epithelial Cell Urine 0-4 /hpf (0-5); Urine Appearance Clear (CLEAR); Urine Color Light yellow (Yellow); Urobilinogen Urine Norm (Negative); WBC Urine 0-4 /hpf (0-5); pH Urine 7 (5-7)
[2023-01-26 16:19] LABS: Alanine Aminotransferase 35 U/L (0-41); Albumin Level 3.7 g/dL (3.5-5.2); Alkaline Phosphatase 139 U/L (40-130); Anion Gap 16.3 (5-19); Aspartate Amino Transferase 30 U/L (0-40); Blood Urea Nitrogen 15 mg/dL (8-23); Calcium 9.5 mg/dL (8.5-10.5); Carbon Dioxide 26 mmol/L (22-29); Chloride 99 mmol/L (98-107); Globulin 2.9 g/dL (1.3-4.6); Glucose 153 mg/dL (65-115); Osmolality Calculated 290 mOsm/kg (285-295); Potassium 3.3 mmol/L (3.5-5.1); Sodium 138 mmol/L (136-145); Total Bilirubin 1.2 mg/dL (0.15-1.2); Total Protein 6.6 g/dL (6.6-8.7)
--- NOTE | 2023-01-26 16:38 | CTR_ITS ---
PROCEDURE INFORMATION: Exam: CT Abdomen And Pelvis Without Contrast Exam date and time: 01/26/2023 4:47 PM Age: 87 years old Clinical indication: Abdominal pain; Prior surgery; Surgery date: 6+ months; Surgery type: Christy; Additional info: Flank pain TECHNIQUE: Imaging protocol: Computed tomography of the abdomen and pelvis without contrast. Radiation optimization: All CT scans at this facility use at least one of these dose optimization techniques: automated exposure control; mA and/or kV adjustment per patient size (includes targeted exams where dose is matched to clinical indication); or iterative reconstruction. REPORTING DATA: Count of CT and Cardiac NM exams in prior 12 months: This patient has received 3 known CTs and 0 known cardiac nuclear medicine studies in the 12 months prior to the current study. COMPARISON: CT kidney stone [id number] 12/28/2022 3:18 AM RADIATION DOSE METRICS: Total DLP (mGy-cm): 356 FINDINGS: Tubes, catheters and devices: Pacemaker leads in the heart. Lungs: Stable 3 mm and 4 mm left pulmonary nodules. Heart: Aortic valve calcifications. Coronary arteries: Coronary artery calcifications. Liver: Normal. No mass. Gallbladder and bile ducts: Cholecystectomy. Prominence of the extrahepatic bile ducts is consistent with reservoir effect. Pancreas: Normal. No ductal dilation. Spleen: Normal. No splenomegaly. Adrenal glands: Small calcifications in the left adrenal gland. Otherwise unremarkable. Kidneys and ureters: 3 mm and 4 mm right renal calculi. No ureteral calculus or hydronephrosis. The left kidney is normal. Chronic perinephric stranding. Stomach and bowel: Mild diverticulosis of the distal colon. No diverticulitis. Appendix: The appendix is visualized and is normal. Intraperitoneal space: Unremarkable. No free air. No significant fluid collection. Vasculature: Diffuse arterial calcifications. No aneurysm. Lymph nodes: Unremarkable. No enlarged lymph nodes. Urinary bladder: Unremarkable as visualized. Reproductive: Coarse calcifications in the prostate. Bones/joints: Scoliosis and degenerative changes of the spine. Stable anterior subluxation of L4 on L5. Progressive destruction of the endplates at T12-L1. Soft tissues: Left inguinal hernia containing fat and fluid. CT/CT kidney stone [id number] IMPRESSION: 1. Nonobstructing right renal calculi. No ureteral calculus or hydronephrosis. 2. Progressive endplate destruction at T12-L1. Osteomyelitis discitis is not excluded. 3. Mild diverticulosis of the distal colon without diverticulitis. 4. Left pulmonary nodules measuring up to 4 mm. For patients at low risk (minimal or absent history of smoking and of other known risk factors), no routine follow-up is indicated. For patients at high risk (history of smoking or of other known risk factors), consider optional CT Chest at 12 months. (Reference: Mally) References: Mally Huston, et al. Guidelines for Management of Incidental Pulmonary Nodules Detected on CT Images: From the Fleischner Society 2017. Radiology. 2017;284(1):228-243.
[2023-01-26 18:23] VITALS: BP 133/75; PULSE 70; RESP 16; O2SAT 99
== END 2023-01-26 18:24 | disposition home or self-care (01) ==
PROVIDERS: Emergency Provider Family Medicine; PCP Family Medicine
DX: N20.0 Calculus of kidney (principal); Z79.02 Long term (current) use of antithrombotics/antiplatelets; Z95.0 Presence of cardiac pacemaker; E78.5 Hyperlipidemia, unspecified; I10 Essential (primary) hypertension; Z87.442 Personal history of urinary calculi
CPT/HCPCS: 36415; 74176; 80053; 81001; 85025; 87086; 99284

== ENCOUNTER 2023-02-07 18:43 | Emergency (ER) | payer MEDICARE, SELFPAY ==
[2023-02-07 19:12] VITALS: BP 98/59; PULSE 64; RESP 16; TEMP 36.5; O2SAT 98
--- NOTE | 2023-02-07 20:23 | W.ED.BACK ---
HPI - Back Pain/Injury General: Chief Complaint: Back Pain/Injury Stated Complaint: Lower Back Pain Time Seen by Provider: 02/07/23 19:55 Source: patient and family History of Present Illness: This is an 87 year old gentleman who has been seen multiple times in the emergency department. He complaints of lower back pain, mainly on the right side. It is non radicular. It is significant, requiring pain medication, and he notes that pain medication he has at home is not really working. He took this this evening, without much relief at an hour, so decided to come to the hospital. His pain has now improved. He carries a normal conversation on my interview. He has a pain management appointment set up for Thursday. He has had imaging prior. His story is complicated by a ureteral stone and stent placement on that side, which has now been dealt with and stent removed. MD elicited complaint: back pain Pertinent past history: prior back pain Onset (ago): week(s) Timing: intermittent Severity: severe Similar Symptoms Previously: Yes Quality: sharp Location: lumbar spine and right lower back Radiation: none Exacerbating factors: movement Relieving factors: none Context: other Associated symptoms: Deny abdominal pain, chills, fever(s), nausea, tingling/numbness/burning or weakness Review of Systems Const: Denies: fever(s), chills or body aches Eyes: Denies: change in vision Card: Denies: chest pain or palpitations Resp: Denies: dyspnea, productive cough, non-productive cough or wheezing GI: Denies: abdominal pain or nausea Musc: Reports: back pain Skin/Breast: Denies: rash Neuro: Denies: headache(s), weakness in extremities, dizziness or confusion PFSH ED PFSH: Medical History Atypical chest pain BPH loc w urin obs/LUTS Chronic low back pain Edema, peripheral History of pacemaker Hyperlipidemia Hypertension 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 Renal calculus, left Ureteral calculus, left Urolithiasis WPW (Yilqr-Bokyfdyoq-Nzyqi syndrome) Surgical History H/O hernia repair H/O vasectomy History of PTCA Hx of cholecystectomy Family History Mother , IN HER 80'S CAD (coronary artery disease) Father , AT AGE 85 Cancer Lung disease Other Hypertension Social History Smoking and tobacco status: never smoked Alcohol intake: never Substance/Drug Use: never Marital status: / Current occupational status: retired Physical Exam Const: COMMON NORMALS: no acute distress GENERAL APPEARANCE: cooperative; not ill appearing and not frail appearing HENMT: COMMON NORMALS: normocephalic, atraumatic and Normal external nose present HEAD & SCALP: normocephalic and atraumatic FACE & SINUS: normal facial exam and face symmetric NOSE: Normal external nose present Eye: COMMON NORMALS: Equal, round and reactive pupils present and EOMs intact bilaterally PUPIL: Yes Equal, round and reactive pupils present Neck/C-Spine: GENERAL: Yes trachea midline Chest: CHEST: Yes Symmetrical chest wall rise Resp: COMMON NORMALS: normal respiratory effort, No retractions, No use of accessory muscles and clear to auscultation bilaterally AUSCULTATION: clear to auscultation bilaterally Cardio: COMMON NORMALS: regular rate and regular rhythm RATE: regular rate RHYTHM: regular rhythm GI: COMMON NORMALS: Normal to inspection, nondistended, normoactive bowel sounds present Back/Pelvis: OTHER: Examination of the lumbar spine reveals minimal to no midline tenderness. There is tenderness along me right iliolumbar ligament region. Straight leg raise test is negative bilaterally. Strength is intact distally. Capillary refill and sensation are normal. Extremity: COMMON NORMALS: no pedal edema Neuro: OMAR COMA SCALE: document GCS findings Omar coma scale eye opening: Spontaneous [place] coma scale verbal response: Orientated [place] coma scale motor response: Obey commands Omar coma scale total score: 15 SENSORY EXAM: Yes extremities (intact) Psych: COMMON NORMALS: speech normal SPEECH: Yes normal speech Skin: COMMON NORMALS: no rashes or lesions noted GENERAL SKIN EXAM: no rashes or lesions noted Course Vital Signs: Vital signs: Vital Signs Temperature 97.7 F 02/07/23 19:12 Pulse Rate 64 02/07/23 19:12 Respiratory Rate 16 02/07/23 19:12 Blood Pressure 98/59 02/07/23 19:12 Pulse Oximetry 98 02/07/23 19:12 Oxygen Delivery Me thod Room Air 02/07/23 19:12 MDM - Back Pain/Injury Medical Decision Making The patient is given an injection of steroid here, as well as pain medication. He is improved. Will increase narcotic equivalent of his pain medication until his appointment with pain management on Thursday. He knows to return for weakness, sensation changes, red flag symptoms, et cetera. Labs Laboratory Results Urine Color Yellow (Yellow) 02/07/23 20:47 Urine Appearance Clear (CLEAR) 02/07/23 20:47 Urine pH 7 (5-7) 02/07/23 20:47 Ur Specific [place] 1.000 (1.005-1.030) L 02/07/23 20:47 Urine Protein Neg (Negative) 02/07/23 20:47 Urine Glucose (UA) Norm (Normal) 02/07/23 20:47 Urine Ketones Negative (Negative) 02/07/23 20:47 Urine Blood Neg (Negative) 02/07/23 20:47 Urine Nitrate Negative (Negative) 02/07/23 20:47 Urine Bilirubin Neg (Negative) 02/07/23 20:47 Urine Urobilinogen Norm mg/dL (Negative) 02/07/23 20:47 Ur Leukocyte Esterase Negative (Negative) 02/07/23 20:47 Discharge Plan Discharge Patient Disposition: Home Clinical Impression: Spondylolisthesis at L4-L5 level, Lumbar spinal stenosis Condition: Stable Prescriptions: New Percocet 7.5-325 mg tablet 1 tab PO Q6H PRN (Reason: pain) Qty: 10 0RF Discontinued hydrocodone-acetaminophen 5-325 mg tablet 1 tab PO Q6H PRN (Reason: Renal colic) 4 Days Qty: 7 0RF No Action tramadol 50 mg tablet 50 mg PO DAILY naproxen sodium [Aleve] 220 mg tablet 220 mg PO BID PRN (Reason: Pain) pyridoxine (vitamin B6) 250 mg tablet 250 mg PO DAILY losartan 50 mg tablet 50 mg PO DAILY Flomax 0.4 mg capsule 0.4 mg PO DAILY Qty: 30 12RF prednisone 20 mg tablet 20 mg PO DAILY Qty: 15 0RF Rx Instructions: 60mg x 3 days 40mg x 2 days 20mg x 2 days hydrocodone-acetaminophen 5-325 mg tablet 1 tab PO BID PRN (Reason: pain) 7 Days Qty: 14 0RF Rx Instructions: Not to be taken with other opioids including oxycodone lisinopril 40 mg tablet 40 mg PO DAILY 90 Days Qty: 90 3RF atorvastatin 40 mg tablet 40 mg PO DAILY Qty: 90 3RF Plavix 75 mg tablet 75 mg PO DAILY Qty: 90 3RF Hold Instructions: Resume on 12/25/22. furosemide 20 mg tablet 20 mg PO DAILY Qty: 90 3RF potassium chloride 8 mEq tablet extended release 8 meq PO DAILY Qty: 90 3RF ondansetron HCl 4 mg tablet 4 mg PO Q6H PRN (Reason: nausea and vomiting) Qty: 10 0RF prednisone 20 mg tablet 20 mg PO DAILY Qty: 10 0RF Discharge Orders: Discharge ED (Routine); Ordered 02/07/23 Ordered By: Nirav Hilton Referrals: Wayne Ruelas MD [Primary Care Provider] - 1-3 days Patient Instructions: Lumbar Spinal Stenosis (ED), Opioid Safety, Pain Management Activity Restrictions/Additional Instructions: Keep your appointment with pain management on Thursday. Discontinue your hydrocodone in favor of the oxycodone you were prescribed this evening. Take sparingly. This medication can sometimes increase risk of falls, as your previous medication can as well. Return for problems. Coding Level of Care Code ED Wad Blanking Press Adjuster for Ashlie Webber
[2023-02-07 20:55] LABS: Add Urine Microscopic? NO; Charge for UA Resulting for Rev
[2023-02-07 20:59] LABS: Bilirubin Urine Neg (Negative); Blood Urine Neg (Negative); Glucose Urine UA Norm (Normal); Ketones Urine Negative (Negative); Leukocyte Esterase Urine Negative (Negative); Nitrate Urine Negative (Negative); Protein Urine Neg (Negative); Urine Appearance Clear (CLEAR); Urine Color Yellow (Yellow); Urobilinogen Urine Norm (Negative); pH Urine 7 (5-7)
[2023-02-07] MEDS: ondansetron 4 MG Tablet PO (21:01)
[2023-02-07] MEDS: HYDROmorphone 1 mg/mL INJ 1 mL IM (21:02)
[2023-02-07] MEDS: dexamethasone 10 mg/mL INJ 8 MG IM (21:02)
[2023-02-07] MEDS: methylPREDNISolone (DEPO) 80 MG/ML INJ 1 mL IM (21:02)
== END 2023-02-07 22:16 | disposition home or self-care (01) ==
PROVIDERS: Emergency Provider Emergency Medicine; PCP Family Medicine
DX: M43.16 Spondylolisthesis, lumbar region (principal); M48.061 Spinal stenosis, lumbar region without neurogenic claudication; Z79.02 Long term (current) use of antithrombotics/antiplatelets; Z95.0 Presence of cardiac pacemaker; E78.5 Hyperlipidemia, unspecified; I10 Essential (primary) hypertension
CPT/HCPCS: 81003; 96372; 99284; J1040; J1100; J1170; Q0162

== ENCOUNTER → 2023-02-10 08:33 | Outpatient (BNVA) | payer MEDICARE, SELFPAY | PROVIDERS: PCP Family Medicine; Visit Provider Anesthesiology Pain Medicine | DX: M48.061 Spinal stenosis, lumbar region without neurogenic claudication (principal); M79.604 Pain in right leg; M79.605 Pain in left leg; M43.16 Spondylolisthesis, lumbar region; M47.816 Spondylosis without myelopathy or radiculopathy, lumbar region | CPT/HCPCS: 99205 ==

== ENCOUNTER 2023-02-13 19:00 | Emergency (ER) | payer MEDICARE, SELFPAY ==
[2023-02-13 19:07] VITALS: BMI 19.0
[2023-02-13 19:10] VITALS: BP 95/53; PULSE 74; RESP 18; TEMP 36.7; O2SAT 98
--- NOTE | 2023-02-13 19:10 | ECG_ITS ---
[facility] Test Date: 2023-02-13 Pat Name: Brendan Thacker Department: Room: Gender: Male Product Marketing Specialist: : [id number] Requested By: iNrav Whitfield Order Number: [id number] Carloz MD: Darion Fish M.D. Measurements Intervals [place] Rate: 80 P: 76 UT: 181 QRS: -81 QRSD: 175 T: 87 QT: 451 QTc: 521 Interpretive Statements ELECTRONIC VENTRICULAR PACEMAKER Compared to ECG 12/24/2022 06:24:41 No significant changes Electronically Signed On 02-14-2023 6:00:07 CDT by Darion Fish M.D. [id number]
[2023-02-13 20:31] LABS: Basophils # 0.1 10^3/uL (0.0-0.1); Basophils % 0.4 %; Eosinophils # 0.1 10^3/uL (0.0-0.8); Eosinophils % 0.9 %; Hematocrit 37.9 % (42.0-52.0); Hemoglobin 13.2 g/dL (11.7-16.6); Lymphocytes # 1.7 10^3/uL (0.8-4.8); Mean Corpuscular HGB Conc 34.8 g/dL (30.0-36.0); Mean Corpuscular Hemoglobin 30.8 pg (28.0-34.0); Mean Corpuscular Volume 88.6 fl (80-94); Mean Platelet Volume 10.4 fL (7.4-10.4); Monocytes # 0.7 10^3/uL (0.2-0.9); Monocytes % 6.3 %; Neutrophils # 8.73 10^3/uL (1.8-7.7); Neutrophils % 75.9 %; Nucleated Red Blood Cells % 0 %; Platelet Count 401 10^3/cmm (130-400); Red Blood Count 4.28 10^6/uL (4.1-5.3); Red Cell Distribution Width 13.7 % (12.1-15.1); White Blood Count 11.5 10^3/uL (4.0-10.0)
[2023-02-13 20:50] LABS: Alanine Aminotransferase 37 U/L (0-41); Albumin Level 3.6 g/dL (3.5-5.2); Alkaline Phosphatase 155 U/L (40-130); Anion Gap 20.4 (5-19); Aspartate Amino Transferase 38 U/L (0-40); Blood Urea Nitrogen 30 mg/dL (8-23); C Reactive Protein 4.4 mg/L (0.0-4.9); Calcium 9.7 mg/dL (8.5-10.5); Carbon Dioxide 23 mmol/L (22-29); Chloride 95 mmol/L (98-107); Creatinine Clr Calc Pharmacy 39.6894; Glucose 197 mg/dL (65-115); Osmolality Calculated 290 mOsm/kg (285-295); Potassium 4.4 mmol/L (3.5-5.1); Sodium 134 mmol/L (136-145); Total Bilirubin 0.9 mg/dL (0.15-1.2); Total Protein 6.6 g/dL (6.6-8.7)
[2023-02-13 20:59] LABS: Add Urine Microscopic? NO; Charge for UA Resulting for Rev
--- NOTE | 2023-02-13 21:05 | ED_ITS ---
HPI - Weakness General: Chief complaint: Weakness Stated complaint: fatigue, chronic pain Time Seen by Provider: 02/13/23 19:46 History of Present Illness: Patient presents to the ER with complaints of low back pain and spinal stenosis. Patient has seen the pain doc and he plans on good to having a nerve ablation done on February 23. Patient was given some Dilaudid to Percocet the last time he was here in ER and went home and did mediocre early. When he saw the pain clinic doc he wanted him to come off of that and try hydrocodone 2 pills a day. Patient says this just does not work and he cannot function at all he can barely get out of bed. By time he gets out of bed he is in so much pain that he can barely drink 1 Ensure before has to go lay back down. Patient does not think he can make it till February 23 at this rate. Patient would like to be admitted to the hospital for pain control to find something that works better than the hydrocodone. 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 Renal calculus, left Ureteral calculus, left Urolithiasis WPW (Gnexq-[id number]-Fxqsx syndrome) Surgical History H/O hernia repair H/O vasectomy History of PTCA Hx of cholecystectomy Family History Mother , IN HER 80'S CAD (coronary artery disease) Father , AT AGE 85 Cancer Lung disease Other Hypertension Social History Smoking and tobacco status: never smoked Alcohol intake: never Substance/Drug Use: never Marital status: / Current occupational status: retired Physical Exam Const: COMMON NORMALS: average body habitus, patient oriented x3, no limitations, healthy appearing and alert HENMT: COMMON NORMALS: normocephalic, atraumatic, hearing grossly normal bilaterally, external ears normal, Normal external nose present and moist oral mucous membranes HEAD & SCALP: normocephalic and atraumatic NOSE: Normal external nose present EXTERNAL EAR: Yes external ears normal Neck/C-Spine: COMMON NORMALS: full ROM, no lymphadenopathy, supple, no meningeal signs, no JVD and Thyroid normal THYROID: Thyroid normal Chest: COMMONS NORMALS: normal inspection of the chest and normal palpation of entire chest wall Resp: COMMON NORMALS: normal respiratory effort, No retractions, No use of accessory muscles and clear to auscultation bilaterally AUSCULTATION: clear to auscultation bilaterally Cardio: COMMON NORMALS: no JVD, regular rate, regular rhythm, S1 normal heart sound present, S2 normal heart sound present, No gallops present (Cardio), No clicks present (Cardio), No murmurs present (Cardio) and No rub (Cardio) RATE: regular rate RHYTHM: regular rhythm HEART SOUNDS: S1 normal heart sound present and S2 normal heart sound present GI: COMMON NORMALS: Normal to inspection, nondistended, normoactive bowel sounds present, Soft to palpation, non-tender, No hepatosplenomegaly present and no masses PALPATION: Yes Soft to palpation and Yes No hepatosplenomegaly present Back/Pelvis: LUMBAR SPINE/LOWER BACK: Yes ROM limited, Yes pain with ROM, Yes lumbar spinal tenderness and Yes paraspinal muscle tenderness Neuro: COMMON NORMALS: patient oriented x3 SENSORIUM/ORIENTATION: Yes alert MENINGEAL SIGNS: Yes no meningeal signs Course Vital Signs: Vital signs: Vital Signs Temperature 98.0 F 02/13/23 19:10 Pulse Rate 67 02/13/23 21:41 Respiratory Rate 16 02/13/23 21:41 Blood Pressure 111/69 02/13/23 21:41 Pulse Oximetry 99 02/13/23 21:41 Oxygen Delivery Me thod Room Air 02/13/23 19:10 MDM - Weakness Medical Decision Making Presents with spinal stenosis and back pain. Pain medicine is not working and patient was admitted for pain control. Patient was given 1 mg Dilaudid and 10 mg Decadron in the ER and this seemed to help his pain pretty good. This with the patient was discussed with the hospitalist who decided against admitting him for pain control and suggested a Duragesic patch and increasing his [place]. This was discussed in detail with the patient and his and they are in agreement to this. Patient be discharged home and is to follow-up with his primary care doc and/or pain management doc as soon as possible to discuss further treatment. Differential Diagnosis Unlikely acute myocardial infarction, anemia, hypoglycemia, hypothyroidism, rhabdomyolysis, sepsis or dehydration Medical Records I reviewed the patient's medical records. Lab Data I reviewed the patient's lab results. 02/13/23 Unknown 02/13/23 Unknown Laboratory Results WBC 11.5 10^3/uL (4.0-10.0) H 02/13/23 Unknown RBC 4.28 10^6/uL (4.1-5.3) 02/13/23 Unknown Hgb 13.2 g/dL (11.7-16.6) 02/13/23 Unknown Hct 37.9 % (42.0-52.0) L 02/13/23 Unknown MCV 88.6 fl (80-94) 02/13/23 Unknown MCH 30.8 pg (28.0-34.0) 02/13/23 Unknown MCHC 34.8 g/dL (30.0-36.0) 02/13/23 Unknown RDW 13.7 % (12.1-15.1) 02/13/23 Unknown Plt Count 401 10^3/cmm (130-400) H 02/13/23 Unknown MPV 10.4 fL (7.4-10.4) 02/13/23 Unknown Neut % (Auto) 75.9 % 02/13/23 Unknown Lymph % (Auto) 15.0 % 02/13/23 Unknown [place] % (Auto) 6.3 % 02/13/23 Unknown Eos % (Auto) 0.9 % 02/13/23 Unknown Baso % (Auto) 0.4 % 02/13/23 Unknown Neut # (Auto) 8.73 10^3/uL (1.8-7.7) H 02/13/23 Unknown Lymph # (Auto) 1.7 10^3/uL (0.8-4.8) 02/13/23 Unknown [place] # (Auto) 0.7 10^3/uL (0.2-0.9) 02/13/23 Unknown Eos # (Auto) 0.1 10^3/uL (0.0-0.8) 02/13/23 Unknown Baso # (Auto) 0.1 10^3/uL (0.0-0.1) 02/13/23 Unknown Nucleated RBC % (auto) 0 % 02/13/23 Unknown Nucleated RBCs # 0.0 /100WBC 02/13/23 Unknown Sodium 134 mmol/L (136-145) L 02/13/23 Unknown Potassium 4.4 mmol/L (3.5-5.1) 02/13/23 Unknown Chloride 95 mmol/L (98-107) L 02/13/23 Unknown Carbon Dioxide 23 mmol/L (22-29) 02/13/23 Unknown Anion Gap 20.4 (5-19) H 02/13/23 Unknown BUN 30 mg/dL (8-23) H 02/13/23 Unknown Creatinine 1.2 mg/dL (0.7-1.2) 02/13/23 Unknown GFR Calculation Not Reportable 02/13/23 Unknown Glucose 197 mg/dL (65-115) H 02/13/23 Unknown Calculated Osmolality 290 mOsm/kg (285-295) 02/13/23 Unknown Lactic Acid 2.8 mmol/L (0.5-2.2) H 02/13/23 21:04 Calcium 9.7 mg/dL (8.5-10.5) 02/13/23 Unknown Total Bilirubin 0.9 mg/dL (0.15-1.2) 02/13/23 Unknown AST 38 U/L (0-40) 02/13/23 Unknown ALT 37 U/L (0-41) 02/13/23 Unknown Alkaline Phosphatase 155 U/L (40-130) H 02/13/23 Unknown C-Reactive Protein 4.4 mg/L (0.0-4.9) 02/13/23 Unknown Total Protein 6.6 g/dL (6.6-8.7) 02/13/23 Unknown Albumin 3.6 g/dL (3.5-5.2) 02/13/23 Unknown Globulin 3.0 g/dL (1.3-4.6) 02/13/23 Unknown Urine Color Yellow (Yellow) 02/13/23 20:46 Urine Appearance Clear (CLEAR) 02/13/23 20:46 Urine pH 8 (5-7) H 02/13/23 20:46 Ur Specific [place] 1.008 (1.005-1.030) 02/13/23 20:46 Urine Protein Neg (Negative) 02/13/23 20:46 Urine Glucose (UA) Norm (Normal) 02/13/23 20:46 Urine Ketones Negative (Negative) 02/13/23 20:46 Urine Blood Neg (Negative) 02/13/23 20:46 Urine Nitrate Negative (Negative) 02/13/23 20:46 Urine Bilirubin Neg (Negative) 02/13/23 20:46 Prot Sulfosalicylic Acd Negative (Negative) 02/13/23 20:46 Urine Urobilinogen Norm mg/dL (Negative) 02/13/23 20:46 Ur Leukocyte Esterase Negative (Negative) 02/13/23 20:46 Discharge Plan Discharge Patient Disposition: Home Clinical Impression: Lumbar radiculopathy Lumbar spinal stenosis Qualifiers: Neurogenic claudication status: unspecified Qualified Code(s): M48.061 - Spinal stenosis, lumbar region without neurogenic claudication Condition: Stable Prescriptions: New hydrocodone-acetaminophen 10-325 mg tablet 1 tab PO QID PRN (Reason: pain) Qty: 30 0RF fentanyl 25 mcg/hr patch 72 hour 1 patch transdermal Q72H Qty: 5 0RF Discontinued tramadol 50 mg tablet 50 mg PO DAILY hydrocodone-acetaminophen 5-325 mg tablet 1 tab PO BID PRN (Reason: pain) 7 Days Qty: 14 0RF Rx Instructions: Not to be taken with other opioids including oxycodone oxycodone-acetaminophen [Percocet] 7.5-325 mg tablet 1 tab PO Q6H PRN (Reason: pain) Qty: 10 0RF No Action naproxen sodium [Aleve] 220 mg tablet 220 mg PO BID PRN (Reason: Pain) pyridoxine (vitamin B6) 250 mg tablet 250 mg PO DAILY losartan 50 mg tablet 50 mg PO DAILY Flomax 0.4 mg capsule 0.4 mg PO DAILY Qty: 30 12RF prednisone 20 mg tablet 20 mg PO DAILY Qty: 15 0RF Rx Instructions: 60mg x 3 days 40mg x 2 days 20mg x 2 days lisinopril 40 mg tablet 40 mg PO DAILY 90 Days Qty: 90 3RF atorvastatin 40 mg tablet 40 mg PO DAILY Qty: 90 3RF Plavix 75 mg tablet 75 mg PO DAILY Qty: 90 3RF Hold Instructions: Resume on 12/25/22. furosemide 20 mg tablet 20 mg PO DAILY Qty: 90 3RF potassium chloride 8 mEq tablet extended release 8 meq PO DAILY Qty: 90 3RF ondansetron HCl 4 mg tablet 4 mg PO Q6H PRN (Reason: nausea and vomiting) Qty: 10 0RF prednisone 20 mg tablet 20 mg PO DAILY Qty: 10 0RF Discharge Orders: Discharge ED (Routine); Ordered 02/13/23 Ordered By: Trenton Rogers Referrals: Wayne Ruelas MD [Primary Care Provider] - 1 week Patient Instructions: Opioid Safety, Pain Management Activity Restrictions/Additional Instructions: Please follow this new routine pain management as directed. Please keep your appointment already scheduled with your pain management doc and/or follow-up with your primary care doc to discuss further evaluation and treatment of your chronic pain. Coding Level of Care Code ED Industrial Gas Production Operator for Ashlie Webber
[2023-02-13 21:09] LABS: Bilirubin Urine Neg (Negative); Blood Urine Neg (Negative); Glucose Urine UA Norm (Normal); Ketones Urine Negative (Negative); Leukocyte Esterase Urine Negative (Negative); Nitrate Urine Negative (Negative); Protein Urine Neg (Negative); Specific Gravity, Urine 1.008 (1.005-1.030); Sulfosalicylic Acid Urine Negative (Negative); Urine Appearance Clear (CLEAR); Urine Color Yellow (Yellow); Urobilinogen Urine Norm (Negative); pH Urine 8 (5-7)
[2023-02-13 21:28] LABS: Lactic Sepsis W/Reflex 2.8 mmol/L (0.5-2.2)
[2023-02-13 21:41] VITALS: BP 111/69; PULSE 67; RESP 16; O2SAT 99
[2023-02-13] MEDS: HYDROmorphone 1 mg/mL INJ 1 mL IVP (21:41)
[2023-02-13] MEDS: dexamethasone 10 mg/mL INJ IVP (21:41)
[2023-02-13 22:54] LABS: Reflex Lactate Order REFLEX LACTIC ORDERD
[2023-02-13] MEDS: fentaNYL 25 mcg Patch 1 PATCH TRANSDERMA (23:03)
[2023-02-13 23:29] VITALS: BP 111/69; PULSE 67; RESP 16; TEMP 36.7; O2SAT 99
== END 2023-02-13 23:29 | disposition home or self-care (01) ==
PROVIDERS: Emergency Medicine; Emergency Provider Emergency Medicine; PCP Family Medicine
DX: M48.061 Spinal stenosis, lumbar region without neurogenic claudication (principal); M54.16 Radiculopathy, lumbar region; Z79.02 Long term (current) use of antithrombotics/antiplatelets; E78.5 Hyperlipidemia, unspecified; I10 Essential (primary) hypertension; Z95.0 Presence of cardiac pacemaker
CPT/HCPCS: 36415; 80053; 81003; 83605; 85025; 86140; 93005; 96374; 96375; 99284; J1100; J1170

== ENCOUNTER 2023-02-23 16:00 | Emergency (ER) | payer MEDICARE, SELFPAY ==
[2023-02-23 16:07] VITALS: PULSE 93; RESP 20; TEMP 36.7; O2SAT 98; BMI 18.3
[2023-02-23 16:11] VITALS: BP 113/63
--- NOTE | 2023-02-23 16:44 | W.ED.BACK ---
HPI - Back Pain/Injury General: Chief Complaint: Back Pain/Injury Stated Complaint: Came from Pain Clinic, pain is worse now 05/26 Time Seen by Provider: 02/23/23 16:37 History of Present Illness: Patient presents to the ER with complaints of back pain. Patient came directly from the pain clinic where he had an injection that did not help. Patient thought it would cause immediate relief and it is because no relief. Patient did good on his Annabella that was prescribed last visit but did not like the fentanyl patch. Patient admitted to only using a Annabella 3 times a day. 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 Renal calculus, left Ureteral calculus, left Urolithiasis WPW (Mqhpw-[id number]-Avrhp syndrome) Surgical History H/O hernia repair H/O vasectomy History of PTCA Hx of cholecystectomy Family History Mother , IN HER 80'S CAD (coronary artery disease) Father , AT AGE 85 Cancer Lung disease Other Hypertension Social History Smoking and tobacco status: never smoked Alcohol intake: never Substance/Drug Use: never Marital status: / Current occupational status: retired Physical Exam Const: COMMON NORMALS: no acute distress, average body habitus, patient oriented x3, no limitations, healthy appearing, alert and well nourished HENMT: COMMON NORMALS: normocephalic, atraumatic, hearing grossly normal bilaterally, external ears normal, Normal external nose present and moist oral mucous membranes HEAD & SCALP: normocephalic and atraumatic NOSE: Normal external nose present EXTERNAL EAR: Yes external ears normal Neck/C-Spine: COMMON NORMALS: full ROM, no lymphadenopathy, supple, no meningeal signs, no JVD and Thyroid normal THYROID: Thyroid normal Chest: COMMONS NORMALS: normal inspection of the chest and normal palpation of entire chest wall Resp: COMMON NORMALS: normal respiratory effort, No retractions, No use of accessory muscles and clear to auscultation bilaterally AUSCULTATION: clear to auscultation bilaterally Cardio: COMMON NORMALS: no JVD, regular rate, regular rhythm, S1 normal heart sound present, S2 normal heart sound present, No gallops present (Cardio), No clicks present (Cardio), No murmurs present (Cardio) and No rub (Cardio) RATE: regular rate RHYTHM: regular rhythm HEART SOUNDS: S1 normal heart sound present and S2 normal heart sound present GI: COMMON NORMALS: Normal to inspection, nondistended, normoactive bowel sounds present, Soft to palpation, non-tender, No hepatosplenomegaly present and no masses PALPATION: Yes Soft to palpation and Yes No hepatosplenomegaly present Neuro: COMMON NORMALS: patient oriented x3 SENSORIUM/ORIENTATION: Yes alert MENINGEAL SIGNS: Yes no meningeal signs Course Vital Signs: Vital signs: Vital Signs Temperature 98.1 F 02/23/23 16:07 Pulse Rate 93 02/23/23 16:07 Respiratory Rate 20 H 02/23/23 16:07 Blood Pressure 113/63 02/23/23 16:11 Pulse Oximetry 98 02/23/23 16:07 Oxygen Delivery Me thod Room Air 02/23/23 16:07 MDM - Back Pain/Injury Medical Decision Making Patient presents to the ER with complaints of back pain. Patient came directly from the pain clinic where he underwent a procedure that did not help. Patient states the hydrocodone for last time worked good. But the fentanyl did not. We will refill the patient's hydrocodone and expressed that patient needs to start getting this from someplace other than the ER such as the pain clinic or his family practice doctor. Patient will be discharged home Differential Diagnosis Likely lumbar radiculopathy; Unlikely sciatica, strain of lumbar region, renal colic, pyelonephritis, thoracic back pain, AAA or discitis Medical Records I reviewed the patient's medical records. Labs I reviewed the patient's lab results. Discharge Plan Discharge Patient Disposition: Home Clinical Impression: Lumbar radiculopathy Condition: Stable Prescriptions: New hydrocodone-acetaminophen 10-325 mg tablet 1 tab PO Q6H PRN (Reason: pain) Qty: 30 0RF No Action naproxen sodium [Aleve] 220 mg tablet 220 mg PO BID PRN (Reason: Pain) pyridoxine (vitamin B6) 250 mg tablet 250 mg PO DAILY losartan 50 mg tablet 50 mg PO DAILY Flomax 0.4 mg capsule 0.4 mg PO DAILY Qty: 30 12RF prednisone 20 mg tablet 20 mg PO DAILY Qty: 15 0RF Rx Instructions: 60mg x 3 days 40mg x 2 days 20mg x 2 days lisinopril 40 mg tablet 40 mg PO DAILY 90 Days Qty: 90 3RF atorvastatin 40 mg tablet 40 mg PO DAILY Qty: 90 3RF Plavix 75 mg tablet 75 mg PO DAILY Qty: 90 3RF Hold Instructions: Resume on 12/25/22. furosemide 20 mg tablet 20 mg PO DAILY Qty: 90 3RF potassium chloride 8 mEq tablet extended release 8 meq PO DAILY Qty: 90 3RF ondansetron HCl 4 mg tablet 4 mg PO Q6H PRN (Reason: nausea and vomiting) Qty: 10 0RF hydrocodone-acetaminophen 10-325 mg tablet 1 tab PO QID PRN (Reason: pain) Qty: 30 0RF fentanyl 25 mcg/hr patch 72 hour 1 patch transdermal Q72H Qty: 5 0RF prednisone 20 mg tablet 20 mg PO DAILY Qty: 10 0RF Discharge Orders: Discharge ED (Routine); Ordered 02/23/23 Ordered By: Trenton Rogers Referrals: Wayne Ruelas MD [Primary Care Provider] - 1 week Patient Instructions: Opioid Safety, Pain Management Activity Restrictions/Additional Instructions: Please follow-up with your family doctor for refills of your chronic pain medicine. More please call the pain management doc and see what their suggestions are. Coding Level of Care Code ED Electronics Engineer for Ashlie Webber
[2023-02-23] MEDS: HYDROcodone-acetaminophen 10-325 mg Tablet 1 TAB PO (17:23)
== END 2023-02-23 17:50 | disposition home or self-care (01) ==
PROVIDERS: Emergency Provider Emergency Medicine; PCP Family Medicine
DX: M54.16 Radiculopathy, lumbar region (principal); M79.604 Pain in right leg; E78.5 Hyperlipidemia, unspecified; I10 Essential (primary) hypertension; Z95.0 Presence of cardiac pacemaker; Z79.899 Other long term (current) drug therapy; Z79.02 Long term (current) use of antithrombotics/antiplatelets
CPT/HCPCS: 64493; 64494; 64495; 99283; J3490

== ENCOUNTER 2023-02-26 11:31 | Inpatient (IN) | payer MEDICARE, SELFPAY ==
[2023-02-26] VITALS (11 sets, daily range): BP systolic 76–134; BP diastolic 40–84; PULSE 73–93; RESP 15–20; TEMP 36.6–37; O2SAT 93–100; BMI 17.1
--- NOTE | 2023-02-26 11:46 | XR_ITS ---
WS: [id number] Portable AP upright chest, 02/26/2023 Clinical Data: dyspnea/cough Comparison: None. Findings: No nodules, masses or effusions are seen. The heart is normal. The pulmonary vascularity is not increased. No pneumonia or pneumothorax is seen. There is a 2-lead pacemaker in good position wi th the generator overlying the left lateral chest. The aortic arch and descending thoracic aorta show tortuosity. There is osteoarthritis of the right shoulder joint. XR/XR chest 1V portable [id number] Impression: Atherosclerosis.
--- NOTE | 2023-02-26 11:55 | ED_ITS ---
HPI - Back Pain/Injury General: Chief Complaint: Back Pain/Injury Stated Complaint: sores, weightloss, pain Source: patient and family History of Present Illness: 87-year-old male directed to the emergency room by his primary care doctor he has been seen several times for back pain the last few weeks. There is a question of a lesion on his CT was a slightly elevated alk phos. He does have a progressively worsening pain but has no focal neurologic deficits he is also noticed significant weight loss. Note chest pain no shortness of breath. No abdominal pain he does have a history of kidney stones that were complicated by infection he previously had a stent but this has been removed he denies any dysuria at this time. Localizes the pain to his mid back to thrombothoracolumbar region. It is reproducible at times with palpation other times not. MD elicited complaint: back pain Pertinent past history: prior back pain Onset (ago): week(s) Timing: constant Severity: severe Quality: sharp Location: lumbar spine and thoracic spine Exacerbating factors: movement, sitting upright and walking Relieving factors: supine Context: turning/twisting Associated symptoms: Deny abdominal pain, arthralgias, chills, change in bowel habits, difficulty walking, dysuria, fatigue, fecal incontinence, fever(s), hematuria, myalgias, nausea, numbness, syncope, tingling/numbness/burning, urinary frequency, urinary urgency, vomiting or weakness Review of Systems Const: Denies: fever(s), chills or fatigue ENMT: Denies: throat pain, ear or mastoid pain, nasal discharge or nasal congestion Card: Denies: syncope Resp: Denies: dyspnea, productive cough or non-productive cough GI: Denies: abdominal pain, nausea, vomiting, fecal incontinence or change in bowel habits : Denies: dysuria, urinary urgency or hematuria Musc: Reports: back pain; Denies: extremity pain Skin/Breast: Denies: rash or pruritus Neuro: Denies: difficulty walking PFSH ED PFSH: Medical History Atypical chest pain BPH loc w urin obs/LUTS Chronic low back pain Edema, peripheral History of basal cell carcinoma History of pacemaker History of prostate cancer Hyperlipidemia Hypertension 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 Renal calculus, left Sacral decubitus ulcer, stage III Ureteral calculus, left Urolithiasis WPW (Oqzbm-Vuifgjvla-Ivekm syndrome) Surgical History H/O hernia repair H/O vasectomy History of PTCA History of rotator cuff surgery Hx of cholecystectomy Hx of tonsillectomy Family History Mother , IN HER 80'S CAD (coronary artery disease) Father , AT AGE 85 Cancer Lung disease Other Hypertension Social History Smoking and tobacco status: never smoked Alcohol intake: never Substance/Drug Use: never Marital status: / Current occupational status: retired Physical Exam Const: GENERAL APPEARANCE: cooperative ORIENTATION/CONSCIOUSNESS: Yes awake, Yes oriented to person, Yes oriented to place and Yes oriented to time HENMT: COMMON NORMALS: normocephalic, atraumatic and hearing grossly normal bilaterally HEAD & SCALP: normocephalic and atraumatic Resp: COMMON NORMALS: normal respiratory effort, No retractions, No use of accessory muscles and clear to auscultation bilaterally AUSCULTATION: clear to auscultation bilaterally Cardio: COMMON NORMALS: regular rate, regular rhythm and No murmurs present (Cardio) RATE: regular rate RHYTHM: regular rhythm GI: COMMON NORMALS: Soft to palpation and No hepatosplenomegaly present AUSCULTATION: Yes normoactive bowel sounds PALPATION: Yes Soft to palpation, No Tenderness to palpation present (GI), No Guarding due to palpation present (GI) and Yes No hepatosplenomegaly present Back/Pelvis: OTHER: Unable to consistently reproduce back pain at times with palpation along the spinous process paraspinal muscles at the thoracolumbar junction patient has some mild tenderness. He is able to more consistently reproduce it with flexion over the thoracic spine and rotation both left and right. Extremity: COMMON NORMALS: normal to inspection, capillary refill normal, no clubbing, cyanosis or edema, no calf tenderness and no pedal edema Neuro: SENSORIUM/ORIENTATION: Yes oriented to person, Yes oriented to place and Yes oriented to time Skin: COMMON NORMALS: no rashes or lesions noted GENERAL SKIN EXAM: no rashes or lesions noted OTHER: No vesicular rash. Course Vital Signs: Vital signs: Vital Signs Temperature 98.4 F 03/02/23 04:00 Pulse Rate 60 03/02/23 04:00 Respiratory Rate 18 03/02/23 04:00 Blood Pressure 101/51 03/02/23 04:00 Pulse Oximetry 98 03/02/23 04:00 Oxygen Delivery Me thod Room Air 03/01/23 20:00 MDM - Back Pain/Injury Medical Decision Making CT with contrast of thoracolumbar region suggestive of a osteomyelitis with progressive destruction. Consulted Dr. Barrientos he will see the patient in the inp atient side will admit he has been cultured and started on IV antibiotics. Medical Records I reviewed the patient's medical records. Labs I reviewed the patient's lab results. 03/02/23 04:50 03/02/23 04:50 Radiology Impressions Lumbar Spine CT 02/26/23 12:06 IMPRESSION: 1. Findings consistent with osteomyelitis T12-L1 progressed from previous examination 2. 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 Thoracic Spine CT 02/26/23 12:06 IMPRESSION: Worsening endplate osteolytic/destructive bone changes T12-L1 with accompanying soft tissue changes consistent with progressive osteomyelitis. Chest X-Ray 02/26/23 17:12 IMPRESSION: PICC line tip in the distal SVC. Laboratory Results WBC 9.8 10^3/uL (4.0-10.0) 02/26/23 12:10 RBC 3.83 10^6/uL (4.1-5.3) L 02/26/23 12:10 Hgb 11.9 g/dL (11.7-16.6) 02/26/23 12:10 Hct 35.6 % (42.0-52.0) L 02/26/23 12:10 MCV 93.0 fl (80-94) 02/26/23 12:10 MCH 31.1 pg (28.0-34.0) 02/26/23 12:10 MCHC 33.4 g/dL (30.0-36.0) 02/26/23 12:10 RDW 14.5 % (12.1-15.1) 02/26/23 12:10 Plt Count 305 10^3/cmm (130-400) 02/26/23 12:10 MPV 10.3 fL (7.4-10.4) 02/26/23 12:10 Neut % (Auto) 78.9 % 02/26/23 12:10 Lymph % (Auto) 11.7 % 02/26/23 12:10 [place] % (Auto) 6.6 % 02/26/23 12:10 Eos % (Auto) 1.5 % 02/26/23 12:10 Baso % (Auto) 0.6 % 02/26/23 12:10 Neut # (Auto) 7.75 10^3/uL (1.8-7.7) H 02/26/23 12:10 Lymph # (Auto) 1.2 10^3/uL (0.8-4.8) 02/26/23 12:10 [place] # (Auto) 0.7 10^3/uL (0.2-0.9) 02/26/23 12:10 Eos # (Auto) 0.2 10^3/uL (0.0-0.8) 02/26/23 12:10 Baso # (Auto) 0.1 10^3/uL (0.0-0.1) 02/26/23 12:10 Nucleated RBC % (auto) 0 % 02/26/23 12:10 Nucleated RBCs # 0.0 /100WBC 02/26/23 12:10 Sodium 131 mmol/L (136-145) L 02/26/23 12:10 Potassium 4.7 mmol/L (3.5-5.1) 02/26/23 12:10 Chloride 94 mmol/L (98-107) L 02/26/23 12:10 Carbon Dioxide 26 mmol/L (22-29) 02/26/23 12:10 Anion Gap 15.7 (5-19) 02/26/23 12:10 BUN 43 mg/dL (8-23) H 02/26/23 12:10 Creatinine 1.4 mg/dL (0.7-1.2) H 02/26/23 12:10 GFR Calculation Not Reportable 02/26/23 12:10 Glucose 167 mg/dL (65-115) H 02/26/23 12:10 Calculated Osmolality 287 mOsm/kg (285-295) 02/26/23 12:10 Calcium 8.9 mg/dL (8.5-10.5) 02/26/23 12:10 Total Bilirubin 0.8 mg/dL (0.15-1.2) 02/26/23 12:10 AST 25 U/L (0-40) 02/26/23 12:10 ALT 25 U/L (0-41) 02/26/23 12:10 Alkaline Phosphatase 123 U/L (40-130) 02/26/23 12:10 Creatine Kinase 51 U/L (39-308) 02/26/23 12:10 C-Reactive Protein 9.7 mg/L (0.0-4.9) H 02/26/23 12:10 Total Protein 5.9 g/dL (6.6-8.7) L 02/26/23 12:10 Albumin 3.1 g/dL (3.5-5.2) L 02/26/23 12:10 Globulin 2.8 g/dL (1.3-4.6) 02/26/23 12:10 Lipase 12 U/L (13-60) L 02/26/23 12:10 Urine Color Yellow (Yellow) 02/26/23 13:33 Urine Appearance Clear (CLEAR) 02/26/23 13:33 Urine pH 7 (5-7) 02/26/23 13:33 Ur Specific [place] 1.005 (1.005-1.030) 02/26/23 13:33 Urine Protein Neg (Negative) 02/26/23 13:33 Urine Glucose (UA) Norm (Normal) 02/26/23 13:33 Urine Ketones Negative (Negative) 02/26/23 13:33 Urine Blood Neg (Negative) 02/26/23 13:33 Urine Nitrate Negative (Negative) 02/26/23 13:33 Urine Bilirubin Neg (Negative) 02/26/23 13:33 Urine Urobilinogen Norm mg/dL (Negative) 02/26/23 13:33 Ur Leukocyte Esterase Negative (Negative) 02/26/23 13:33 Discharge Plan Discharge Patient Disposition: Admitted As Inpatient Admit Provider: Marquez Metcalf Clinical Impression: Osteomyelitis of spine, Decubitus ulcer of sacral region, unstageable Condition: Stable Coding Level of Care Code ED Cost Accounting Analyst for [facility] [place]
--- NOTE | 2023-02-26 12:06 | CTR_ITS ---
PROCEDURE INFORMATION: Exam: CT Thoracic Spine Without and With Contrast Exam date and time: 02/26/2023 12:46 PM Age: 87 years old Clinical indication: Condition or disease; Other: T12-l1 progressive lesion; Prior surgery; Surgery date: 1-6 months; Surgery type: Back surgery 12/2022 TECHNIQUE: Imaging protocol: Computed tomography of the thoracic spine without and with contrast. Radiation optimization: All CT scans at this facility use at least one of these dose optimization techniques: automated exposure control; mA and/or kV adjustment per patient size (includes targeted exams where dose is matched to clinical indication); or iterative reconstruction. Contrast material: OMNI 350; Contrast volume: 100 ml; Contrast route: INTRAVENOUS (IV); REPORTING DATA: Count of CT and Cardiac NM exams in prior 12 months: This patient has received 4 known CTs and 0 known cardiac nuclear medicine studies in the 12 months prior to the current study. COMPARISON: CT kidney stone [id number] 01/26/2023 4:47 PM RADIATION DOSE METRICS: Total DLP (mGy-cm): 1355.41 FINDINGS: Bones/joints: There is continued progressive changes at T12-L1 with worsening destructive and osteolytic endplate changes with accompanying ill-defined paraspinal soft tissue swelling consistent with osteomyelitis and discitis. Anatomic alignment remains preserved. There are multilevel anterolateral degenerative endplate osteophytes throughout the remainder of the thoracic spine. There are no compression fractures or spondylolisthesis. Disc heights remain preserved. Soft tissues: See Bones/joints finding. CT/CT thoracic spine wo/w [id number] IMPRESSION: Worsening endplate osteolytic/destructive bone changes T12-L1 with accompanying soft tissue changes consistent with progressive osteomyelitis.
--- NOTE | 2023-02-26 12:06 | CTR_ITS ---
PROCEDURE INFORMATION: Exam: CT Lumbar Spine Without and With Contrast Exam date and time: 02/26/2023 12:46 PM Age: 87 years old Clinical indication: Condition or disease; Other: T12-l1 progressive lesion; Prior surgery; Surgery date: 1-6 months; Surgery type: Back surgery 12/2022; Additional info: T12-l1 compression FX TECHNIQUE: Imaging protocol: Computed tomography of the lumbar spine without and with contrast. Radiation optimization: All CT scans at this facility use at least one of these dose optimization techniques: automated exposure control; mA and/or kV adjustment per patient size (includes targeted exams where dose is matched to clinical indication); or iterative reconstruction. Contrast material: OMNI 350; Contrast volume: 100 ml; Contrast route: INTRAVENOUS (IV); REPORTING DATA: Count of CT and Cardiac NM exams in prior 12 months: This patient has received 4 known CTs and 0 known cardiac nuclear medicine studies in the 12 months prior to the current study. COMPARISON: CT lumbar spine recon [id number] 12/28/2022 3:18 AM RADIATION DOSE METRICS: Total DLP (mGy-cm): 1355.41 FINDINGS: Bones/joints: There is again demonstrated progression of the destructive/osteolytic bone changes involving the endplates at T12-L1 with some extension into the vertebral bodies and accompanying indistinct paraspinal soft tissue swelling consistent with osteomyelitis. Alignment in the sagittal coronal planes is maintained. No subluxation or spondylolisthesis detected. There is chronic grade 1 degenerative spondylolisthesis L4-L5 with secondary degenerative endplate changes and accompanying facet arthrosis resulting in moderate stenosis of the central canal and neural foramina bilaterally unchanged. There is facet arthrosis at L5-S1 contributing to moderate narrowing of the neural foramina bilaterally. Soft tissues: See Bones/joints finding. CT/CT lumbar spine wo/w con [id number] IMPRESSION: 1. Findings consistent with osteomyelitis T12-L1 progressed from previous examination 2. 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
[2023-02-26] MEDS: sodium chloride 0.9% 1,000 ML 999 ML IV (12:22)
[2023-02-26 12:30] LABS: Basophils # 0.1 10^3/uL (0.0-0.1); Basophils % 0.6 %; Eosinophils # 0.2 10^3/uL (0.0-0.8); Eosinophils % 1.5 %; Hematocrit 35.6 % (42.0-52.0); Hemoglobin 11.9 g/dL (11.7-16.6); Lymphocytes # 1.2 10^3/uL (0.8-4.8); Lymphocytes % 11.7 %; Mean Corpuscular HGB Conc 33.4 g/dL (30.0-36.0); Mean Corpuscular Hemoglobin 31.1 pg (28.0-34.0); Mean Platelet Volume 10.3 fL (7.4-10.4); Monocytes # 0.7 10^3/uL (0.2-0.9); Monocytes % 6.6 %; Neutrophils # 7.75 10^3/uL (1.8-7.7); Neutrophils % 78.9 %; Nucleated Red Blood Cells % 0 %; Platelet Count 305 10^3/cmm (130-400); Red Blood Count 3.83 10^6/uL (4.1-5.3); Red Cell Distribution Width 14.5 % (12.1-15.1); White Blood Count 9.8 10^3/uL (4.0-10.0)
[2023-02-26] MEDS: iohexol 350 mg/mL 500 mL Btl (per mL) IV (12:48)
[2023-02-26 12:58] LABS: Alanine Aminotransferase 25 U/L (0-41); Albumin Level 3.1 g/dL (3.5-5.2); Alkaline Phosphatase 123 U/L (40-130); Anion Gap 15.7 (5-19); Aspartate Amino Transferase 25 U/L (0-40); Blood Urea Nitrogen 43 mg/dL (8-23); C Reactive Protein 9.7 mg/L (0.0-4.9); Calcium 8.9 mg/dL (8.5-10.5); Carbon Dioxide 26 mmol/L (22-29); Chloride 94 mmol/L (98-107); Creatine Phosphokinase 51 U/L (39-308); Globulin 2.8 g/dL (1.3-4.6); Glucose 167 mg/dL (65-115); Lipase 12 U/L (13-60); Osmolality Calculated 287 mOsm/kg (285-295); Potassium 4.7 mmol/L (3.5-5.1); Sodium 131 mmol/L (136-145); Total Bilirubin 0.8 mg/dL (0.15-1.2); Total Protein 5.9 g/dL (6.6-8.7)
[2023-02-26 13:42] LABS: Add Urine Microscopic? NO; Charge for UA Resulting for Rev
[2023-02-26 13:53] LABS: Bilirubin Urine Neg (Negative); Blood Urine Neg (Negative); Glucose Urine UA Norm (Normal); Ketones Urine Negative (Negative); Leukocyte Esterase Urine Negative (Negative); Nitrate Urine Negative (Negative); Protein Urine Neg (Negative); Specific Gravity, Urine 1.005 (1.005-1.030); Urine Appearance Clear (CLEAR); Urine Color Yellow (Yellow); Urobilinogen Urine Norm (Negative); pH Urine 7 (5-7)
[2023-02-26] MEDS: vancomycin 1,000 MG in sodium chloride 0.9% 250 ML 250 MG IV (14:52)
[2023-02-26] MEDS: morphine 4 mg/mL SDV 1 mL IVP ×2 (15:37→18:54)
--- NOTE | 2023-02-26 15:45 | PC.NURSE ---
REDNESS NOTED TO PT IV SITE. PHYSICIAN NOTIFIED. PHYSICIAN ASSESSED AREA. NO INFILTRATION OR SKIN TEMPERATURE CHANGE NOTED. PHYSICIAN INSTRUCTED TO DECREASE VANCOMYCIN FLOW RATE TO 125ML/HR
--- NOTE | 2023-02-26 16:15 | PM.HP ---
Providers/Chief Complaint Primary Care Provider: Wayne Ruelas MD Chief Complaint: sores, weightloss, pain History of Present Illness Andria Thacker is a 87 year old male has been referred to a [place] [facility] via PCP, for worsening of generalized weakness and fatigue, presented today from [facility] clinic for worsening of symptoms. In the ER he has been diagnosed with vertebral osteomyelitis, he does have pressure ulcer on admission he has been given broad-spectrum antibiotics in the ER, Dr. Barrientos is consulted. Dr. Ochoa requested PICC line placement patient is not septic, afebrile Patient stating that he has noticed sandpaperlike rash a year ago for which he has been using Vaseline this has not been an issue until lately when he has started using a recliner because of worsening of back pain, recently had nerve ablation by Dr. Chicas that was on Thursday, patient has not noticed any nausea, vomiting, patient is not endorsing urinary incontinence, instead he retains urine because of back pain because he takes 15 minutes to go to the bathroom, lives with a brother who has autism, daughter checks on him on daily basis, daughter stating that he is DNR/DNI Patient had prostate cancer about 20 years ago Review of Systems Const: Denies: fever(s) Eyes: Denies: change in vision ENMT: Denies: odynophagia Card: Denies: chest pain Resp: Denies: dyspnea GI: Denies: abdominal pain : Denies: flank pain Musc: Reports: back pain Skin/Breast: Reports: rash Medications/Allergies Home Medications Medication Instructions Recorded Confirmed Last Taken Type naproxen sodium 220 mg tablet 220 mg PO BID PRN Pain 10/05/19 02/26/23 02/25/23 History (Aleve) pyridoxine (vitamin B6) 250 mg 250 mg PO DAILY 10/05/19 02/26/23 02/25/23 History tablet lisinopril 40 mg tablet 40 mg PO DAILY 90 days #90 tabs 04/24/22 02/26/23 02/25/23 Rx atorvastatin 40 mg tablet 40 mg PO DAILY #90 tabs 07/21/22 02/26/23 02/25/23 Rx clopidogrel 75 mg tablet (Plavix) 75 mg PO DAILY #90 tabs 07/21/22 02/26/23 02/25/23 Rx furosemide 20 mg tablet 20 mg PO DAILY #90 tabs 07/21/22 02/26/23 02/25/23 Rx potassium chloride 8 mEq 8 meq PO DAILY #90 tabs 07/21/22 02/26/23 02/25/23 Rx tablet,extended release losartan 50 mg tablet 50 mg PO DAILY 11/11/22 02/26/23 02/25/23 History tamsulosin 0.4 mg capsule (Flomax) 0.4 mg PO DAILY #30 caps 11/11/22 02/26/23 12/23/22 Rx ondansetron HCl 4 mg tablet 4 mg PO Q6H PRN nausea and 01/26/23 02/26/23 Unknown Rx vomiting #10 tabs fentanyl 25 mcg/hr transdermal 1 patch transdermal Q72H #5 ea 02/13/23 02/26/23 Unknown Rx patch hydrocodone 10 mg-acetaminophen 1 tab PO Q6H PRN pain #30 tabs 02/23/23 02/26/23 02/25/23 Rx 325 mg tablet Allergies Allergy/AdvReac Type Severity Reaction Status Date / Time allopurinol Allergy Unknown Unknown Verified 02/26/23 15:32 barium sulfate Allergy Unknown Unknown Verified 02/26/23 15:32 beclomethasone Allergy Unknown Unknown Verified 02/26/23 15:32 [From Vancenase] cephalexin [From Keflex] Allergy Unknown unknown Verified 02/26/23 15:32 gatifloxacin [From Tequin] Allergy Unknown unknown Verified 02/26/23 15:32 quinidine Allergy Unknown unknown Verified 02/26/23 15:32 PFSH Acute PFSH: Medical History Atypical chest pain BPH loc w urin obs/LUTS Chronic low back pain Edema, peripheral History of pacemaker Hyperlipidemia Hypertension 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 Renal calculus, left Ureteral calculus, left Urolithiasis WPW (Maogk-Wtgijgxys-Fggtf syndrome) Surgical History H/O hernia repair H/O vasectomy History of PTCA Hx of cholecystectomy Family History Mother , IN HER 80'S CAD (coronary artery disease) Father , AT AGE 85 Cancer Lung disease Other Hypertension Social History Smoking and tobacco status: never smoked Alcohol intake: never Substance/Drug Use: never Marital status: / Current occupational status: retired Vitals/I&O/Wt Last Vital Signs Temp 97.8 F 02/26/23 11:43 Pulse 75 02/26/23 14:00 Resp 16 02/26/23 15:37 BP 115/78 02/26/23 14:00 Pulse Ox 98 02/26/23 15:37 O2 Del Method Room Air 02/26/23 11:43 02/26/23 02/26/23 02/26/23 06:59 14:59 22:59 Intake Total 1000 / 1000 225 / 1225 Balance 1000 / 1000 225 / 1225 Weight last 48 hrs Weight 58.967 kg Physical Exam Narrative: Cachectic malnourished male Awake and alert Nonfocal neuro exam Communicative Abdomen soft Muscle mass loss S1, S2 Signs of dehydration Ketotic breath Currently on room air No signs of edema Daughter at the bedside Stage II ulcer buttocks Data 02/26/23 12:10 02/26/23 12:10 Micro: Microbiology 02/26/23 12:30 Blood Culture - Preliminary Blood SPECIMEN COLLECTED 02/26/23 12:25 Blood Culture - Preliminary Blood SPECIMEN COLLECTED A&P Assessment and plan (1) Lumbar facet arthropathy: (2) WPW (Jeynh-Eqeytkmsh-Krbxr syndrome): (3) Pacemaker: (4) Osteomyelitis: (5) Urolithiasis: (6) Ureteral calculus, left: (7) BPH loc w urin obs/LUTS: Plan T12-L1 osteolytic lesion osteomyelitis Most likely stemming from sacral ulcer Patient has history of kidney stones We will request blood culture and urinalysis to rule out endocarditis Request echo Requested blood cultures Start broad-spectrum antibiotics Spine surgeon consulted 4 mm left pulmonary nodule 4 mm right renal calculi chronic perinephric stranding Large left inguinal hernia No active signs of obstruction Left double pig tail ureteral stent in place [place] creatinine 1.4 likely prerenal DVT prophylaxis heparin Monitor for signs of cauda equina Start Decadron Monitor for hyperglycemia and hypertension Full code GI soft diet Patient has already been accepted at [place] [facility], will request drug abuse social worker for further assessment Place Fraga catheter because of sacral area ulcer Attestations Medical Necessity Statement*: More than 2 midnights anticipated Diagnoses Lumbar facet arthropathy M47.816 WPW (Emdth-Ichxlfutj-Ouknf syndrome) I45.6 Pacemaker Z95.0 Osteomyelitis M86.9 Urolithiasis N20.9 Ureteral calculus, left N20.1 BPH loc w urin obs/LUTS N40.1
--- NOTE | 2023-02-26 16:30 | PC.NURSE ---
REDNESS AT IV SITE RESOLVED
[2023-02-26] MEDS: morphine 4 mg/mL SDV 1 mL 2 MG IVP (16:37)
[2023-02-26] MEDS: diphenhydrAMINE 50 mg/mL SDV 1mL 12.5 MG IVP (16:37)
--- NOTE | 2023-02-26 17:09 | USCV_ITS ---
Brendan Thacker Age: 87 Gender: M : 1935 Exam Date: 02/26/2023 18:35 Ordering Phys: Marquez Metcalf MD Technologist: ANA PAULA [place] [facility] [place]: spinal osteomyelitis. History of pacemaker, beginning 1993. BP: 130 / 84 HR: Rhythm: paced, sometimes no capturing, strings of Afib Technical Quality: Fair MEASUREMENTS (Male / Female) Normal Values 2D ECHO LV Diastolic Diameter PLAX 2.7 cm 4.2 - 5.9 / 3.9 - 5.3 cm LV Systolic Diameter PLAX 1.9 cm IVS Diastolic Thickness 1.9 cm 0.6 - 1.0 / 0.6 - 0.9 cm IVS Systolic Thickness 1.8 cm LVPW Diastolic Thickness 1.4 cm 0.6 - 1.0 / 0.6 - 0.9 cm LVPW Systolic Thickness 1.5 cm LVOT Diameter 2.2 cm LV Ejection Fraction 2D Teich 60.8 % LV Ejection Fraction MOD 2C 55.8 % LV Ejection Fraction 2C AL 55.7 % LA Diameter 3.2 cm LA Width 3.9 cm LA Height 4.5 cm RA Width 2.6 cm RA Height 3.1 cm Aorta at Sinotubular Diameter 4.0 cm IVC Diameter 1.5 cm M-MODE Aortic Annulus Diameter 4.0 cm LA Ao Ratio MM 0.8 MV E Point Septal Separation 0.7 cm DOPPLER AV Peak Velocity 136.0 cm/s LVOT Peak Velocity 87.0 cm/s AV Area Cont Eq vti 2.6 cm squared AV Area Cont Eq pk 2.4 cm squared MV Area PHT 4.2 cm squared Mitral E to A Ratio 0.6 MV E' Velocity 40.5 cm/s Mitral E to MV E' Ratio 12.3 Mitral E to LV E' Lateral Ratio 9.3 Mitral E to LV E' Septal Ratio 18.2 TR Peak Velocity 201.0 cm/s TR Peak Gradient 16.2 mmHg TV Peak E Velocity 46.0 cm/s Right Atrial Pressure 5.0 mmHg Pulmonary Artery Systolic Pressu 21.2 mmHg PV Peak Velocity 73.0 cm/s RV Acceleration Time 0.1 s RV Ejection Time 0.3 s RV AcT/ET 0.3 FINDINGS Left Ventricle Normal left ventricular cavity size. Normal left ventricular systolic function. Left ventricular ejection fraction is estimated at 55 %. No diagnostic regional wall motion abnormalities. Abnormal septal motion consistent with pacemaker. Abnormal diastolic function. Right Ventricle Normal right ventricular size and systolic function. Right ventricular systolic pressure 24 mmHg. Pacemaker wire visualized in the right ventricle. Right Atrium Normal right atrial size. Left Atrium Mildly increased left atrial size. Mitral Valve Moderate mitral annular calcification. Moderately thickened mitral valve. No mitral valve stenosis. No significant mitral valve regurgitation. Aortic Valve Aortic valve not well visualized. No aortic valve stenosis. No aortic valve regurgitation. Tricuspid Valve Structurally normal tricuspid valve. Pulmonic Valve Pulmonic valve not well visualized. No pulmonary valve stenosis. Pericardium No pericardial effusion. Aorta Dilated aortic root measured at 40 mm and ascending aorta measured at 37 mm. IVC Inferior vena cava not visualized. CONCLUSIONS 1. This is a technically difficult study with off axis images difficult windows. 2. Normal left ventricular cavity size and systolic function. Left ventricular ejection fraction is estimated at 55 %. No diagnostic regional wall motion abnormalities. Abnormal septal motion consistent with pacemaker. Abnormal diastolic function. 3. No prior similar studies to compare. Marisela Rader MD (Electronically Signed) Final Date: 06 March 2023 11:24 S
--- NOTE | 2023-02-26 17:12 | XRR_ITS ---
PROCEDURE INFORMATION: Exam: XR Chest Exam date and time: 02/26/2023 6:18 PM Age: 87 years old Clinical indication: Device placement; Picc; Prior surgery; Surgery date: 6+ months; Surgery type: Pacer; Additional info: Post picc, consuelo placing on ms room 256. Will call when ready TECHNIQUE: Imaging protocol: Radiologic exam of the chest. Views: 1 view. COMPARISON: CR XR chest 1V portable [id number] 02/26/2023 11:58 AM FINDINGS: Tubes, catheters and devices: Right PICC line placement with tip in the distal SVC. Intact dual lead left subclavian pacemaker. Lungs: Over penetration of the lungs which are suboptimally visualized. Pleural spaces: Unremarkable. No pleural effusion. No pneumothorax. Heart/Mediastinum: Unremarkable. No cardiomegaly. Bones/joints: Degenerative shoulders with left rotator cuff arthropathy. XR/XR chest 1V portable [id number] IMPRESSION: PICC line tip in the distal SVC.
--- NOTE | 2023-02-26 17:24 | PC.PHAR ---
Patient: Floor: Age: 87 yo Serum creatinine: 1.4 mg/dL Height: 72.8 Inches Weight (kg): 58.9 IBW (kg): 79.44 Dosing wt(kg): 58.9 Estimated Creatinine clearance (ml/min): 31.6 CRCL method: Cockcroft and Gault using ibw(default). Drug selected: Vancomycin Loading dose (mg): Vd (liters): 41.2 (factor used: 0.7 L/kg) William (hr-1): 0.031 Half life (hrs): 22.36 CLvanco=?? 1.277 L/hr Recommended dose: 750 mg Interval: 24 hrs Infusion time (hrs): 1 Predicted peak (mcg/mL): 34.2 Predicted trough (mcg/mL): 16.76 Total body weight is being used for vancomycin dosing. Recommendations: Give Vancomycin 750 mg q 24 hrs with an expected Cpeak of 34.2 mcg/ml and an expected Ctrough of 16.76 mcg/ml AUC 0-24 /JEFFREY Data: JEFFREY 0.5 mcg/mL:?? AUC/JEFFREY:? 1174.6 JEFFREY 1.0 mcg/mL:?? AUC/JEFFREY:? 587.3 --------- JEFFREY 1.5 mcg/mL:?? AUC/JEFFREY:? 391.5 JEFFREY 2.0 mcg/mL:?? AUC/JEFFREY:? 293.7 Renal dosing of other antibiotics (review renal dosing of other medications and list guidelines here): Thank you for the consult, will continue to follow. Signature: Eugene Corcoran PharmD
--- NOTE | 2023-02-26 18:00 | PC.NURSE ---
Double lumen PICC placed to right basilic vein without difficulty. Informed consent obtained from patient prior to procedure. Risks and benefits discussed. Right basilic vein assessed, 4.5 mm, appeared straight, and best choice for placement. Using sterile technique and MST, basilic vein accessed x 1 stick. Mid-arm circumference measured 10 cm from right AC 20 cm. Trimmed cath 41 cm with 1 cm external length noted. CXR shows tip in distal SVC, in good position for use per radiologist. Line secured with stat lock. Insertion site covered with Biopatch and TSM. Report given to bedside nurseNica.
[2023-02-26] MEDS: fentaNYL 25 mcg Patch 1 PATCH TRANSDERMA (18:55)
[2023-02-26] MEDS: piperacillin-tazobactam 3.375 GM in sodium chloride 0.9% (plus) 50 ML IV (18:56)
[2023-02-26] MEDS: ondansetron 2 mg/ML SDV 2 mL 4 MG IVP (18:56)
[2023-02-26] MEDS: heparin 5,000 unit/mL INJ 1 mL 5000 UNIT SUBCUT (21:07)
[2023-02-27] VITALS (8 sets, daily range): BP systolic 87–119; BP diastolic 50–60; PULSE 60–88; RESP 15–18; TEMP 36.4–36.8; O2SAT 91–97
[2023-02-27] MEDS: sodium chloride 0.9% 1,000 ML 75 ML IV ×2 (00:44→18:31)
[2023-02-27] MEDS: piperacillin-tazobactam 3.375 GM in sodium chloride 0.9% (plus) 50 ML IV ×3 (00:45→16:59)
[2023-02-27 02:54] LABS: Glucose Point of Care 165 mg/dL (70-110)
[2023-02-27] MEDS: midodrine 5 mg TABLET 10 MG PO ×2 (03:17→10:14)
[2023-02-27] MEDS: vancomycin 750 MG in sodium chloride 0.9% 250 ML 250 MG IV (04:58)
[2023-02-27 05:23] LABS: Basophils # 0.1 10^3/uL (0.0-0.1); Basophils % 0.7 %; Eosinophils # 0.1 10^3/uL (0.0-0.8); Hemoglobin 11.3 g/dL (11.7-16.6); Lymphocytes # 0.8 10^3/uL (0.8-4.8); Mean Corpuscular HGB Conc 32.3 g/dL (30.0-36.0); Mean Corpuscular Hemoglobin 30.4 pg (28.0-34.0); Mean Corpuscular Volume 94.1 fl (80-94); Mean Platelet Volume 9.9 fL (7.4-10.4); Monocytes # 0.6 10^3/uL (0.2-0.9); Monocytes % 5.6 %; Neutrophils # 8.82 10^3/uL (1.8-7.7); Neutrophils % 84.2 %; Nucleated Red Blood Cells % 0 %; Platelet Count 283 10^3/cmm (130-400); Red Blood Count 3.72 10^6/uL (4.1-5.3); Red Cell Distribution Width 14.6 % (12.1-15.1); White Blood Count 10.5 10^3/uL (4.0-10.0)
[2023-02-27 05:42] LABS: Anion Gap 14.5 (5-19); Blood Urea Nitrogen 34 mg/dL (8-23); Calcium 8.7 mg/dL (8.5-10.5); Carbon Dioxide 24 mmol/L (22-29); Chloride 100 mmol/L (98-107); Glucose 133 mg/dL (65-115); Magnesium 1.7 mg/dL (1.7-2.3); Osmolality Calculated 288 mOsm/kg (285-295); Potassium 4.5 mmol/L (3.5-5.1); Sodium 134 mmol/L (136-145)
--- NOTE | 2023-02-27 07:15 | PM.CONSULT ---
Providers/Reason For Consult Consulting Physician/Specialty*: hospitalist Reason for Consult*: osteomylitis of spine Attending Physician: Marquez Metcalf MD Primary Care Provider: Wayne Ruelas MD History of Present Illness History of Present Illness Brendan Thacker is a 87 year old male generalized weakness and fatigue, presented today from [facility] for worsening of symptoms.? In the ER he has been diagnosed with vertebral osteomyelitis, he does have pressure ulcer on admission he has been given broad-spectrum antibiotics in the ER Review of Systems Const: Denies: fever(s) Eyes: Denies: change in vision ENMT: Denies: odynophagia Card: Denies: chest pain Resp: Denies: dyspnea GI: Denies: abdominal pain : Denies: flank pain Musc: Reports: back pain Skin/Breast: Reports: rash Medications/Allergies Home Medications Medication Instructions Recorded Confirmed Last Taken Type naproxen sodium 220 mg tablet 220 mg PO BID PRN Pain 10/05/19 02/26/23 02/25/23 History (Aleve) pyridoxine (vitamin B6) 250 mg 250 mg PO DAILY 10/05/19 02/26/23 02/25/23 History tablet lisinopril 40 mg tablet 40 mg PO DAILY 90 days #90 tabs 04/24/22 02/26/23 02/25/23 Rx atorvastatin 40 mg tablet 40 mg PO DAILY #90 tabs 07/21/22 02/26/23 02/25/23 Rx clopidogrel 75 mg tablet (Plavix) 75 mg PO DAILY #90 tabs 07/21/22 02/26/23 02/25/23 Rx furosemide 20 mg tablet 20 mg PO DAILY #90 tabs 07/21/22 02/26/23 02/25/23 Rx potassium chloride 8 mEq 8 meq PO DAILY #90 tabs 07/21/22 02/26/23 02/25/23 Rx tablet,extended release losartan 50 mg tablet 50 mg PO DAILY 11/11/22 02/26/23 02/25/23 History tamsulosin 0.4 mg capsule (Flomax) 0.4 mg PO DAILY #30 caps 11/11/22 02/26/23 12/23/22 Rx ondansetron HCl 4 mg tablet 4 mg PO Q6H PRN nausea and 01/26/23 02/26/23 Unknown Rx vomiting #10 tabs fentanyl 25 mcg/hr transdermal 1 patch transdermal Q72H #5 ea 02/13/23 02/26/23 Unknown Rx patch hydrocodone 10 mg-acetaminophen 1 tab PO Q6H PRN pain #30 tabs 02/23/23 02/26/23 02/25/23 Rx 325 mg tablet Allergies Allergy/AdvReac Type Severity Reaction Status Date / Time allopurinol Allergy Unknown Unknown Verified 02/26/23 15:32 barium sulfate Allergy Unknown Unknown Verified 02/26/23 15:32 beclomethasone Allergy Unknown Unknown Verified 02/26/23 15:32 [From Vancenase] cephalexin [From Keflex] Allergy Unknown unknown Verified 02/26/23 15:32 gatifloxacin [From Tequin] Allergy Unknown unknown Verified 02/26/23 15:32 quinidine Allergy Unknown unknown Verified 02/26/23 15:32 Current Medications Generic Name Dose Route Start Last Admin Trade Name Freq PRN Reason Stop Dose Admin Fentanyl 1 patch 02/26/23 18:00 02/26/23 18:55 Fentanyl 25 Mcg Patch TRANSDERMA 1 patch Q72H MIKHAIL Administration Heparin Sodium (Porcine) 5,000 unit 02/26/23 20:00 02/26/23 21:07 Heparin 5,000 Unit/Ml Inj 1 Ml SUBCUT 5,000 unit Q12H MIKHAIL Administration Piperacillin Sod/Tazobactam 50 mls @ 12.5 mls/hr 02/26/23 17:30 02/27/23 04:23 Sod 3.375 gm/ Sodium Chloride IV Infused Q8H MIKHAIL Infusion Protocol As Directed Vancomycin HCl 750 mg/ Sodium 250 mls @ 250 mls/hr 02/27/23 05:00 02/27/23 06:01 Chloride IV Infused Q24H MIKHAIL Infusion Protocol As Directed Sodium Chloride 1,000 mls @ 75 mls/hr 02/27/23 00:45 02/27/23 00:44 Sodium Chloride 0.9% IV 75 mls/hr .[id number] MIKHAIL Administration Midodrine 10 mg 02/27/23 03:05 02/27/23 03:17 Midodrine 5 Mg Tablet PO 10 mg TID MIKHAIL Administration PFSH Acute PFSH: Medical History Atypical chest pain BPH loc w urin obs/LUTS Chronic low back pain Edema, peripheral History of pacemaker Hyperlipidemia Hypertension 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 Renal calculus, left Ureteral calculus, left Urolithiasis WPW (Upcih-Diqzizycn-Hxrhr syndrome) Surgical History H/O hernia repair H/O vasectomy History of PTCA Hx of cholecystectomy Family History Mother , IN HER 80'S CAD (coronary artery disease) Father , AT AGE 85 Cancer Lung disease Other Hypertension Social History Smoking and tobacco status: never smoked Alcohol intake: never Substance/Drug Use: never Marital status: / Current occupational status: retired Vitals/I&O/Wt Last Vital Signs Temp 98.3 F 02/27/23 05:20 Pulse 66 02/27/23 05:20 Resp 18 02/27/23 05:20 BP 119/59 02/27/23 05:20 Pulse Ox 96 02/27/23 05:20 O2 Del Method Room Air 02/26/23 20:00 02/26/23 02/27/23 02/27/23 22:59 06:59 14:59 Intake Total 300 / 1300 300 / 1600 Output Total 850 / 850 Balance 300 / 1300 -550 / 750 Weight last 48 hrs Weight 130 lb Physical Exam Narrative: Patient is resting comfortably in bed. CT scan reveals T12-L1 likely osteomyelitis. Do not see any evidence of any epidural abscess. Patient also subsequently has a L4-5 spondylolisthesis. With significant degeneration of L4-5 and L5-S1. Urinary Catheter Management: Fraga: Cath Placed During This Visit: yes Reason for Continuing Indwelling Catheter: Acute Urinary Retention or Obstruction Urinary Catheter Date of Insertion: 02/26/23 Urinary Catheter Time of Insertion: 19:07 Data 02/27/23 05:04 02/27/23 05:04 Micro: Microbiology 02/26/23 12:30 Blood Culture - Preliminary Blood SPECIMEN COLLECTED 02/26/23 12:25 Blood Culture - Preliminary Blood SPECIMEN COLLECTED A&P Assessment and plan (1) Osteomyelitis of spine: At this point I would recommend IV antibiotics. We will follow from a distance. Please call if needed. Consult Attestations Medical Necessity Statement: per primary service Coding Level of Care Code Acute Code for Chg Fwd Diagnoses Osteomyelitis of spine M46.20
--- NOTE | 2023-02-27 10:12 | P.PN_ITS ---
Subjective Subjective: We will touch base with Dr. Ward to see if patient needs debridement of his sacral area ulcer Requested rectal tube because I think with tunneling of wound and T12 osteomyelitis his chances of getting worsening including meningitis are pretty high Patient has a Fraga catheter Dr. Barrientos recommended continuation of IV antibiotics Vitals/I&O/Wt Last Vital Signs Temp 98.3 F 02/27/23 05:20 Pulse 66 02/27/23 09:26 Resp 16 02/27/23 09:26 BP 106/51 02/27/23 07:56 Pulse Ox 95 02/27/23 09:26 O2 Del Method Room Air 02/27/23 09:26 02/26/23 02/27/23 02/27/23 22:59 06:59 14:59 Intake Total 300 / 1300 300 / 1600 Output Total 850 / 850 Balance 300 / 1300 -550 / 750 Weight last 48 hrs Weight 58.967 kg Physical Exam Narrative: Patient is awake and alert Communicative Currently on room air Abdomen soft Protein calorie malnourishment GCS 15 Nonfocal neuro exam Tunneling of sacral area, sacral area ulcer present on admission Urinary Catheter Management: Fraga: Cath Placed During This Visit: yes Reason for Continuing Indwelling Catheter: Acute Urinary Retention or Obstructio n Urinary Catheter Date of Insertion: 02/26/23 Urinary Catheter Time of Insertion: 19:07 Data 02/27/23 05:04 02/27/23 05:04 Micro: Microbiology 02/26/23 12:30 Blood Culture - Preliminary Blood SPECIMEN COLLECTED 02/26/23 12:25 Blood Culture - Preliminary Blood SPECIMEN COLLECTED A&P Assessment and plan (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 Ward to see if he would require debridement Considering his age and comorbid conditions he might not be a candidate for diverting colostomy We will place rectal tube Fraga catheter in place Continue antibiotics Appreciate Dr. 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
[2023-02-27] MEDS: HYDROcodone-acetaminophen 10-325 mg Tablet 1 TAB PO (10:13)
[2023-02-27] MEDS: tamsulosin 0.4 mg Capsule PO (10:14)
[2023-02-27] MEDS: atorvastatin 40 mg Tablet PO (10:15)
[2023-02-27] MEDS: heparin 5,000 unit/mL INJ 1 mL 5000 UNIT SUBCUT ×2 (10:16→20:38)
--- NOTE | 2023-02-27 12:34 | P.CONIM_ITS ---
Providers/Reason For Consult Consulting Physician/Specialty*: Dr. Jeffrey Ward, DO/General surgery Reason for Consult*: Sacral decubitus ulcer Attending Physician: Marquez Metcalf MD Primary Care Provider: Wayne Ruelas MD History of Present Illness History of Present Illness Brendan Thacker is a 87 year old male who presented to the hospital from his PCPs office with progressive fatigue. He reports that he has a wound on his backside that feels like sandpaper and is tender to the touch. Pain does not radiate. Palpation makes pain worse. Offloading makes pain better. Denies any nausea or vomiting. He was found to have T12-L1 osteomyelitis on imaging. Gen eral surgery was consulted due to a sacral decubitus ulcer. Review of Systems General: Reports: 10 or more systems reviewed and unremarkable except in HPI and below Medications/Allergies Home Medications Medication Instructions Recorded Confirmed Last Taken Type naproxen sodium 220 mg tablet 220 mg PO BID PRN Pain 10/05/19 02/26/23 02/25/23 History (Aleve) pyridoxine (vitamin B6) 250 mg 250 mg PO DAILY 10/05/19 02/26/23 02/25/23 History tablet lisinopril 40 mg tablet 40 mg PO DAILY 90 days #90 tabs 04/24/22 02/26/23 02/25/23 Rx atorvastatin 40 mg tablet 40 mg PO DAILY #90 tabs 07/21/22 02/26/23 02/25/23 Rx clopidogrel 75 mg tablet (Plavix) 75 mg PO DAILY #90 tabs 07/21/22 02/26/23 02/25/23 Rx furosemide 20 mg tablet 20 mg PO DAILY #90 tabs 07/21/22 02/26/23 02/25/23 Rx potassium chloride 8 mEq 8 meq PO DAILY #90 tabs 07/21/22 02/26/23 02/25/23 Rx tablet,extended release losartan 50 mg tablet 50 mg PO DAILY 11/11/22 02/26/23 02/25/23 History tamsulosin 0.4 mg capsule (Flomax) 0.4 mg PO DAILY #30 caps 11/11/22 02/26/23 12/23/22 Rx ondansetron HCl 4 mg tablet 4 mg PO Q6H PRN nausea and 01/26/23 02/26/23 Unknown Rx vomiting #10 tabs fentanyl 25 mcg/hr transdermal 1 patch transdermal Q72H #5 ea 02/13/23 02/26/23 Unknown Rx patch hydrocodone 10 mg-acetaminophen 1 tab PO Q6H PRN pain #30 tabs 02/23/23 02/26/23 02/25/23 Rx 325 mg tablet Allergies Allergy/AdvReac Type Severity Reaction Status Date / Time allopurinol Allergy Unknown Unknown Verified 02/26/23 15:32 barium sulfate Allergy Unknown Unknown Verified 02/26/23 15:32 beclomethasone Allergy Unknown Unknown Verified 02/26/23 15:32 [From Vancenase] cephalexin [From Keflex] Allergy Unknown unknown Verified 02/26/23 15:32 gatifloxacin [From Tequin] Allergy Unknown unknown Verified 02/26/23 15:32 quinidine Allergy Unknown unknown Verified 02/26/23 15:32 Current Medications Generic Name Dose Route Start Last Admin Trade Name Freq PRN Reason Stop Dose Admin Hydrocodone Bitart/Acetaminophen 1 tab 02/26/23 17:09 02/28/23 11:35 Hydrocodone-Acetaminophen 10-325 Mg Tablet PO 1 tab Q6H PRN Administration MODERATE pain Atorvastatin Calcium 40 mg 02/27/23 09:00 02/28/23 09:01 Atorvastatin 40 Mg Tablet PO 40 mg DAILY MIKHAIL Administration Collagenase 1 applic 02/27/23 12:00 02/28/23 09:01 Collagenase Oint 30 Gm TOPICAL 1 applic DAILY MIKHAIL Administration Diphenhydramine HCl 4.165 mg/ 0 mg 02/27/23 11:01 02/27/23 11:13 Al Hydrox/Mg Hydrox/ PO 5 ml Simethicone 1.667 ml Q4H PRN Administration MOUTH PAIN Fentanyl 1 patch 02/26/23 18:00 02/26/23 18:55 Fentanyl 25 Mcg Patch TRANSDERMA 1 patch Q72H MIKHAIL Administration Heparin Sodium (Porcine) 5,000 unit 02/26/23 20:00 02/28/23 09:01 Heparin 5,000 Unit/Ml Inj 1 Ml SUBCUT 5,000 unit Q12H MIKHAIL Administration Piperacillin Sod/Tazobactam 50 mls @ 12.5 mls/hr 02/26/23 17:30 02/28/23 09: 02 Sod 3.375 gm/ Sodium Chloride IV 12.5 mls/hr Q8H MIKHAIL Administration Protocol As Directed Vancomycin HCl 750 mg/ Sodium 250 mls @ 250 mls/hr 02/27/23 05:00 02/28/23 06:53 Chloride IV Infused Q24H MIKHAIL Infusion Protocol As Directed Sodium Chloride 1,000 mls @ 75 mls/hr 02/27/23 00:45 02/28/23 09:00 Sodium Chloride 0.9% IV 75 mls/hr .[id number] MIKHAIL Administration Tamsulosin HCl 0.4 mg 02/27/23 09:00 02/28/23 09:01 Tamsulosin 0.4 Mg Capsule PO 0.4 mg DAILY MIKHAIL Administration PFSH Acute PFSH: Medical History Atypical chest pain BPH loc w urin obs/LUTS Chronic low back pain Edema, peripheral History of pacemaker History of prostate cancer Hyperlipidemia Hypertension 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 Renal calculus, left Ureteral calculus, left Urolithiasis WPW (Uvrdn-Syuhzaqzt-Qzjxg syndrome) Surgical History H/O hernia repair H/O vasectomy History of PTCA History of rotator cuff surgery Hx of cholecystectomy Hx of tonsillectomy Family History Mother , IN HER 80'S CAD (coronary artery disease) Father , AT AGE 85 Cancer Lung disease Other Hypertension Social History Smoking and tobacco status: never smoked Alcohol intake: never Substance/Drug Use: never Marital status: / Current occupational status: retired Vitals/I&O/Wt Last Vital Signs Temp 98 F 02/28/23 11:28 Pulse 90 02/28/23 11:28 Resp 16 02/28/23 11:28 BP 114/65 02/28/23 11:28 Pulse Ox 96 02/28/23 11:28 O2 Del Method Room Air 02/28/23 11:28 02/27/23 02/28/23 02/28/23 22:59 06:59 14:59 Intake Total 1050 / 0 300 / 2350 1000 / 1000 Output Total 920 / 920 Balance 1050 / 2050 -620 / 1430 1000 / 1000 Physical Exam Narrative: General : Patient is well developed , no acute distress, oriented x3 Head : Normal cephalic, a-traumatic. Ears : Pinnae and external canal are normal. Hearing is normal. Eyes : PERRLA, Sclera and injection are normal. No conjunctival discharge. Nose : Mucous membranes are without erythema. Throat : buccal mucosa is normal, gums are without significant recession or hypertrophy. Lungs : Equal chest rise bilaterally, no use of accessory muscles, trachea is midline. Cor : Rate and rhythm are normal. Abdomen : Soft, ND, NT, no g/r/m Skin: There is an unstageable sacral decubitus ulcer with a quarter sized eschar. I probed this area and could not identify any tunneling. This is not a very thick eschar. Extremities : No edema, no cyanosis or clubbing, dorsalis pedis pulses are present bilaterally, non-tender to palpation of calves. Upper extremities are normal bilaterally. Back : non-tender to palpation, no CVA tenderness. Urinary Catheter Management: Fraga: Cath Placed During This Visit: yes Reason for Continuing Indwelling Catheter: Assist healing open wound Urinary Catheter Date of Insertion: 02/26/23 Urinary Catheter Time of Insertion: 19:07 Data 02/28/23 02:59 02/28/23 02:59 Micro: Microbiology 02/26/23 12:30 Blood Culture - Preliminary Blood NEGATIVE TO DATE 02/26/23 12:25 Blood Culture - Preliminary Blood NEGATIVE TO DATE A&P Assessment and plan (1) Decubitus ulcer of sacral region, unstageable: Plan Ulcer is likely stage III. I do not see any evidence of tunneling up to T12-L1 which is about 1 foot away from the wound. Agree with IV antibiotics. Carlotta and Nilson daily We will follow No acute surgical intervention Coding Level of Care Code 53828 Diagnoses Decubitus ulcer of sacral region, unstageable L89.150
[2023-02-27] MEDS: collagenase oint 30 gm 1 APPLIC TOPICAL (12:38)
[2023-02-27] MEDS: sodium chloride 0.9% 1,000 ML 999 ML IV (14:33)
[2023-02-28] VITALS (11 sets, daily range): BP systolic 84–115; BP diastolic 44–66; PULSE 63–92; RESP 16–18; TEMP 36.4–36.9; O2SAT 95–97
[2023-02-28] MEDS: piperacillin-tazobactam 3.375 GM in sodium chloride 0.9% (plus) 50 ML IV ×3 (01:38→16:47)
[2023-02-28 03:43] LABS: Basophils # 0.1 10^3/uL (0.0-0.1); Basophils % 0.7 %; Eosinophils # 0.2 10^3/uL (0.0-0.8); Eosinophils % 2.5 %; Hematocrit 32.1 % (42.0-52.0); Hemoglobin 10.6 g/dL (11.7-16.6); Lymphocytes # 0.9 10^3/uL (0.8-4.8); Lymphocytes % 11.9 %; Mean Corpuscular Hemoglobin 31.4 pg (28.0-34.0); Mean Platelet Volume 10.4 fL (7.4-10.4); Monocytes # 0.4 10^3/uL (0.2-0.9); Monocytes % 5.2 %; Neutrophils # 5.64 10^3/uL (1.8-7.7); Neutrophils % 79.1 %; Nucleated Red Blood Cells % 0 %; Platelet Count 201 10^3/cmm (130-400); Red Blood Count 3.38 10^6/uL (4.1-5.3); Red Cell Distribution Width 14.7 % (12.1-15.1); White Blood Count 7.1 10^3/uL (4.0-10.0)
[2023-02-28 03:57] LABS: Anion Gap 13.1 (5-19); Blood Urea Nitrogen 30 mg/dL (8-23); Calcium 8.2 mg/dL (8.5-10.5); Carbon Dioxide 23 mmol/L (22-29); Chloride 106 mmol/L (98-107); Glucose 148 mg/dL (65-115); Osmolality Calculated 295 mOsm/kg (285-295); Potassium 4.1 mmol/L (3.5-5.1); Sodium 138 mmol/L (136-145)
[2023-02-28] MEDS: vancomycin 750 MG in sodium chloride 0.9% 250 ML 250 MG IV (05:36)
[2023-02-28] MEDS: sodium chloride 0.9% 1,000 ML 75 ML IV ×2 (09:00→20:57)
[2023-02-28] MEDS: atorvastatin 40 mg Tablet PO (09:01)
[2023-02-28] MEDS: tamsulosin 0.4 mg Capsule PO (09:01)
[2023-02-28] MEDS: collagenase oint 30 gm 1 APPLIC TOPICAL (09:01)
[2023-02-28] MEDS: heparin 5,000 unit/mL INJ 1 mL 5000 UNIT SUBCUT ×2 (09:01→20:57)
[2023-02-28] MEDS: HYDROcodone-acetaminophen 10-325 mg Tablet 1 TAB PO ×2 (11:35→17:28)
--- NOTE | 2023-02-28 12:39 | PM.PN ---
Subjective Subjective: Patient was endorsing constipation No bowel movement since admission Appreciate orthopedics and general surgery recommendations No fever or leukocytosis Vitals/I&O/Wt Last Vital Signs Temp 98 F 02/28/23 11:28 Pulse 90 02/28/23 11:28 Resp 16 02/28/23 11:28 BP 114/65 02/28/23 11:28 Pulse Ox 96 02/28/23 11:28 O2 Del Method Room Air 02/28/23 11:28 02/27/23 02/28/23 02/28/23 22:59 06:59 14:59 Intake Total 1050 / 0 300 / 2350 1000 / 1000 Output Total 920 / 920 Balance 1050 / 2050 -620 / 1430 1000 / 1000 Physical Exam Narrative: Patient is laying supine Dehydrated Malnourished Protein calorie malnourishment Rectal tube and Fraga catheter in place S1S2 sacral ulcer present since admission, Patient currently is on room air Nonfocal neuro exam Urinary Catheter Management: Fraga: Cath Placed During This Visit: yes Reason for Continuing Indwelling Catheter: Assist healing open wound Urinary Catheter Date of Insertion: 02/26/23 Urinary Catheter Time of Insertion: 19:07 Data 02/28/23 02:59 02/28/23 02:59 Micro: Microbiology 02/26/23 12:30 Blood Culture - Preliminary Blood NEGATIVE TO DATE 02/26/23 12:25 Blood Culture - Preliminary Blood NEGATIVE TO DATE A&P Assessment and plan (1) Osteomyelitis of spine: (2) WPW (Apfii-Hgobvswqv-Yljyu syndrome): (3) Pacemaker: (4) Spondylolisthesis at L4-L5 level: (5) BPH loc w urin obs/LUTS: (6) Constipation: (7) Sacral decubitus ulcer, stage III: Plan History of osteomyelitis Blood cultures negative Afebrile No leukocytosis Concern for infective endocarditis is low at this point Patient carries history of prostate cancer Sacral ulcer stage III Present since admission Appreciate general surgery recommendations Dr. Ward [facility] recommended conservative management with IV antibiotics Patient is deconditioned Malnourished We will go to [facility] I would continue broad-spectrum antibiotics until the day of discharge, if cultures remain negative he might need chronic suppressive p.o. antibiotic therapy for osteomyelitis, no plan for surgical intervention No signs of cauda equina constipation: We will give bowel regimen today Because of sacral ulcer we have requested rectal tube and Fraga catheter To avoid contamination of sacral ulcer DNR/DNI Attestations Medical Necessity Statement*: Continue antibiotic therapy Diagnoses Osteomyelitis of spine M46.20 WPW (Xvije-Juavinber-Xizst syndrome) I45.6 Pacemaker Z95.0 Spondylolisthesis at L4-L5 level M43.16 BPH loc w urin obs/LUTS N40.1 Constipation K59.00 Sacral decubitus ulcer, stage III L89.153
--- NOTE | 2023-02-28 13:22 | PC.NURSE ---
patient was sleeping. Refuses medications at this time. Will take when he wakes up.
[2023-02-28] MEDS: lactulose oral liq 20 gm/30 mL UDC 10 GM PO (15:18)
[2023-02-28] MEDS: clopidogrel 75 mg Tablet PO (15:18)
[2023-02-28] MEDS: sodium chloride 0.9% 250 ML IV (16:45)
[2023-02-28] MEDS: sennosides-docusate Tablet 2 TAB PO (18:18)
[2023-02-28] MEDS: sodium chloride 0.9% 500 ML 999 ML IV (20:55)
[2023-03-01] VITALS (7 sets, daily range): BP systolic 92–146; BP diastolic 52–72; PULSE 60–80; RESP 15–20; TEMP 36.4–36.6; O2SAT 95–99
[2023-03-01] MEDS: piperacillin-tazobactam 3.375 GM in sodium chloride 0.9% (plus) 50 ML IV ×3 (01:35→17:47)
[2023-03-01 05:06] LABS: Basophils % 0.5 %; Eosinophils # 0.1 10^3/uL (0.0-0.8); Eosinophils % 1.7 %; Hematocrit 29.1 % (42.0-52.0); Hemoglobin 9.7 g/dL (11.7-16.6); Lymphocytes # 0.7 10^3/uL (0.8-4.8); Mean Corpuscular HGB Conc 33.3 g/dL (30.0-36.0); Mean Corpuscular Hemoglobin 31.8 pg (28.0-34.0); Mean Corpuscular Volume 95.4 fl (80-94); Mean Platelet Volume 9.9 fL (7.4-10.4); Monocytes # 0.3 10^3/uL (0.2-0.9); Monocytes % 3.9 %; Neutrophils % 84.4 %; Nucleated Red Blood Cells % 0 %; Platelet Count 246 10^3/cmm (130-400); Red Blood Count 3.05 10^6/uL (4.1-5.3); Red Cell Distribution Width 14.6 % (12.1-15.1); White Blood Count 7.5 10^3/uL (4.0-10.0)
[2023-03-01 05:22] LABS: Anion Gap 9.8 (5-19); Blood Urea Nitrogen 27 mg/dL (8-23); Carbon Dioxide 24 mmol/L (22-29); Chloride 110 mmol/L (98-107); Glucose 149 mg/dL (65-115); Osmolality Calculated 298 mOsm/kg (285-295); Potassium 3.8 mmol/L (3.5-5.1); Sodium 140 mmol/L (136-145); Vancomycin Trough 7.6 ug/mL (10-15)
[2023-03-01] MEDS: vancomycin 1,000 MG in sodium chloride 0.9% 250 ML 250 MG IV (05:41)
[2023-03-01] MEDS: sennosides-docusate Tablet 2 TAB PO ×2 (08:58→17:47)
[2023-03-01] MEDS: atorvastatin 40 mg Tablet PO (08:58)
[2023-03-01] MEDS: heparin 5,000 unit/mL INJ 1 mL 5000 UNIT SUBCUT ×2 (08:59→21:11)
[2023-03-01] MEDS: clopidogrel 75 mg Tablet PO (08:59)
[2023-03-01] MEDS: HYDROcodone-acetaminophen 10-325 mg Tablet 1 TAB PO (08:59)
[2023-03-01] MEDS: tamsulosin 0.4 mg Capsule PO (08:59)
[2023-03-01] MEDS: collagenase oint 30 gm 1 APPLIC TOPICAL (09:00)
--- NOTE | 2023-03-01 10:21 | PC.SOCIAL ---
IMM update IMM updated with patient. Verbalized an understanding. Copy Pg 2 provided. Initialled, dated, timed, and placed in chart.
--- NOTE | 2023-03-01 12:13 | PM.PN ---
Subjective Subjective: Patient is stating that he had to strain initially for a BM but now he does not have to anymore I have asked nurse to remove his rectal tube because there is leakage around his rectal tube which might be causing some obstruction No active pain Hemoglobin stable No fever or leukocytosis Patient was complaining of left arm weakness and pain which she is stating that is chronic since his shoulder injury Nonfocal neuro exam Vitals/I&O/Wt Last Vital Signs Temp 97.5 F L 03/01/23 11:30 Pulse 62 03/01/23 11:30 Resp 18 03/01/23 11:30 BP 121/54 03/01/23 11:30 Pulse Ox 98 03/01/23 11:30 O2 Del Method Room Air 03/01/23 11:30 02/28/23 03/01/23 03/01/23 22:59 06:59 14:59 Intake Total 1446.25 / 2496.25 50 / 2546.25 120 / 120 Output Total 500 / 500 400 / 900 Balance 946.25 / 1996.25 -350 / 1646.25 120 / 120 Physical Exam Narrative: Patient is awake and alert Nonfocal neuro exam Fraga catheter in place Leakage around rectal tube noted Abdomen soft Cachectic malnourished Urinary Catheter Management: Fraga: Cath Placed During This Visit: yes Reason for Continuing Indwelling Catheter: Assist healing open wound Urinary Catheter Date of Insertion: 02/26/23 Urinary Catheter Time of Insertion: 19:07 Data 03/01/23 04:23 03/01/23 04:23 A&P Assessment and plan (1) Decubitus ulcer of sacral region, unstageable: (2) Constipation: (3) Osteomyelitis of spine: (4) WPW (Nkygp-Whlmgsmnb-Bxmyi syndrome): (5) Pacemaker: (6) BPH loc w urin obs/LUTS: (7) Hypertension: Qualifiers: Hypertension type: essential hypertension Qualified Code(s): I10 - Essential (primary) hypertension Plan T12 osteomyelitis Currently patient is on broad-spectrum antibiotics Sacral eschar without significant tunneling Cultures negative to date No fever Dr. Barrientos wanted to see response on IV antibiotics We will touch base with him on Thursday Patient has a retained ureteral stent, suspicion for infective endocarditis low Carries history of prostate cancer which was treated 20 years ago Please note, patient had ablation done around thoracolumbar region by pain medicine doctor Dr. Chicas on Thursday, no active abscess Echo taken but results pending Protein calorie malnourishment Consult dietitian Constipation: Patient was given lactulose, we will plan to remove rectal tube, Fraga catheter rectal tube was placed because of sacral ulcer with black eschar Sacral ulcer present since admission No significant tunneling Unstageable Black eschar present since admission As per the patient sacral ulcer has been an issue for last 12 months Social dynamics: Lives with brother who has autism Daughter checks on him who has medical DPOA Daughter has him accepted at [facility] PICC line placed on admission Patient will need long-term antibiotic DNR/DNI Request OT for upper extremity weakness which is chronic nonfocal neuro exam Continue PT Attestations Medical Necessity Statement*: Continue medical management Diagnoses Decubitus ulcer of sacral region, unstageable L89.150 Constipation K59.00 Osteomyelitis of spine M46.20 WPW (Sumsh-Vlelvkcaz-Hgxfn syndrome) I45.6 Pacemaker Z95.0 BPH loc w urin obs/LUTS N40.1 Hypertension I10 Hypertension type: essential hypertension
[2023-03-01] MEDS: sodium chloride 0.9% 1,000 ML 75 ML IV (12:44)
[2023-03-01] MEDS: lactulose oral liq 20 gm/30 mL UDC 10 GM PO (12:49)
--- NOTE | 2023-03-01 13:21 | PC.NURSE ---
Dr. Metcalf verbal ordered rectum tube to be removed. Patient Does NOT want it removed. Notified Dr. Metcalf he said OKAY.
--- NOTE | 2023-03-01 14:43 | PC.NURSE ---
Rectal tube removed from patient.
[2023-03-01] MEDS: fentaNYL 25 mcg Patch 1 PATCH TRANSDERMA (17:46)
[2023-03-02] VITALS (8 sets, daily range): BP systolic 101–133; BP diastolic 51–83; PULSE 60–85; RESP 15–18; TEMP 36.4–36.9; O2SAT 91–99
[2023-03-02] MEDS: vancomycin 1,000 MG in sodium chloride 0.9% 250 ML 250 MG IV ×2 (00:29→16:58)
[2023-03-02] MEDS: piperacillin-tazobactam 3.375 GM in sodium chloride 0.9% (plus) 50 ML IV ×3 (01:30→16:57)
[2023-03-02 05:11] LABS: Basophils % 0.4 %; Eosinophils # 0.2 10^3/uL (0.0-0.8); Eosinophils % 2.8 %; Hemoglobin 10.5 g/dL (11.7-16.6); Lymphocytes # 0.8 10^3/uL (0.8-4.8); Lymphocytes % 14.2 %; Mean Corpuscular HGB Conc 33.9 g/dL (30.0-36.0); Mean Corpuscular Hemoglobin 32.1 pg (28.0-34.0); Mean Corpuscular Volume 94.8 fl (80-94); Mean Platelet Volume 9.5 fL (7.4-10.4); Monocytes # 0.3 10^3/uL (0.2-0.9); Neutrophils # 4.19 10^3/uL (1.8-7.7); Nucleated Red Blood Cells % 0 %; Platelet Count 243 10^3/cmm (130-400); Red Blood Count 3.27 10^6/uL (4.1-5.3); Red Cell Distribution Width 14.6 % (12.1-15.1); White Blood Count 5.4 10^3/uL (4.0-10.0)
[2023-03-02 05:36] LABS: Anion Gap 11.7 (5-19); Blood Urea Nitrogen 25 mg/dL (8-23); Calcium 8.5 mg/dL (8.5-10.5); Carbon Dioxide 24 mmol/L (22-29); Chloride 108 mmol/L (98-107); Glucose 188 mg/dL (65-115); Osmolality Calculated 299 mOsm/kg (285-295); Potassium 3.7 mmol/L (3.5-5.1); Sodium 140 mmol/L (136-145)
[2023-03-02] MEDS: sennosides-docusate Tablet 2 TAB PO (07:58)
[2023-03-02] MEDS: tamsulosin 0.4 mg Capsule PO (07:58)
[2023-03-02] MEDS: atorvastatin 40 mg Tablet PO (07:58)
[2023-03-02] MEDS: aspirin 81 mg EC Tablet PO (08:00)
[2023-03-02] MEDS: heparin 5,000 unit/mL INJ 1 mL 5000 UNIT SUBCUT ×2 (08:24→19:58)
[2023-03-02] MEDS: collagenase oint 30 gm 1 APPLIC TOPICAL (11:27)
[2023-03-02] MEDS: lidocaine 5% Patch 1 PATCH TOPICAL (19:59)
--- NOTE | 2023-03-02 20:55 | P.PN_ITS ---
Subjective Subjective: He is having a sore spot on the left side of his tongue. Additionally when he lays on the left side leaning on the left elbow/forearm he is having a painful spot in the left mid posterior rib cage. Vitals/I&O/Wt Last Vital Signs Temp 97.8 F 03/02/23 20:10 Pulse 73 03/02/23 20:10 Resp 17 03/02/23 20:10 BP 112/71 03/02/23 20:10 Pulse Ox 98 03/02/23 20:10 O2 Del Method Room Air 03/02/23 15:56 03/02/23 03/02/23 03/02/23 06:59 14:59 22:59 Intake Total 300 / 1760 350 / 350 Balance 300 / 1185 350 / 350 Physical Exam Const: COMMON NORMALS: patient oriented x3 and alert GENERAL APPEARANCE: cooperative ORIENTATION/CONSCIOUSNESS: Yes awake HENMT: COMMON NORMALS: oropharynx normal Neck/C-Spine: COMMON NORMALS: no JVD Resp: COMMON NORMALS: normal respiratory effort and clear to auscultation bilaterally AUSCULTATION: clear to auscultation bilaterally Cardio: COMMON NORMALS: no JVD, regular rhythm, S1 normal heart sound present, S2 normal heart sound present and No murmurs present (Cardio) RHYTHM: regular rhythm HEART SOUNDS: S1 normal heart sound present and S2 normal heart sound present GI: COMMON NORMALS: Normal to inspection, nondistended, normoactive bowel sounds present, Soft to palpation and non-tender PALPATION: Yes Soft to palpation Extremity: COMMON NORMALS: no joint enlargement and no pedal edema OTHER: Thin. Sarcopenia. Neuro: COMMON NORMALS: patient oriented x3 and moves all extremities SENSORIUM/ORIENTATION: Yes alert Skin: OTHER: Pressure ulcer lower sacrum. About 3 cm in size. Thin layer of slough/necrosis at the base of the ulcer. Mild surrounding erythema. Urinary Catheter Management: Rfaga: Cath Placed During This Visit: yes Reason for Continuing Indwelling Catheter: Chronic Indwelling Urinary Catheter on Admission Urinary Catheter Date of Insertion: 02/26/23 Urinary Catheter Time of Insertion: 19:07 Data 03/02/23 04:50 03/02/23 04:50 A&P Assessment and plan (1) Decubitus ulcer of sacral region, unstageable: (2) Constipation: (3) Osteomyelitis of spine: (4) WPW (Tesju-Qvlbuonfz-Ctsce syndrome): (5) Pacemaker: (6) BPH loc w urin obs/LUTS: (7) Hypertension: Qualifiers: Hypertension type: essential hypertension Qualified Code(s): I10 - Essential (primary) hypertension Plan T12-L1 osteomyelitis Discussed consideration of biopsy with him and his daughter as well as int erventional radiology and orthopedics. Interventional radiology unable to access as required transpedicular approach. Discussed with orthopedics and with him and his daughter, additional complicating factor is that he is on Plavix with history of cardiac stent, would be at risk of bleeding, additionally has been receiving antibiotics with possibility of negative sample. Additionally orthospine surgery is not going to be available for about 2 weeks starting after tomorrow, and thus in case of risk of bleeding would not be available to assist as well risk may be too high with too little chance of successful sample, although the other benefit would have been to allow him to decrease the number of antibiotics and target according to organism if 1 was identified as per discussion. Patient and daughter are agreeable at this time for allergy instead continue with empiric antibiotic coverage as per discussion with orthopedics. Additional important factor will be healing of the pressure ulcer to close the portal for entry of additional infection. Continue vancomycin, Zosyn currently. Discussed with him consideration of antibiotic choices after discharge. Likely vancomycin and ciprofloxacin with 6 weeks duration, follow-up with infectious disease in office. Lidocaine patch for pain. Sacral ulcer: Continue wound care with Santyl. Discussed with him frequent repositioning, he has been offloading pressure from the ulcer. Patient has a retained ureteral stent, suspicion for infective endocarditis low Carries history of prostate cancer which was treated 20 years ago Please note, patient had ablation done around thoracolumbar region by pain medicine doctor Dr. Chicas on Thursday, no active abscess Echo taken but results pending Moderate protein calorie malnourishment: BMI 17.2. Sarcopenia on exam. Appreciate dietitian recommendation. Supplements to be added to his meals. He was interested in asking about Ensure today. Aphthous ulcer: Left side tongue. Discussed with him concern for lidocaine containing sprays or rinses with risk of aspiration. Discussed warm salt water rinses, he is agreeable. Requested. Constipation: Patient was given lactulose, we will plan to remove rectal tube, Fraga catheter rectal tube was placed because of sacral ulcer with black eschar Social dynamics: Lives with brother who has autism Daughter checks on him who has medical DPOA Daughter has him accepted at [facility] PICC line placed on admission Patient will need long-term antibiotic DNR/DNI Request OT for upper extremity weakness which is chronic nonfocal neuro exam Continue PT Attestations Medical Necessity Statement*: Continue admission for assessment management of T12-L1 progressed osteomyelitis, sacral decubitus ulcer and a gentleman with malnutrition. Diagnoses Decubitus ulcer of sacral region, unstageable L89.150 Constipation K59.00 Osteomyelitis of spine M46.20 WPW (Ninad-Hmebtduka-Hqmee syndrome) I45.6 Pacemaker Z95.0 BPH loc w urin obs/LUTS N40.1 Hypertension I10 Hypertension type: essential hypertension
[2023-03-03] VITALS (8 sets, daily range): BP systolic 95–130; BP diastolic 55–68; PULSE 68–95; RESP 14–18; TEMP 36.3–36.8; O2SAT 97–100
[2023-03-03] MEDS: piperacillin-tazobactam 3.375 GM in sodium chloride 0.9% (plus) 50 ML IV ×3 (01:53→18:17)
[2023-03-03 05:28] LABS: Basophils % 0.8 %; Eosinophils # 0.2 10^3/uL (0.0-0.8); Eosinophils % 4.8 %; Hematocrit 30.8 % (42.0-52.0); Hemoglobin 10.1 g/dL (11.7-16.6); Lymphocytes # 0.9 10^3/uL (0.8-4.8); Lymphocytes % 17.6 %; Mean Corpuscular HGB Conc 32.8 g/dL (30.0-36.0); Mean Corpuscular Hemoglobin 30.8 pg (28.0-34.0); Mean Corpuscular Volume 93.9 fl (80-94); Monocytes # 0.3 10^3/uL (0.2-0.9); Monocytes % 6.2 %; Neutrophils # 3.46 10^3/uL (1.8-7.7); Neutrophils % 69.2 %; Nucleated Red Blood Cells % 0 %; Platelet Count 220 10^3/cmm (130-400); Red Blood Count 3.28 10^6/uL (4.1-5.3); Red Cell Distribution Width 14.6 % (12.1-15.1)
[2023-03-03 05:52] LABS: Anion Gap 10.9 (5-19); Blood Urea Nitrogen 22 mg/dL (8-23); Calcium 8.7 mg/dL (8.5-10.5); Carbon Dioxide 24 mmol/L (22-29); Chloride 107 mmol/L (98-107); Glucose 212 mg/dL (65-115); Osmolality Calculated 296 mOsm/kg (285-295); Potassium 3.9 mmol/L (3.5-5.1); Sodium 138 mmol/L (136-145)
[2023-03-03] MEDS: heparin 5,000 unit/mL INJ 1 mL 5000 UNIT SUBCUT ×2 (09:21→20:51)
[2023-03-03] MEDS: aspirin 81 mg EC Tablet PO (09:31)
[2023-03-03] MEDS: atorvastatin 40 mg Tablet PO (09:32)
[2023-03-03] MEDS: tamsulosin 0.4 mg Capsule PO (09:33)
[2023-03-03] MEDS: sennosides-docusate Tablet 2 TAB PO ×2 (09:33→18:17)
[2023-03-03] MEDS: collagenase oint 30 gm 1 APPLIC TOPICAL (09:41)
--- NOTE | 2023-03-03 10:12 | PC.SOCIAL ---
IMM Update pg 2 of IMM updated and reviewed w/ patient. Copy provided and Copy in chart dated, and initialed.
[2023-03-03 11:43] LABS: Vancomycin Trough 12.2 ug/mL (10-15)
[2023-03-03] MEDS: acetaminophen 500 mg Tablet PO (12:01)
[2023-03-03] MEDS: vancomycin 1,000 MG in sodium chloride 0.9% 250 ML 250 MG IV (13:16)
--- NOTE | 2023-03-03 18:25 | PC.NURSE ---
Patient is currently resting in bed. No needs at this time. Call light and bedside table are within reach.
[2023-03-03 19:07] LABS: SARS Covid-2 Antigen negative (Negative)
[2023-03-03] MEDS: lidocaine 5% Patch 1 PATCH TOPICAL (20:50)
--- NOTE | 2023-03-03 22:24 | PM.PN ---
Subjective Subjective: Still having a canker sore on the left side of his tongue. Had not received saline washes he had. Lidocaine patch was placed, initially not effective but once repositioned to the proper location did not help with the pain. Noted some urethral burning with defecation today. Discussed with him risk of infection, he initially wanted to keep urinary catheter. However, agreeable to discontinue and have a voiding trial, continue with urinal by the bedside. Vitals/I&O/Wt Last Vital Signs Temp 97.9 F 03/03/23 20:00 Pulse 75 03/03/23 20:00 Resp 14 03/03/23 20:00 BP 130/64 03/03/23 20:00 Pulse Ox 98 03/03/23 20:00 O2 Del Method Room Air 03/03/23 20:00 O2 Flow Rate 2 03/03/23 08:15 03/03/23 03/03/23 03/03/23 06:59 14:59 22:59 Intake Total 50 / 400 790 / 790 Output Total 1000 / 1000 350 / 350 250 / 600 Balance -950 / -600 440 / 440 -250 / 190 Physical Exam Const: COMMON NORMALS: patient oriented x3 and alert GENERAL APPEARANCE: cooperative ORIENTATION/CONSCIOUSNESS: Yes awake HENMT: COMMON NORMALS: oropharynx normal Neck/C-Spine: COMMON NORMALS: no JVD Resp: COMMON NORMALS: normal respiratory effort and clear to auscultation bilaterally AUSCULTATION: clear to auscultation bilaterally Cardio: COMMON NORMALS: no JVD, regular rhythm, S1 normal heart sound present, S2 normal heart sound present and No murmurs present (Cardio) RHYTHM: regular rhythm HEART SOUNDS: S1 normal heart sound present and S2 normal heart sound present GI: COMMON NORMALS: Normal to inspection, nondistended, normoactive bowel sounds present, Soft to palpation and non-tender PALPATION: Yes Soft to palpation Extremity: COMMON NORMALS: no joint enlargement and no pedal edema OTHER: Thin. Sarcopenia. Neuro: COMMON NORMALS: patient oriented x3 and moves all extremities SENSORIUM/ORIENTATION: Yes alert Skin: OTHER: Pressure ulcer lower sacrum. About 3 cm in size. Thin layer of slough/necrosis at the base of the ulcer. Mild surrounding erythema. Urinary Catheter Management: Fraga: Cath Placed During This Visit: yes, but has since been removed by the nurse Reason for Continuing Indwelling Catheter: Decision to DC Catheter Urinary Catheter Date of Insertion: 02/26/23 Urinary Catheter Time of Insertion: 19:07 Date Urinary Catheter Removed: 03/03/23 Time Urinary Catheter Discontinued: 18:51 Data 03/03/23 05:08 03/03/23 05:08 Micro: Microbiology 02/26/23 12:30 Blood Culture - Final Blood NO GROWTH AFTER 5 DAYS 02/26/23 12:25 Blood Culture - Final Blood NO GROWTH AFTER 5 DAYS A&P Assessment and plan (1) Decubitus ulcer of sacral region, unstageable: (2) Constipation: (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 Continue pain control, lidocaine patch seems to be helping. Ordered tramadol. Tylenol. DC Fraga. Revisited consideration of biopsy. He agrees with assessment as per yesterday documentation. Continue vancomycin, Zosyn currently. Noted normal renal function. Vanco trough is increasing, currently up to 12.2. Discussed with him consideration of antibiotic choices after discharge. Likely vancomycin and ciprofloxacin with 6 weeks duration, follow-up with infectious disease in office. Discussed dosing and end date with case management. Rapid COVID noted negative. Noted afebrile. WBC 5. Normal neutrophils. Sacral ulcer: Some urethral burning with defecation today. Discussed with him risk of UTI with indwelling Fraga catheter. He states he was not aware, is willing to remove the catheter. Requested discontinuation. Continue wound care with Santyl. Continue to encourage frequent repositioning, he has been offloading pressure from the ulcer. Patient has a retained ureteral stent, suspicion for infective endocarditis low Carries history of prostate cancer which was treated 20 years ago Please note, patient had ablation done around thoracolumbar region by pain medicine doctor Dr. Chicas on Thursday, no active abscess Echo taken but results pending Moderate protein calorie malnourishment: BMI 17.2. Sarcopenia on exam. Appreciate dietitian recommendation. Supplements to be added to his meals. He was interested in asking about Ensure today. Aphthous ulcer: Discussed with nursing staff, requested warm saline rinses. Left side tongue. Discussed with him concern for lidocaine containing sprays or rinses with risk of aspiration. Discussed warm salt water rinses, he is agreeable. Requested. Constipation: Rectal tube removed. Fraga catheter removed. Social dynamics: Lives with brother who has autism Daughter checks on him who has medical DPOA Daughter has him accepted at [facility] PICC line placed on admission Patient will need long-term antibiotic DNR/DNI Request OT for upper extremity weakness which is chronic nonfocal neuro exam Continue PT Attestations Medical Necessity Statement*: Continue admission for assessment management of thoracolumbar vertebral osteomyelitis preparation for continued IV antibiotics after discharge, pending approval to continue at snf, continue wound care for sacral ulcer, and gentleman with malnutrition, additional problems as above. and High Time for a total of 60 minutes, includes reviewing past or interval history, examining/interviewing patient, placing orders, counseling patient/family/other support, discussing plan of care with staff, communicating with other healthcare providers, documenting encounter and coordinating care Diagnoses Decubitus ulcer of sacral region, unstageable L89.150 Constipation K59.00 Osteomyelitis of spine M46.20 WPW (Jcmbe-Sxawsyaqd-Ksvvu syndrome) I45.6 Pacemaker Z95.0 BPH loc w urin obs/LUTS N40.1 Hypertension I10 Hypertension type: essential hypertension
[2023-03-04 00:05] VITALS: BP 112/62; PULSE 70; RESP 16; TEMP 36.8; O2SAT 97
[2023-03-04] MEDS: piperacillin-tazobactam 3.375 GM in sodium chloride 0.9% (plus) 50 ML IV ×2 (01:36→09:00)
[2023-03-04 04:00] VITALS: BP 138/77; PULSE 76; RESP 16; TEMP 36.8; O2SAT 97
[2023-03-04 05:14] LABS: Basophils # 0.1 10^3/uL (0.0-0.1); Basophils % 1.4 %; Eosinophils # 0.3 10^3/uL (0.0-0.8); Eosinophils % 5.3 %; Hematocrit 32.7 % (42.0-52.0); Hemoglobin 11.1 g/dL (11.7-16.6); Lymphocytes % 16.4 %; Mean Corpuscular HGB Conc 33.9 g/dL (30.0-36.0); Mean Corpuscular Volume 94.2 fl (80-94); Mean Platelet Volume 9.8 fL (7.4-10.4); Monocytes # 0.4 10^3/uL (0.2-0.9); Monocytes % 6.3 %; Neutrophils # 4.02 10^3/uL (1.8-7.7); Neutrophils % 68.9 %; Nucleated Red Blood Cells % 0 %; Platelet Count 212 10^3/cmm (130-400); Red Blood Count 3.47 10^6/uL (4.1-5.3); Red Cell Distribution Width 14.8 % (12.1-15.1); White Blood Count 5.8 10^3/uL (4.0-10.0)
[2023-03-04 05:49] LABS: Blood Urea Nitrogen 22 mg/dL (8-23); Calcium 8.8 mg/dL (8.5-10.5); Carbon Dioxide 27 mmol/L (22-29); Chloride 105 mmol/L (98-107); Glucose 216 mg/dL (65-115); Osmolality Calculated 298 mOsm/kg (285-295); Sodium 139 mmol/L (136-145)
[2023-03-04 05:55] LABS: Anion Gap 11.1 (5-19); Potassium 4.1 mmol/L (3.5-5.1)
[2023-03-04] MEDS: vancomycin 1,000 MG in sodium chloride 0.9% 250 ML 250 MG IV (05:58)
[2023-03-04 07:11] VITALS: BP 127/60; PULSE 67; RESP 16; TEMP 36.5; O2SAT 97
[2023-03-04] MEDS: heparin 5,000 unit/mL INJ 1 mL 5000 UNIT SUBCUT (09:00)
[2023-03-04] MEDS: TRAMadol 50 mg Tablet PO (09:01)
[2023-03-04] MEDS: sennosides-docusate Tablet 2 TAB PO (09:01)
[2023-03-04] MEDS: atorvastatin 40 mg Tablet PO (09:01)
[2023-03-04] MEDS: collagenase oint 30 gm 1 APPLIC TOPICAL (09:01)
[2023-03-04] MEDS: aspirin 81 mg EC Tablet PO (09:01)
[2023-03-04] MEDS: tamsulosin 0.4 mg Capsule PO (09:01)
[2023-03-04 09:35] VITALS: O2SAT 97
[2023-03-04 11:08] VITALS: BP 114/67; PULSE 79; RESP 16; TEMP 36.4; O2SAT 96
--- NOTE | 2023-03-04 11:34 | P.DS_ITS ---
Discharge Providers Date of Admission: 02/26/23 14:59 Date of Discharge: March 04, 2023 Attending Provider at Admission: Marquez Metcalf MD Attending Provider at Discharge: Wil Hope Primary Care Provider: Wayne Ruelas MD Diagnoses at Discharge Discharge Diagnosis (1) Decubitus ulcer of sacral region, unstageable: Status: Acute (2) Constipation: Status: Acute (3) Osteomyelitis of spine: Status: Acute (4) WPW (Sawld-Dkdfahoep-Ujifr syndrome): Status: Acute (5) Pacemaker: Status: Acute (6) BPH loc w urin obs/LUTS: Status: Acute (7) Hypertension: Status: Acute Qualifiers: Hypertension type: essential hypertension Qualified Code(s): I10 - Essential (primary) hypertension Reason for Visit Reason for Visit: sores, weightloss, pain Hospital Course Hospital Course Pleasant 87-year-old gentleman with remote history of prostate cancer, BPH, urolithiasis, ureteral stent, HTN, HLD, WPW syndrome, pacemaker, with recently with generalized weakness and fatigue, has had worsening back pain, spending a lot of time in the recliner, with sacral pressure ulcer. Recently underwent lumbosacral nerve ablation. In ER presentation diagnosed with T12/L1 vertebral osteomyelitis, on presentation with MASON, creatinine 1.4. Was started on IV antibiotic coverage with Zosyn, vancomycin. PICC line was placed. Was assessed by general surgery and orthospine surgery. No surgical intervention recommended. Continue with wound care with Santyl and foam dressing, frequent repositioning with sacral ulcer. Also with noted at least moderate malnutrition, was seen by dietitian, started on protein supplements. On discussion with him and his daughter bone biopsy was considered, however, risks were considered in this case to outweigh the potential benefits. He will continue empiric antibiotic coverage with vancomycin, ertapenem. He is asked to follow-up with infectious disease and orthopedics in office as well as wound care in clinic. Final blood cultures are negative. With offloading sacral ulcer he has been having some pain in the left posterior rib cage which has responded well to lidocaine patch. Salt water rinses for left-sided tongue aphthous ulcer. Reports chronic pain lateral to the right hip for which he has seen his primary provider. Discussed imaging with CT, however, he declines at current time. Initial consultation responded to stool softeners, currently soft stools, stool softener for now not continued. Follow-up with urology regarding ureteral stent. Physical Exam Narrative: He has been dealing with some chronic right lateral hip pain due to muscle injury for which has been following with primary provider. Refuses to image with CT. Otherwise pain over the left side back improved with lidocaine patch. Still having canker sore. Const: COMMON NORMALS: patient oriented x3 and alert GENERAL APPEARANCE: cooperative ORIENTATION/CONSCIOUSNESS: Yes awake HENMT: COMMON NORMALS: oropharynx normal Neck/C-Spine: COMMON NORMALS: no JVD Resp: COMMON NORMALS: normal respiratory effort and clear to auscultation bilaterally AUSCULTATION: clear to auscultation bilaterally Cardio: COMMON NORMALS: no JVD, regular rhythm, S1 normal heart sound present, S2 normal heart sound present and No murmurs present (Cardio) RHYTHM: regular rhythm HEART SOUNDS: S1 normal heart sound present and S2 normal heart sound present GI: COMMON NORMALS: Normal to inspection, nondistended, normoactive bowel sounds present, Soft to palpation and non-tender PALPATION: Yes Soft to palpation Extremity: COMMON NORMALS: no joint enlargement and no pedal edema OTHER: Thin. Sarcopenia. Neuro: COMMON NORMALS: patient oriented x3 and moves all extremities SENSORIUM/ORIENTATION: Yes alert Skin: OTHER: Pressure ulcer lower sacrum. About 3 cm in size. Thin layer of slough/necrosis at the base of the ulcer. Mild surrounding erythema. Urinary Catheter Management: Fraga: Cath Placed During This Visit: yes, but has since been removed by the nurse Reason for Continuing Indwelling Catheter: Decision to DC Catheter Urinary Catheter Date of Insertion: 02/26/23 Urinary Catheter Time of Insertion: 19:07 Date Urinary Catheter Removed: 03/03/23 Time Urinary Catheter Discontinued: 18:51 Discharge Data Studies Completed and Pending Completed Studies During Hospitalization Category Date Time Status CT lumbar spine wo/w con [id number] Stat Cat Scan 02/26/23 12:[address] thoracic spine wo/w [id number] Stat Cat Scan 02/26/23 12:06 Completed CXRP [XR chest 1V portable [id number]] Routine Exams 02/26/23 17:12 Completed XR chest 1V portable [id number] Stat Exams 02/26/23 11:46 Completed Pending at discharge Category Date Time Status Basic Metabolic Panel AM LABS Lab 03/05/23 04:00 Ordered Complete Blood Count w/Auto AM LABS Lab 03/05/23 04:00 Ordered CV. echo complete* [id number] Routine Ultrasound 02/26/23 17:09 Taken Radiology Impressions Lumbar Spine CT 02/26/23 12:06 IMPRESSION: 1. Findings consistent with osteomyelitis T12-L1 progressed from previous examination 2. 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 Thoracic Spine CT 02/26/23 12:06 IMPRESSION: Worsening endplate osteolytic/destructive bone changes T12-L1 with accompanying soft tissue changes consistent with progressive osteomyelitis. Chest X-Ray 02/26/23 17:12 IMPRESSION: PICC line tip in the distal SVC. Laboratory Results WBC 5.8 10^3/uL (4.0-10.0) 03/04/23 05:00 RBC 3.47 10^6/uL (4.1-5.3) L 03/04/23 05:00 Hgb 11.1 g/dL (11.7-16.6) L 03/04/23 05:00 Hct 32.7 % (42.0-52.0) L 03/04/23 05:00 MCV 94.2 fl (80-94) H 03/04/23 05:00 MCH 32.0 pg (28.0-34.0) 03/04/23 05:00 MCHC 33.9 g/dL (30.0-36.0) 03/04/23 05:00 RDW 14.8 % (12.1-15.1) 03/04/23 05:00 Plt Count 212 10^3/cmm (130-400) 03/04/23 05:00 MPV 9.8 fL (7.4-10.4) 03/04/23 05:00 Neut % (Auto) 68.9 % 03/04/23 05:00 Lymph % (Auto) 16.4 % 03/04/23 05:00 Rabun % (Auto) 6.3 % 03/04/23 05:00 Eos % (Auto) 5.3 % 03/04/23 05:00 Baso % (Auto) 1.4 % 03/04/23 05:00 Neut # (Auto) 4.02 10^3/uL (1.8-7.7) 03/04/23 05:00 Lymph # (Auto) 1.0 10^3/uL (0.8-4.8) 03/04/23 05:00 Rabun # (Auto) 0.4 10^3/uL (0.2-0.9) 03/04/23 05:00 Eos # (Auto) 0.3 10^3/uL (0.0-0.8) 03/04/23 05:00 Baso # (Auto) 0.1 10^3/uL (0.0-0.1) 03/04/23 05:00 Nucleated RBC % (auto) 0 % 03/04/23 05:00 Nucleated RBCs # 0.0 /100WBC 03/04/23 05:00 Sodium 139 mmol/L (136-145) 03/04/23 05:00 Potassium 4.1 mmol/L (3.5-5.1) 03/04/23 05:00 Chloride 105 mmol/L (98-107) 03/04/23 05:00 Carbon Dioxide 27 mmol/L (22-29) 03/04/23 05:00 Anion Gap 11.1 (5-19) 03/04/23 05:00 BUN 22 mg/dL (8-23) 03/04/23 05:00 Creatinine 0.6 mg/dL (0.7-1.2) L 03/04/23 05:00 GFR Calculation Not Reportable 03/04/23 05:00 Glucose 216 mg/dL (65-115) H 03/04/23 05:00 POC Glucose 165 mg/dL (70-110) H 02/27/23 02:49 Calculated Osmolality 298 mOsm/kg (285-295) H 03/04/23 05:00 Calcium 8.8 mg/dL (8.5-10.5) 03/04/23 05:00 Magnesium 1.7 mg/dL (1.7-2.3) 02/27/23 05:04 Total Bilirubin 0.8 mg/dL (0.15-1.2) 02/26/23 12:10 AST 25 U/L (0-40) 02/26/23 12:10 ALT 25 U/L (0-41) 02/26/23 12:10 Alkaline Phosphatase 123 U/L (40-130) 02/26/23 12:10 Creatine Kinase 51 U/L (39-308) 02/26/23 12:10 C-Reactive Protein 25.0 mg/L (0.0-4.9) H 02/27/23 05:04 Total Protein 5.9 g/dL (6.6-8.7) L 02/26/23 12:10 Albumin 3.1 g/dL (3.5-5.2) L 02/26/23 12:10 Globulin 2.8 g/dL (1.3-4.6) 02/26/23 12:10 Lipase 12 U/L (13-60) L 02/26/23 12:10 Urine Color Yellow (Yellow) 02/26/23 13:33 Urine Appearance Clear (CLEAR) 02/26/23 13:33 Urine pH 7 (5-7) 02/26/23 13:33 Ur Specific Hawley 1.005 (1.005-1.030) 02/26/23 13:33 Urine Protein Neg (Negative) 02/26/23 13:33 Urine Glucose (UA) Norm (Normal) 02/26/23 13:33 Urine Ketones Negative (Negative) 02/26/23 13:33 Urine Blood Neg (Negative) 02/26/23 13:33 Urine Nitrate Negative (Negative) 02/26/23 13:33 Urine Bilirubin Neg (Negative) 02/26/23 13:33 Urine Urobilinogen Norm mg/dL (Negative) 02/26/23 13:33 Ur Leukocyte Esterase Negative (Negative) 02/26/23 13:33 Vancomycin Trough 12.2 ug/mL (10-15) 03/03/23 11:08 SARS-CoV-2 Ag (Rapid) negative (Negative) 03/03/23 18:30 Vitals Last Vital Signs Temp 97.5 F L 03/04/23 11:08 Pulse 79 03/04/23 11:08 Resp 16 03/04/23 11:08 BP 114/67 03/04/23 11:08 Pulse Ox 96 03/04/23 11:08 O2 Del Method Room Air 03/04/23 09:35 O2 Flow Rate 2 03/03/23 20:00 Discharge Plan Discharge Patient Disposition: Xfer SNF Condition: Stable Prescriptions: New lidocaine 5 % Adhesive Patch,Medicated 1 patch topical [id number] Qty: 7 0RF Santyl 250 unit/gram Ointment 1 applic topical DAILY Qty: 30 0RF vancomycin 1,000 mg recon soln See Rx Instructions .ROUTE .COMPLEX 42 Days Qty: 48 0RF Rx Instructions: 1g IV Q18h ertapenem 1 gram recon soln 1 g IM Q24H Qty: 36 0RF Continued pyridoxine (vitamin B6) 250 mg tablet 250 mg PO DAILY Flomax 0.4 mg capsule 0.4 mg PO DAILY Qty: 30 12RF atorvastatin 40 mg tablet 40 mg PO DAILY Qty: 90 3RF Plavix 75 mg tablet 75 mg PO DAILY Qty: 90 3RF Hold Instructions: Resume on 12/25/22. potassium chloride 8 mEq tablet extended release 8 meq PO DAILY Qty: 90 3RF ondansetron HCl 4 mg tablet 4 mg PO Q6H PRN (Reason: nausea and vomiting) Qty: 10 0RF fentanyl 25 mcg/hr patch 72 hour 1 patch transdermal Q72H Qty: 5 0RF hydrocodone-acetaminophen 10-325 mg tablet 1 tab PO Q6H PRN (Reason: pain) Qty: 30 0RF Changed furosemide 20 mg tablet 20 mg PO DAILY PRN (Reason: Edema) Qty: 90 3RF No Action naproxen sodium [Aleve] 220 mg tablet 220 mg PO BID PRN (Reason: Pain) losartan 50 mg tablet 50 mg PO DAILY lisinopril 40 mg tablet 40 mg PO DAILY 90 Days Qty: 90 3RF Discharge Orders: Discharge Order (Routine); Ordered 03/04/23 Ordered By: Wil Hope Referrals: [facility]– [place][Note 2] [Outside] Jarrod Barrientos DO [Physician] - 03/31/23 1:00 pm Kimberly Kirk MD [Hospitalist] - 2 weeks (ID - vertebral OM) Wayne Ruelas MD [Primary Care Provider] - Discharge Activity: As per PT/OT instructions Patient Instructions: Vancomycin (By injection), Ertapenem (By injection), Osteomyelitis (GEN), How to Care for Your PICC (Peripherally Inserted Central Catheter) (GEN), Opioid Safety, PICC Activity Restrictions/Additional Instructions: Continue antibiotics for thoracolumbar osteomyelitis. Follow-up with infectious disease specialist and orthopedics. Continue pain control, rehabilitation. PICC line to be removed once IV antibiotics no longer needed. Continue wound care with Santyl on eschar of the pressure ulcer on the sacrum, cover with foam dressing. Follow-up with wound care. Warm salt water rinses twice a day for the next week for aphthous ulcer on the left side of the tongue. Please follow-up with primary doctor. Follow-up with urology regarding retained ureteral stent. Please stop blood pressure medications as your blood pressure has not been elevated. Monitor blood pressures. Consider resumption if blood pressure is rising and kidney function remains stable. Please stop naproxen, avoid NSAIDs. Please follow-up with your primary doctor for antibiotic allergy testing to assess if you are allergic to cephalosporin and quinolones. Continue with protein supplements with meals for malnutrition. Follow-up with senior c software engineer. Discharge Attestations Time Spent in Discharge Care*: greater than 30 min Quality Metrics Clinical Quality Measures [ No reported AMI, CVA or VTE this stay] Coding Level of Care Code 85191 Total time (in minutes) for Discharge: 60 Diagnoses Decubitus ulcer of sacral region, unstageable L89.150 Constipation K59.00 Osteomyelitis of spine M46.20 WPW (Ntjap-Mqhhzaahf-Lxwhm syndrome) I45.6 Pacemaker Z95.0 BPH loc w urin obs/LUTS N40.1 Hypertension I10 Hypertension type: essential hypertension
[2023-03-04] MEDS: ertapenem 1,000 MG in sodium chloride 0.9% (plus) 100 ML 200 MG IV (11:54)
--- NOTE | 2023-03-04 12:42 | PC.NURSE ---
This nurse called [facility] and gave report to SANDRA Lind. All questions were addressed and answered at this time. [facility] on bottom, mouth ulcer, PICC in place.
[2023-03-04] MEDS: acetaminophen 500 mg Tablet PO (12:50)
[2023-03-04 13:07] VITALS: BP 114/67; PULSE 79; RESP 16; TEMP 36.4; O2SAT 96
== END 2023-03-04 13:00 | disposition skilled nursing facility (03) | DRG 539 ==
LOC: ER 15:57 → MEDSURG 16:18
PROVIDERS: Admitting Provider Internal Medicine; Emergency Provider Family Medicine; PCP Family Medicine; Visit Provider Internal Medicine
DX: M46.25 Osteomyelitis of vertebra, thoracolumbar region (principal); L89.153 Pressure ulcer of sacral region, stage 3; N17.9 Acute kidney failure, unspecified; E44.0 Moderate protein-calorie malnutrition; Z85.46 Personal history of malignant neoplasm of prostate; N40.1 Benign prostatic hyperplasia with lower urinary tract symptoms; I10 Essential (primary) hypertension; E78.5 Hyperlipidemia, unspecified; Z95.0 Presence of cardiac pacemaker; K12.0 Recurrent oral aphthae; G89.29 Other chronic pain; M25.551 Pain in right hip; M43.16 Spondylolisthesis, lumbar region; Z79.02 Long term (current) use of antithrombotics/antiplatelets; Z79.891 Long term (current) use of opiate analgesic; Z66 Do not resuscitate; I45.6 Pre-excitation syndrome; R30.0 Dysuria; K59.00 Constipation, unspecified; Z96.0 Presence of urogenital implants; K40.90 Unilateral inguinal hernia, without obstruction or gangrene, not specified as recurrent; Z87.442 Personal history of urinary calculi; M19.011 Primary osteoarthritis, right shoulder; E86.0 Dehydration; M47.816 Spondylosis without myelopathy or radiculopathy, lumbar region
CPT/HCPCS: 36415; 36416; 36569; 36592; 51702; 64493; 64494; 64495; 71045; 72130; 72133; 80048; 80053; 80202; 81003; 82550; 82962; 83690; 83735; 85025; 86140; 87040; 87426; 93306; 96365; 96372; 96375; 96376; 97110; 97116; 97161; 97530; 99283; 99285; J1200; J1335; J1644; J2270; J2405; J2543; J3370; J3490; J7030; J7040; J7050; Q9967

== ENCOUNTER 2023-03-07 09:05 | Outpatient (CLI) | payer MEDICARE, SELFPAY ==
[2023-03-07 10:22] LABS: Vancomycin Trough 10.8 ug/mL (10-15)
== END 2023-03-07 09:06 | disposition home or self-care (01) ==
LOC: LAB 09:06
PROVIDERS: PCP Family Medicine; Visit Provider Family Medicine
DX: M46.25 Osteomyelitis of vertebra, thoracolumbar region (principal)
CPT/HCPCS: 80202

== ENCOUNTER 2023-03-19 19:21 | Emergency (ER) | payer MEDICARE, SELFPAY ==
--- NOTE | 2023-03-19 19:22 | W.ED.AMS ---
HPI - Altered Mental Status General: Chief Complaint: Altered Mental Status Stated Complaint: AMS Time Seen by Provider: 03/19/23 19:22 History of Present Illness: Mr. Thacker is a 87-year-old gentleman with complex past medical history include vertebral osteomyelitis, sacral ulcer, WPW, leukoencephalopathy presenting to the emergency department for possible mental status change. The patient himself only endorses noticing some difficulty with sleep and at times not being sure if he is dreaming or not including vivid dreams or possible mild delirium. He does endorse chronic right hip pain and back pain though this has not changed significantly and is largely positional. He tells a somewhat wandering though what seems accurate recent history without evidence of acute alteration. No other specific changes in health, exacerbating, or alleviating factors identified. 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 Renal calculus, left Sacral decubitus ulcer, stage III Ureteral calculus, left Urolithiasis WPW (Ejvro-Bsvqdyurk-Gbxgu syndrome) Surgical History H/O hernia repair H/O vasectomy History of PTCA History of rotator cuff surgery Hx of cholecystectomy Hx of tonsillectomy Family History Mother , IN HER 80'S CAD (coronary artery disease) Father , AT AGE 85 Cancer Lung disease Other Hypertension Social History Smoking and tobacco status: never smoked Alcohol intake: never Substance/Drug Use: never Marital status: / Current occupational status: retired Physical Exam Const: COMMON NORMALS: alert GENERAL APPEARANCE: cooperative and well developed HENMT: COMMON NORMALS: normocephalic and atraumatic HEAD & SCALP: normocephalic and atraumatic Eye: COMMON NORMALS: conjunctivae normal CONJUNCTIVA: Yes conjunctivae normal SCLERA: sclerae normal Neck/C-Spine: COMMON NORMALS: supple GENERAL: Yes trachea midline Resp: COMMON NORMALS: clear to auscultation bilaterally EFFORT & INSPECTION: Yes able to speak in complete sentences AUSCULTATION: clear to auscultation bilaterally Cardio: COMMON NORMALS: regular rate and regular rhythm RATE: regular rate RHYTHM: regular rhythm GI: COMMON NORMALS: Soft to palpation PALPATION: Yes Soft to palpation and No Tenderness to palpation present (GI) PERCUSSION: normal to percussion Extremity: GENERAL: Yes normal exam except as noted and No edema Neuro: COMMON NORMALS: moves all extremities SENSORIUM/ORIENTATION: Yes alert and No Orientation impaired Psych: COMMON NORMALS: mental status grossly normal and Normal thought process present THOUGHT PROCESS: Normal thought process present Course Vital Signs: Vital signs: Vital Signs Temperature 97.6 F 03/19/23 20:15 Pulse Rate 93 03/19/23 21:58 Respiratory Rate 18 03/19/23 21:58 Blood Pressure 131/84 03/19/23 21:58 Pulse Oximetry 95 03/19/23 21:58 Oxygen Delivery Me thod Nasal Cannula 03/19/23 21:58 Oxygen Flow Rate 2.5 03/19/23 21:58 MDM - Altered Mental Status Medical Decision Making 87-year-old gentleman presenting with concern over mental status change. No focal neurologic deficits identified but patient is alert and oriented and tells remarkably lucid history for complex recent care. Nontoxic. Labs overall similar to prior. Hematuria without UTI. COVID-negative. No acute abnormalities on chest and hip x-ray. Patient given fluids and analgesia. Likely multifactorial source of symptoms sounds more like sundowning or mild delirium. Certainly patient is on a number of medications which can interrupt adequate sleep. No indication for admission at this time. The results of ED evaluation were discussed with the patient including prescriptions and/or symptomatic cares (if applicable) including appropriate and responsible use, followup plan, and return precautions. The patient verbalized understanding and felt safe for discharge. [facility] to [facility]. Medical Records I reviewed the patient's medical records. Lab Data I reviewed the patient's lab results. 03/19/23 20:11 03/19/23 20:11 Radiology Impressions Chest X-Ray 03/19/23 19:35 IMPRESSION: Decreased lung volumes with hypoventilatory changes at the lung bases. Hip/Pelvis X-Ray 03/19/23 19:41 IMPRESSION: Mild degenerative changes right hip joint. No acute bony abnormalities. Laboratory Results WBC 8.4 10^3/uL (4.0-10.0) 03/19/23 20:11 RBC 3.64 10^6/uL (4.1-5.3) L 03/19/23 20:11 Hgb 11.5 g/dL (11.7-16.6) L 03/19/23 20:11 Hct 36.3 % (42.0-52.0) L 03/19/23 20:11 MCV 99.7 fl (80-94) H 03/19/23 20:11 MCH 31.6 pg (28.0-34.0) 03/19/23 20:11 MCHC 31.7 g/dL (30.0-36.0) 03/19/23 20:11 RDW 14.8 % (12.1-15.1) 03/19/23 20:11 Plt Count 258 10^3/cmm (130-400) 03/19/23 20:11 MPV 9.7 fL (7.4-10.4) 03/19/23 20:11 Neut % (Auto) 82.0 % 03/19/23 20:11 Lymph % (Auto) 9.6 % 03/19/23 20:11 Colbert % (Auto) 4.5 % 03/19/23 20:11 Eos % (Auto) 2.7 % 03/19/23 20:11 Baso % (Auto) 0.8 % 03/19/23 20:11 Neut # (Auto) 6.90 10^3/uL (1.8-7.7) 03/19/23 20:11 Lymph # (Auto) 0.8 10^3/uL (0.8-4.8) 03/19/23 20:11 Colbert # (Auto) 0.4 10^3/uL (0.2-0.9) 03/19/23 20:11 Eos # (Auto) 0.2 10^3/uL (0.0-0.8) 03/19/23 20:11 Baso # (Auto) 0.1 10^3/uL (0.0-0.1) 03/19/23 20:11 Nucleated RBC % (auto) 0 % 03/19/23 20:11 Nucleated RBCs # 0.0 /100WBC 03/19/23 20:11 Sodium 133 mmol/L (136-145) L 03/19/23 20:11 Potassium 4.1 mmol/L (3.5-5.1) 03/19/23 20:11 Chloride 99 mmol/L (98-107) 03/19/23 20:11 Carbon Dioxide 23 mmol/L (22-29) 03/19/23 20:11 Anion Gap 15.1 (5-19) 03/19/23 20:11 BUN 25 mg/dL (8-23) H 03/19/23 20:11 Creatinine 0.6 mg/dL (0.7-1.2) L 03/19/23 20:11 GFR Calculation Not Reportable 03/19/23 20:11 Glucose 160 mg/dL (65-115) H 03/19/23 20:11 POC Glucose 164 mg/dL (70-110) H 03/19/23 20:09 Calculated Osmolality 284 mOsm/kg (285-295) L 03/19/23 20:11 Calcium 8.9 mg/dL (8.5-10.5) 03/19/23 20:11 Total Bilirubin 0.6 mg/dL (0.15-1.2) 03/19/23 20:11 AST 29 U/L (0-40) 03/19/23 20:11 ALT 35 U/L (0-41) 03/19/23 20:11 Alkaline Phosphatase 151 U/L (40-130) H 03/19/23 20:11 Total Protein 5.8 g/dL (6.6-8.7) L 03/19/23 20:11 Albumin 2.6 g/dL (3.5-5.2) L 03/19/23 20:11 Globulin 3.2 g/dL (1.3-4.6) 03/19/23 20:11 TSH 1.76 uIU/mL (0.27-4.20) 03/19/23 20:11 Urine Color Yellow (Yellow) 03/19/23 21:23 Urine Appearance Clear (CLEAR) 03/19/23 21:23 Urine pH 5 (5-7) 03/19/23 21:23 Ur Specific [place] 1.020 (1.005-1.030) 03/19/23 21:23 Urine Protein Neg (Negative) 03/19/23 21:23 Urine Glucose (UA) Norm (Normal) 03/19/23 21:23 Urine Ketones Negative (Negative) 03/19/23 21:23 Urine Blood 3+ (Negative) H 03/19/23 21:23 Urine Nitrate Negative (Negative) 03/19/23 21: Urine Bilirubin Neg (Negative) 03/19/23 21:23 Urine Urobilinogen Neg mg/dL (Negative) 03/19/23 21:23 Ur Leukocyte Esterase Negative (Negative) 03/19/23 21: Urine RBC 5-10 /hpf (0-2) H 03/19/23 21:23 Urine WBC None /hpf (0-5) 03/19/23 21:23 Ur Squamous Epith Cells None /hpf (0-5) 03/19/23 21:23 Amorphous Sediment Not Reportable 03/19/23 21:23 Urine Bacteria None /hpf (NONE) 03/19/23 21:23 Urine Mucus 2+ /hpf 03/19/23 21:23 SARS-CoV-2 Ag (Rapid) negative (Negative) 03/19/23 20:16 Discharge Plan Discharge Patient Disposition: Home Clinical Impression: Episode of altered cognition, At risk for polypharmacy, Chronic anemia, Dehydration, mild, Chronic pain Condition: Stable Prescriptions: No Action naproxen sodium [Aleve] 220 mg tablet 220 mg PO BID PRN (Reason: Pain) pyridoxine (vitamin B6) 250 mg tablet 250 mg PO DAILY losartan 50 mg tablet 50 mg PO DAILY Flomax 0.4 mg capsule 0.4 mg PO DAILY Qty: 30 12RF lisinopril 40 mg tablet 40 mg PO DAILY 90 Days Qty: 90 3RF atorvastatin 40 mg tablet 40 mg PO DAILY Qty: 90 3RF Plavix 75 mg tablet 75 mg PO DAILY Qty: 90 3RF Hold Instructions: Resume on 12/25/22. potassium chloride 8 mEq tablet extended release 8 meq PO DAILY Qty: 90 3RF ondansetron HCl 4 mg tablet 4 mg PO Q6H PRN (Reason: nausea and vomiting) Qty: 10 0RF fentanyl 25 mcg/hr patch 72 hour 1 patch transdermal Q72H Qty: 5 0RF hydrocodone-acetaminophen 10-325 mg tablet 1 tab PO Q6H PRN (Reason: pain) Qty: 30 0RF lidocaine 5 % Adhesive Patch,Medicated 1 patch topical [id number] Qty: 7 0RF Santyl 250 unit/gram Ointment 1 applic topical DAILY Qty: 30 0RF vancomycin 1,000 mg recon soln See Rx Instructions .ROUTE .COMPLEX 42 Days Qty: 48 0RF Rx Instructions: 1g IV Q18h furosemide 20 mg tablet 20 mg PO DAILY PRN (Reason: Edema) Qty: 90 3RF ertapenem 1 gram recon soln 1 g IM Q24H Qty: 36 0RF Discharge Orders: Discharge ED (Routine); Ordered 03/19/23 Ordered By: Ramiro Castro Referrals: Wayne Ruelas MD [Primary Care Provider] - Patient Instructions: Altered Mental Status (ED), Opioid Safety, Pain Management Activity Restrictions/Additional Instructions: Thank you for visiting the emergency department. You were seen and evaluated for episodes of altered mental status. The exact cause of this is unclear. This may be related to age-related decline, to delirium episode secondary to underlying illness, or other cause however does not appear to need hospitalization at this time. I recommend follow-up with your primary care provider. I recommend continue your medication regimen including antibiotics. Return for any new focal neurologic symptoms or anything else that you are concerned about and feel needs emergency department evaluation. Coding Level of Care Code ED Hematologist Oncologist for Ashlie Webber
[2023-03-19 19:29] VITALS: BP 136/84; PULSE 88; RESP 22; TEMP 37.7; O2SAT 97; BMI 13.1
--- NOTE | 2023-03-19 19:35 | XRR_ITS ---
PROCEDURE INFORMATION: Exam: XR Chest Exam date and time: 03/19/2023 7:43 PM Age: 87 years old Clinical indication: Pain; Other: Right hip; Additional info: New oxygen req TECHNIQUE: Imaging protocol: Radiologic exam of the chest. Views: 1 view. COMPARISON: CR (CHEST, ) 02/26/2023 6:18 PM FINDINGS: Limitations: Assessment is somewhat limited due to decreased lung volumes and patient rotation. Lungs: Indistinct wispy opacities at the lung bases likely representing hypoventilatory and minor atelectatic changes. Upper lung zones are clear.. No consolidation. Pleural spaces: Unremarkable. No pleural effusion. No pneumothorax. Heart/Mediastinum: Cardiac silhouette is borderline enlarged, stable. Dual electrode pacemaker wires extending into the right atrium and right ventricle, unchanged. Bones/joints: Unremarkable for age. XR/XR chest 1V portable [id number] IMPRESSION: Decreased lung volumes with hypoventilatory changes at the lung bases.
--- NOTE | 2023-03-19 19:36 | ECG_ITS ---
[facility] Test Date: 2023-03-19 Pat Name: Brendan Thacker Department: Room: Gender: Male [employer] Professor: : [id number] Requested By: Ramior Castro Order Number: [id number] Carloz MD: Darion Fish M.D. Measurements Intervals [place] Rate: 91 P: 88 CT: 193 QRS: -83 QRSD: 165 T: 87 QT: 420 QTc: 517 Interpretive Statements ELECTRONIC VENTRICULAR PACEMAKER Compared to ECG 02/13/2023 19:15:57 No significant changes Electronically Signed On 03-19-2023 22:05:37 CDT by Darion Fish M.D. [id number]
--- NOTE | 2023-03-19 19:41 | XRR_ITS ---
PROCEDURE INFORMATION: Exam: XR Right Hip Exam date and time: 03/19/2023 7:46 PM Age: 87 years old Clinical indication: Hip pain; Right hip; Additional info: R hip pain TECHNIQUE: Imaging protocol: Radiologic exam of the right hip. Views: 1 view hip with pelvis when performed. COMPARISON: CT kidney stone [id number] 01/26/2023 4:47 PM FINDINGS: Bones/joints: Mild degenerative changes right hip joint consisting of mild joint space narrowing and subchondral sclerosis. No fracture or malalignment. Soft tissues: Unremarkable. XR/XR hip RT 2-3V wo/w pel* [id number] IMPRESSION: Mild degenerative changes right hip joint. No acute bony abnormalities.
--- NOTE | 2023-03-19 19:54 | PC.NURSE ---
Dr Castro informed that pyxis was empty of 500ml bags of NS. Verbal order given to order 1000ml bag of NS @100ml/hr, and to only give half bag. No further orders received at this time.
[2023-03-19 20:10] VITALS: RESP 18; O2SAT 96
[2023-03-19] MEDS: morphine 4 mg/mL SDV 1 mL IVP (20:10)
[2023-03-19 20:15] VITALS: PULSE 86; RESP 12; TEMP 36.4; O2SAT 95
[2023-03-19 20:24] LABS: Basophils # 0.1 10^3/uL (0.0-0.1); Basophils % 0.8 %; Eosinophils # 0.2 10^3/uL (0.0-0.8); Eosinophils % 2.7 %; Hematocrit 36.3 % (42.0-52.0); Hemoglobin 11.5 g/dL (11.7-16.6); Lymphocytes # 0.8 10^3/uL (0.8-4.8); Lymphocytes % 9.6 %; Mean Corpuscular HGB Conc 31.7 g/dL (30.0-36.0); Mean Corpuscular Hemoglobin 31.6 pg (28.0-34.0); Mean Corpuscular Volume 99.7 fl (80-94); Mean Platelet Volume 9.7 fL (7.4-10.4); Monocytes # 0.4 10^3/uL (0.2-0.9); Monocytes % 4.5 %; Nucleated Red Blood Cells % 0 %; Platelet Count 258 10^3/cmm (130-400); Red Blood Count 3.64 10^6/uL (4.1-5.3); Red Cell Distribution Width 14.8 % (12.1-15.1); White Blood Count 8.4 10^3/uL (4.0-10.0)
[2023-03-19] MEDS: sodium chloride 0.9% 1,000 ML 100 ML IV (20:31)
[2023-03-19 20:51] LABS: SARS Covid-2 Antigen negative (Negative)
[2023-03-19 20:55] LABS: Alanine Aminotransferase 35 U/L (0-41); Albumin Level 2.6 g/dL (3.5-5.2); Alkaline Phosphatase 151 U/L (40-130); Anion Gap 15.1 (5-19); Aspartate Amino Transferase 29 U/L (0-40); Blood Urea Nitrogen 25 mg/dL (8-23); Calcium 8.9 mg/dL (8.5-10.5); Carbon Dioxide 23 mmol/L (22-29); Chloride 99 mmol/L (98-107); Globulin 3.2 g/dL (1.3-4.6); Glucose 160 mg/dL (65-115); Osmolality Calculated 284 mOsm/kg (285-295); Potassium 4.1 mmol/L (3.5-5.1); Sodium 133 mmol/L (136-145); Thyroid Stimulating Hormone 1.76 uIU/mL (0.27-4.20); Total Bilirubin 0.6 mg/dL (0.15-1.2); Total Protein 5.8 g/dL (6.6-8.7)
--- NOTE | 2023-03-19 21:05 | PC.NURSE ---
Fingerstick glucose level 164. Dr Castro was informed at time of glucose check.
[2023-03-19 21:06] VITALS: BP 131/64; PULSE 85; RESP 20; O2SAT 92
[2023-03-19 21:46] LABS: Add Urine Microscopic? YES; Bilirubin Urine Neg (Negative); Blood Urine 3+ (Negative); Glucose Urine UA Norm (Normal); Ketones Urine Negative (Negative); Leukocyte Esterase Urine Negative (Negative); Nitrate Urine Negative (Negative); Protein Urine Neg (Negative); Urine Appearance Clear (CLEAR); Urine Color Yellow (Yellow); Urobilinogen Urine Neg (Negative); pH Urine 5 (5-7)
[2023-03-19 21:47] LABS: Add Urine Culture? No; Mucus Urine 2+ /hpf
[2023-03-19 21:58] VITALS: BP 131/84; PULSE 93; RESP 18; O2SAT 95
[2023-03-21 11:22] LABS: Glucose Point of Care 164 mg/dL (70-110)
== END 2023-03-19 23:55 | disposition home or self-care (01) ==
PROVIDERS: Emergency Provider Emergency Medicine; PCP Family Medicine
DX: D64.89 Other specified anemias (principal); E86.0 Dehydration; G89.29 Other chronic pain; R41.82 Altered mental status, unspecified; Z79.02 Long term (current) use of antithrombotics/antiplatelets; Z20.822 Contact with and (suspected) exposure to COVID-19; Z95.0 Presence of cardiac pacemaker; Z85.46 Personal history of malignant neoplasm of prostate; E78.5 Hyperlipidemia, unspecified; I10 Essential (primary) hypertension
CPT/HCPCS: 36415; 36416; 71045; 73502; 80053; 81001; 82962; 84443; 85025; 87040; 87426; 93005; 96374; 99285; J2270; J7030

== ENCOUNTER → 2023-03-31 12:56 | Outpatient (BNVA) | payer MEDICARE, SELFPAY | PROVIDERS: PCP Family Medicine; Visit Provider Orthopaedic Surgery | DX: M79.604 Pain in right leg; M43.16 Spondylolisthesis, lumbar region; M46.20 Osteomyelitis of vertebra, site unspecified | CPT/HCPCS: 99214 ==

== ENCOUNTER → 2023-04-02 09:32 | Outpatient (BNVA) | payer MEDICARE, SELFPAY | PROVIDERS: PCP Family Medicine; Visit Provider Student in an Organized Health Care Education/Training Program | DX: M43.16 Spondylolisthesis, lumbar region; L89.159 Pressure ulcer of sacral region, unspecified stage; M54.9 Dorsalgia, unspecified; G89.29 Other chronic pain | CPT/HCPCS: 99205 ==

== ENCOUNTER 2023-04-07 07:01 | Outpatient (CLI) | payer MEDICARE, SELFPAY | END 2023-04-07 07:02 | disposition home or self-care (01) | PROVIDERS: PCP Family Medicine; Visit Provider Family Medicine | DX: M46.25 Osteomyelitis of vertebra, thoracolumbar region (principal); L89.159 Pressure ulcer of sacral region, unspecified stage; Z79.899 Other long term (current) drug therapy | CPT/HCPCS: 87040 ==

== ENCOUNTER → 2023-04-09 09:35 | Outpatient (BNVA) | payer MEDICARE, SELFPAY | PROVIDERS: PCP Family Medicine; Visit Provider Anesthesiology Pain Medicine | DX: G89.29 Other chronic pain; M54.50 Low back pain, unspecified; M79.604 Pain in right leg; M79.605 Pain in left leg | CPT/HCPCS: 99215 ==

== ENCOUNTER 2023-04-16 09:00 | Outpatient (CLI) | payer MEDICARE, SELFPAY ==
--- NOTE | 2023-04-16 09:11 | CT_ITS ---
WS: [id number] CT THORACIC SPINE with contrast. HISTORY: FOLLOW UP/ASSESS FOR IMPROVEMENT TECHNIQUE: Contiguous 2.0 mm axial images are reviewed to thoracic spine. Images are reformatted in s agittal and coronal planes. All CT scans [facility] use at least one of these dose optimiz ation techniques: automated exposure control; mA and/or kV adjustment per patient size (includes targ eted exams where dose is matched to clinical indication); or iterative reconstruction. DLP: 973.41 mGy COMPARISON: None available. Omnipaque 350; 100 mL. Moderate increase in thoracic kyphosis. Bones are osteopenic. Reidentified is osseous destruction at the T12-L1 level. Widening of the disc space with loss of the normal cortical surface of the vertebral bodies. There has been a slight progression of lytic changes throughout the T12 and L1 vertebral bodies suggesting progression of osteomyelitis. No soft tissue e nhancing component identified displacing the thecal sac. The paravertebral soft tissue noted on the p rior examination is similar. New, small bilateral pleural effusions are present. Multilevel anterolateral degenerative endplate osteophytes throughout the remaining thoracic spine. N o additional areas of bone destruction and no high-grade stenosis. IMPRESSION: 1. Destructive osteolytic process involving the vertebral bodies at T12-L1. Mild progression of destr uctive disc space widening and bone destruction consistent with progressing osteomyelitis. No cord co mpression. 2. New small bilateral pleural effusions are probably reactive. 3. No additional destructive bone lesions.
--- NOTE | 2023-04-16 09:11 | CT_ITS ---
WS: [id number] CT LUMBAR SPINE, with contrast HISTORY: Follow-up osteomyelitis. TECHNIQUE: Contiguous 2.0 mm axial imaging are performed. Sagittal and coronal reformats are submitte d and reviewed. All CT scans at [facility] use at least one of these dose optimization techni ques: automated exposure control; mA and/or kV adjustment per patient size (includes targeted exams w here dose is matched to clinical indication); or iterative reconstruction. IV contrast: Omnipaque 350; 100 mL. DLP: 973.41 mGy.cm COMPARISON: 02/26/2023 Increase in lumbar lordosis and curvature. L4 anterolisthesis by 9 mm. Continued endplate destructive changes at T12-L1 with increasing soft tissue along the disc space. Mi nimal progression of the osteolytic bone disease. There is enhancing soft tissue through the disc wit h a more focal component extending into the RIGHT T12-L1 foramen. There is mild encroachment upon the ventral thecal sac. Mild paravertebral soft tissue prominence is similar to the prior examination. N ew small bilateral pleural effusions are identified. Bilateral foraminal stenosis. Similar to the deven or studies. L1-2: Asymmetric disc bulging to the LEFT. L2-3: Mild asymmetric disc bulging with ligamentum flavum hypertrophy. L3-4: Mild ligamentum flavum and facet arthritis. L4-5: Anterolisthesis of L4. Severe facet joint arthritis with ligamentum flavum hypertrophy. Severe central, bilateral subarticular recess and foraminal stenosis. L5-S1: Mild osteophytic ridging and disc bulging. Marked bilateral facet arthritis. Mild foraminal na rrowing. Nonobstructing RIGHT renal calcifications. Mild atherosclerosis aorta. IMPRESSION: 1. Minimal progression of destructive changes of osteomyelitis involving the T12 and L1 vertebral lowell dies. Destruction of the disc base with widening of the disc base. 2. Increasing enhancing soft tissue in the RIGHT foramen of T12-L11 is probably a component of disci tis due to the enhancement. 3. L4-5: Severe central, bilateral subarticular recess and foraminal stenosis due to combination of factors including L4 spondylolisthesis by 9 mm.
[2023-04-16] MEDS: iohexol 350 mg/mL 500 mL Btl (per mL) IV (10:36)
== END 2023-04-16 09:01 | disposition home or self-care (01) ==
LOC: RAD 09:03
PROVIDERS: PCP Family Medicine; Visit Provider Student in an Organized Health Care Education/Training Program
DX: M46.25 Osteomyelitis of vertebra, thoracolumbar region (principal); M48.061 Spinal stenosis, lumbar region without neurogenic claudication; J90 Pleural effusion, not elsewhere classified
CPT/HCPCS: 72129; 72132; 99205; Q9967

== ENCOUNTER → 2023-04-22 11:45 | Outpatient (BNVA) | payer MEDICARE, SELFPAY | PROVIDERS: PCP Family Medicine; Visit Provider Nurse Practitioner Family | DX: L89.150 Pressure ulcer of sacral region, unstageable (principal) | CPT/HCPCS: 87070; 87077; 87186 ==

== ENCOUNTER → 2023-04-30 13:19 | Outpatient (BNVA) | payer MEDICARE, SELFPAY | PROVIDERS: PCP Family Medicine; Visit Provider Orthopaedic Surgery | DX: M86.9 Osteomyelitis, unspecified (principal); Z79.01 Long term (current) use of anticoagulants | CPT/HCPCS: 99214 ==

== ENCOUNTER 2023-05-08 08:06 | Day surgery (SDC) | payer MEDICARE, SELFPAY ==
[2023-05-07 10:54] VITALS: BMI 17.0
[2023-05-08] VITALS (8 sets, daily range): BP systolic 75–104; BP diastolic 48–57; PULSE 76–81; RESP 15–17; TEMP 36.1–36.4; O2SAT 95–100
--- NOTE | 2023-05-08 | XR_ITS ---
WS: [id number] XR lumbar spine 2-3V* [id number] REASON FOR EXAM: biopsy t12-l1, or pic FINDINGS: Radiopaque cannula overlying the left aspect of the T12-L1 interspace at the level of the destructive process seen on the CT scan of 04/16/2023. IMPRESSION: Intraoperative localization at the thoracolumbar junction as above.
--- NOTE | 2023-05-08 08:15 | W.PM.OPSUD ---
Surgery/Procedure H&P Update DATE OF PROCEDURE: May 08, 2023 DATE H&P PERFORMED: 04/30/23 H&P UPDATE INFORMATION: I have reviewed H&P completed within last 30 days, I have examined patient prior to procedure and No changes to prior documentation PREOP DIAGNOSIS: Osteomyelitis PLANNED PROCEDURE: Operation Date: 05/08/23 09:25 Proposed Procedures p Thoracic T/12 Biopsy and Lumbar L/1 Biopsy(Not Applicable) - Jarrod Barrientos DO
--- NOTE | 2023-05-08 08:39 | ANES.PREANE2 ---
Pre-Anesthetic Assessment Height/Weight: Height 1.85 m Weight 58.513 kg Temp Pulse Resp BP Pulse Ox O2 Del Method 97.2 F L 80 16 91/56 95 Room Air 05/08/23 08:24 05/08/23 08:24 05/08/23 08:24 05/08/23 08:24 05/08/23 08:24 05/08/23 08:24 Preop Diagnosis: Osteomyelitis Operation Date: 05/08/23 09:25 Proposed Procedures p Thoracic T/12 Biopsy and Lumbar L/1 Biopsy(Not Applicable) - Jarrod Barrientos, DO Was Beta Keshav taken within 24 hours: N/A Was Clonidine taken within 24 hours: N/A Last intake: Intake Last Liquid Date 05/07/23 Last Liquid Time 17:00 Last Solid Date 05/07/23 Last Solid Time 17:00 Social No tobacco Exam alert, oriented x 3, clear to auscultation bilaterally and regular rate & rhythm Airway Submandibular: within normal limits Cervical ROM: within normal limits Mallampati: Class II Dentition: full History/ROS No significant history except as noted and No significant complaints CV/HEM Arrythmia (Pacemaker), Coronary Artery Disease (Coronary stent placed. Plavix held 1 week.) and Hypertension Metabolic Hyperlipidemia Neuropsych Chronic pain on Fentanyl patch Anesthetic Plan ASA status: 3 Anesthesia: General Risk of > 500 ml blood loss (7ml/kg in children): No Medications/Allergies Home Medications Medication Instructions Recorded Confirmed Last Taken Type pyridoxine (vitamin B6) 250 mg 250 mg PO DAILY 10/05/19 05/08/23 05/07/23 History tablet atorvastatin 40 mg tablet 40 mg PO DAILY #90 tabs 07/21/22 05/08/23 05/07/23 Rx clopidogrel 75 mg tablet (Plavix) 75 mg PO DAILY #90 tabs 07/21/22 05/07/23 04/29/23 Rx potassium chloride 8 mEq 8 meq PO DAILY #90 tabs 07/21/22 05/08/23 05/07/23 Rx tablet,extended release tamsulosin 0.4 mg capsule (Flomax) 0.4 mg PO DAILY #30 caps 11/11/22 05/08/23 05/07/23 Rx ondansetron HCl 4 mg tablet 4 mg PO Q6H PRN nausea and 01/26/23 05/07/23 Unknown Rx vomiting #10 tabs fentanyl 25 mcg/hr transdermal 1 patch transdermal Q72H #5 ea 02/13/23 05/08/23 05/07/23 Rx patch hydrocodone 10 mg-acetaminophen 1 tab PO Q6H PRN pain #30 tabs 02/23/23 05/08/23 05/08/23 Rx 325 mg tablet furosemide 20 mg tablet 20 mg PO DAILY PRN Edema #90 tabs 03/04/23 05/07/23 02/25/23 Rx lidocaine 5 % topical patch 1 patch topical [id number] #7 ea 03/04/23 05/08/23 05/07/23 Rx Lactobacillus rhamnosus GG 10 1 cap PO DAILY 04/08/23 05/08/23 05/07/23 History billion cell capsule (Culturelle) acetaminophen 325 mg capsule 325 mg PO QID PRN Pain 04/08/23 05/08/23 05/07/23 History (Tylenol) bisacodyl 10 mg rectal suppository 10 mg CA DAILY PRN Constipation 04/08/23 05/08/23 05/07/23 History (Dulcolax (bisacodyl)) magnesium hydroxide 400 mg/5 mL 5 ml PO DAILY PRN Constipation 04/08/23 05/07/23 Unknown History oral suspension (Milk of Magnesia) vit no.95-ferrous 1 tab PO DAILY 04/08/23 05/08/23 05/07/23 History fumarate 28 mg-folic acid 800 mcg tablet ( Multivitamins) vancomycin 1.5 gram intravenous 1 g IV Q18H 04/22/23 04/30/23 Unknown History solution lisinopril 40 mg tablet 40 mg PO DAILY 90 days #90 tabs 04/24/23 05/08/23 05/07/23 Rx Allergies Allergy/AdvReac Type Severity Reaction Status Date / Time allopurinol Allergy Unknown Unknown Verified 04/30/23 14:24 barium sulfate Allergy Unknown Unknown Verified 04/30/23 14:24 beclomethasone Allergy Unknown Unknown Verified 04/30/23 14:24 [From Vancenase] cephalexin [From Keflex] Allergy Unknown unknown Verified 04/30/23 14:24 gatifloxacin [From Tequin] Allergy Unknown unknown Verified 04/30/23 14:24 quinidine Allergy Unknown unknown Verified 04/30/23 14:24 [facility] Anesthesia Medical History Atypical chest pain BPH loc w urin obs/LUTS Chronic low back pain Edema, peripheral History of basal cell carcinoma History of pacemaker History of prostate cancer Hyperlipidemia Hypertension 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 Renal calculus, left Sacral decubitus ulcer, stage III Ureteral calculus, left Urolithiasis WPW (Ruhmq-Bywiceike-Gydjc syndrome) Surgical History H/O hernia repair H/O vasectomy History of PTCA History of rotator cuff surgery Hx of cholecystectomy Hx of tonsillectomy Family History Mother , IN HER 80'S CAD (coronary artery disease) Father , AT AGE 85 Cancer Lung disease Other Hypertension Social History Smoking and tobacco status: never smoked Alcohol intake: never Substance/Drug Use: never Marital status: / Current occupational status: retired Data Anesthesia Cardiac Studies: Echocardiogram 02/26/23
[2023-05-08] MEDS: sodium chloride 0.9% 1,000 ML 30 ML IV (08:50)
[2023-05-08] MEDS: vancomycin 1,000 MG in sodium chloride 0.9% 250 ML 250 MG IV (09:02)
[2023-05-08] MEDS: lidocaine-epi 1% 20 mL INJ INJECTION (09:25)
--- NOTE | 2023-05-08 09:36 | PM.OP ---
Operative Report Date of procedure: May 08, 2023 Pre-op diagnosis: Osteomyelitis T12-L1 Post-op diagnosis: same Procedure done: Culture of T12-L1 with biopsy Surgeon: Jarrod Barrientos DO Estimated blood loss (mL): 5 Procedure: Biopsy of T12-L1 Patient will demonstrate after undergoing anesthesia was placed in the prone position. Pressure well-padded. Patient's primary muscle fashion. Skin incision made over the left L1 pedicle. The awl was inserted into the pedicle of L1 aiming in the cephalad direction. The awl aimed towards the disc base. And then the biopsy tube was inserted. And cultures were taken. Through a syringe this was then placed on the back table and aerobic and anaerobic cultures were taken.
--- NOTE | 2023-05-08 13:46 | ANE.PACU2 ---
Inpatient post-anesthesia follow up: Airway intact: Yes Vital signs: Temperature 97.5 F Pulse Rate 81 Respiratory Rate 16 Blood Pressure 91/56 Pulse Oximetry 100 Oxygen Delivery Me thod Room Air Oxygen Flow Rate 3 Fraction of Inspir ed Oxygen Hydration adequate: Yes Nausea and vomiting: No Pain level: 1 Mental status: Baseline
== END 2023-05-08 10:45 | disposition home or self-care (01) ==
PROVIDERS: PCP Family Medicine; Visit Provider Orthopaedic Surgery
PROC: (CPT 20251; principal; 2023-05-08 09:25)
DX: M46.24 Osteomyelitis of vertebra, thoracic region (principal)
CPT/HCPCS: 20251; 72100; 76000; 87070; 87075; 87205; J1100; J2704; J3010; J3370; J7030; J7050

== ENCOUNTER 2023-05-14 23:03 | Inpatient (IN) | payer MEDICARE, SELFPAY ==
[2023-05-14] VITALS (8 sets, daily range): BP systolic 56–63; BP diastolic 35–42; PULSE 74–114; RESP 14–42; O2SAT 93–97; BMI 13.1
--- NOTE | 2023-05-14 23:15 | XRR_ITS ---
PROCEDURE INFORMATION: Exam: XR Chest Exam date and time: 05/14/2023 11:25 PM Age: 87 years old Clinical indication: Pain; Chest pressure; Additional info: Cp TECHNIQUE: Imaging protocol: Radiologic exam of the chest. Views: 1 view. COMPARISON: CR XR chest 1V portable [id number] 03/19/2023 7:43 PM FINDINGS: Tubes, catheters and devices: Left-sided cardiac pacemaker device redemonstrated. Lungs: No focal consolidation. Pleural spaces: Unremarkable. No pleural effusion. No pneumothorax. Heart/Mediastinum: Unremarkable. No cardiomegaly. Bones/joints: Unremarkable. XR/XR chest 1V portable [id number] IMPRESSION: No focal consolidation.
--- NOTE | 2023-05-14 23:15 | ECG_ITS ---
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 Measurements Intervals Murphy Rate: 100 P: 12 CT: 282 QRS: 267 QRSD: 166 T: 85 QT: 402 QTc: 519 Interpretive Statements ELECTRONIC VENTRICULAR PACEMAKER ABNORMAL RHYTHM ECG Compared to ECG 03/19/2023 20:07:04 No significant changes Electronically Signed On 05-15-2023 10:59:11 CDT by Marisela Rader M.D. [email or web address] Search Concepts dba Boouncemckitrick hospitalNibiruTech Limited/store/OM/[id number]
[2023-05-14 23:39] LABS: ABG PCO2 29.6 mmHg (35-45); ABG PH Result 7.41 (7.35-7.45); Arterial Blood Gas Hematocrit 40.7 % (42-52); Base Excess ABG -4.6 mmol/L (-2.0-2.0); Blood Gas Allen Test Pos; Blood Gas Sample Site Radial, left; Blood Gas Sample Type Arterial; HCO3 ABG 18.8 mmol/L (22-26); Oxygen Device NC; PO2 ABG 70.7 mmHg (80.0-100.0)
[2023-05-15] VITALS (26 sets, daily range): BP systolic 64–108; BP diastolic 44–81; PULSE 77–102; RESP 22–35; O2SAT 88–100
[2023-05-15] MEDS: sodium chloride 0.9% 1,000 ML 999 ML IV (00:11)
--- NOTE | 2023-05-15 00:18 | XRR_ITS ---
PROCEDURE INFORMATION: Exam: XR Chest Exam date and time: 05/15/2023 12:36 AM Age: 87 years old Clinical indication: Device placement; Other: Central line; Additional info: Post central line TECHNIQUE: Imaging protocol: Radiologic exam of the chest. Views: 1 view. COMPARISON: CR (CHEST, ) 05/14/2023 11:25 PM FINDINGS: Tubes, catheters and devices: Left-sided cardiac pacemaker device redemonstrated. Right IJ approach central venous catheter positioned with its tip near the upper cavoatrial junction. Lungs: Irregular opacities in the right lung base. Pleural spaces: No pneumothorax. Heart/Mediastinum: Unremarkable. No cardiomegaly. Bones/joints: Unremarkable. XR/XR chest 1V portable [id number] IMPRESSION: 1. Right IJ approach central venous catheter positioned with its tip near the upper cavoatrial junction. 2. No pneumothorax.
--- NOTE | 2023-05-15 00:20 | ED_ITS ---
HPI - Altered Mental Status General: Chief Complaint: Altered Mental Status Stated Complaint: AMS Time Seen by Provider: 05/14/23 23:05 Source: EMS Mode of arrival: EMS Limitations: altered mental status History of Present Illness: 87-year-old male [facility] he states that he has been p rogressing getting altered mental status throughout the day states that he was minimally responsive this evening he did was hypotensive his blood pressure here is in the 60s. 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 Patient here is able to tell me his name but not really able to answer any other questions at this time due to being altered. 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 Renal calculus, left Sacral decubitus ulcer, stage III Ureteral calculus, left Urolithiasis WPW (Kmivk-Trkrrqzef-Prhco syndrome) Surgical History H/O hernia repair H/O vasectomy History of PTCA History of rotator cuff surgery Hx of cholecystectomy Hx of tonsillectomy Family History Mother , IN HER 80'S CAD (coronary artery disease) Father , AT AGE 85 Cancer Lung disease Other Hypertension Social History Smoking and tobacco status: never smoked Alcohol intake: never Substance/Drug Use: never Marital status: / Current occupational status: retired Physical Exam Const: COMMON NORMALS: apparent distress and negative for patient oriented x3 GENERAL APPEARANCE: ill appearing and frail appearing HENMT: COMMON NORMALS: normocephalic and atraumatic HEAD & SCALP: normocephalic and atraumatic Eye: COMMON NORMALS: conjunctivae normal CONJUNCTIVA: Yes conjunctivae normal Neck/C-Spine: COMMON NORMALS: supple Chest: COMMONS NORMALS: normal inspection of the chest and normal palpation of entire chest wall Resp: COMMON NORMALS: normal respiratory effort and clear to auscultation bilaterally AUSCULTATION: clear to auscultation bilaterally Cardio: COMMON NORMALS: regular rate and regular rhythm RATE: regular rate RHYTHM: regular rhythm GI: COMMON NORMALS: Normal to inspection, nondistended, normoactive bowel sounds present, Soft to palpation and non-tender PALPATION: Yes Soft to palpation Extremity: NARRATIVE EXTREMITY EXAM: Edema noted to lower extremities Neuro: COMMON NORMALS: negative for patient oriented x3 Psych: COMMON NORMALS: negative for mental status grossly normal Skin: COMMON NORMALS: no rashes or lesions noted GENERAL SKIN EXAM: no rashes or lesions noted Procedures Central Line Placement Right IJ: Time Out Performed: Yes MD Prep: mask, gown and gloves Central Line Prep: Chlorhexidine scrub Local Anesthetic: lidocaine 1% Amount of anesthesia used (mL): 3 Ultrasound Used for Placement: Yes Central Line Lumen Inserted: triple Post Procedure: sutured in place, good blood return, all ports aspirated, flushed, capped and sterile dressing applied Post Procedure X-Ray: tip of catheter in good position Patient Tolerated Procedure: well Complications: none Course Vital Signs: Vital signs: Vital Signs Pulse Rate 97 05/15/23 02:05 Respiratory Rate 24 H 05/15/23 02:05 Blood Pressure 64/49 05/15/23 02:05 Pulse Oximetry 97 05/15/23 02:00 Oxygen Delivery Me thod Nasal Cannula 05/14/23 23:05 MDM - Altered Mental Status Medical Decision Making Patient presents here with altered mental status he is also severely hypotensive patient has septic shock with endorgan damage she has hyperkalemia along with acute kidney injury patient did give fluid boluses he is on multiple pressors given IV antibiotics spoke to daughter at length he is DNR/DNI did place a central line. Will admit to the ICU. Medical Records I reviewed the patient's medical records. Lab Data I reviewed the patient's lab results. 05/15/23 00:39 05/15/23 00:39 Radiology Impressions Chest X-Ray 05/15/23 00:18 IMPRESSION: 1. Right IJ approach central venous catheter positioned with its tip near the upper cavoatrial junction. 2. No pneumothorax. Head CT 05/15/23 00:24 IMPRESSION: No acute intracranial abnormality. Laboratory Results WBC 44.39 10^3/uL (3.29-11.43) H* 05/15/23 00:39 Corrected WBC Cancelled 05/14/23 23:18 RBC 4.18 10^6/uL (3.85-5.65) 05/15/23 00:39 Hgb 13.30 g/dL (11.27-16.99) 05/15/23 00:39 Hct 39.2 % (37-53) 05/15/23 00:39 MCV 93.8 fl (82-101) 05/15/23 00:39 MCH 31.8 pg (27-33) 05/15/23 00:39 MCHC 33.9 g/dL (30-55) 05/15/23 00:39 RDW 15.8 % (12.1-15.1) H 05/15/23 00:39 Plt Count 149 10^3/cmm (157-399) L 05/15/23 00:39 MPV 11.9 fL (7.4-10.4) H 05/15/23 00:39 Gran % Cancelled 05/14/23 23:18 Neut % (Auto) Cancelled 05/14/23 23:18 Lymph % (Auto) Not Reportable 05/15/23 00:39 Rapides % (Auto) Not Reportable 05/15/23 00:39 Eos % (Auto) Cancelled 05/14/23 23:18 Baso % (Auto) Cancelled 05/14/23 23:18 Neut # (Auto) Cancelled 05/14/23 23:18 Lymph # (Auto) Not Reportable 05/15/23 00:39 Rapides # (Auto) Not Reportable 05/15/23 00:39 Eos # (Auto) Cancelled 05/14/23 23:18 Baso # (Auto) Cancelled 05/14/23 23:18 Absolute Gran (auto) Cancelled 05/14/23 23:18 Nucleated RBC % (auto) Cancelled 05/14/23 23:18 Total Counted 100 (0-100) 05/15/23 00:39 Atypical Lymphs % Not Reportable 05/15/23 00:39 Segmented Neutrophils 84 % 05/15/23 00:39 Abs Segm Neuts (Man) 37.3 10/cmm (1.6-7.1) H 05/15/23 00:39 Band Neutrophils Not Reportable 05/15/23 00:39 Lymphocytes (Manual) 4 % 05/15/23 00:39 Monocytes (Manual) 1.0 % 05/15/23 00:39 Absolute Monocytes 0.4 10^3/cmm (0.1-0.6) 05/15/23 00:39 Eosinophils (Manual) 0 % 05/15/23 00:39 Absolute Eosinophils 0.0 10^3/cmm (0.0-0.7) 05/15/23 00:39 Basophils (Manual) 0.0 % 05/15/23 00:39 Absolute Basophils 0.0 10^3/cmm (0.0-0.2) 05/15/23 00:39 Myelocytes 10.0 % 05/15/23 00:39 Nucleated RBCs # Cancelled 05/14/23 23:18 Smudge Cells Trace 05/15/23 00:39 Platelet Estimate Decreased (Normal) 05/15/23 00:39 Specimen Type Arterial 05/14/23 23:30 Sample Site Radial, left 05/14/23 23:30 ABG pH 7.41 (7.35-7.45) 05/14/23 23:30 ABG pCO2 29.6 mmHg (35-45) L 05/14/23 23:30 ABG pO2 70.7 mmHg (80.0-100.0) L 05/14/23 23:30 ABG HCO3 18.8 mmol/L (22-26) L 05/14/23 23:30 ABG Base Excess -4.6 mmol/L (-2.0-2.0) L 05/14/23 23:30 Tavo Test Pos 05/14/23 23:30 Hematocrit 40.7 % (42-52) L 05/14/23 23:30 O2 Delivery Device Nc 05/14/23 23:30 O2 Liters/Min 5.0 % 05/14/23 23:30 FiO2 40.0 % 05/14/23 23:30 [employer] ID Shady 05/14/23 23:30 Sodium 129 mmol/L (136-145) L 05/15/23 00:39 Potassium 6.6 mmol/L (3.5-5.1) H* 05/15/23 00:39 Chloride 94 mmol/L (98-107) L 05/15/23 00:39 Carbon Dioxide 20 mmol/L (22-29) L 05/15/23 00:39 Anion Gap 21.6 (5-19) H 05/15/23 00:39 BUN 104 mg/dL (8-23) H* D 05/15/23 00:39 Creatinine 3.3 mg/dL (0.7-1.2) H 05/15/23 00:39 GFR Calculation Not Reportable 05/15/23 00:39 Glucose 362 mg/dL (65-115) H 05/15/23 00:39 Calculated Osmolality 315 mOsm/kg (285-295) H 05/15/23 00:39 Lactic Acid 6.2 mmol/L (0.5-2.2) H* 05/15/23 00:39 Calcium 9.3 mg/dL (8.5-10.5) 05/15/23 00:39 Total Bilirubin 0.3 mg/dL (0.15-1.2) 05/15/23 00:39 AST 55 U/L (0-40) H 05/15/23 00:39 ALT 43 U/L (0-41) H 05/15/23 00:39 Alkaline Phosphatase 206 U/L (40-130) H 05/15/23 00:39 Troponin T Baseline 215 ng/L (0-15) H* 05/15/23 00:39 NT-Pro-B Natriuret Pep 2920 pg/mL (0-450) H 05/15/23 00:39 Total Protein 4.3 g/dL (6.6-8.7) L 05/15/23 00:39 Albumin 2.0 g/dL (3.5-5.2) L 05/15/23 00:39 Globulin 2.3 g/dL (1.3-4.6) 05/15/23 00:39 All radiology interpretation(s) finalized by discharge Critical Care Time Critical Care Time: Critical Care Time: Yes Total Critical Care Time: 55 Attestation: The high probability of a clinically significant, sudden or life threatening deterioration of the patient's resp system(s) required my full and direct attention, intervention and personal management. The critical care time is as shown. This time is in addition to time spent performing any reported procedures but includes the following: [x] Data and vital sign review and interpretation [x] Patient assessment, examination and intervention [x] Documentation [x] Medication orders and management Discharge Plan Discharge Patient Disposition: Admitted As Inpatient Admit Provider: Cam Franco Clinical Impression: Septic shock, Altered mental status, Acute kidney injury, Acute hyperkalemia Condition: Stable Coding Level of Care Code ED Materials Handling Coordinator for Ashlie Webber
--- NOTE | 2023-05-15 00:24 | CTR_ITS ---
PROCEDURE INFORMATION: Exam: CT Head Without Contrast Exam date and time: 05/15/2023 12:49 AM Age: 87 years old Clinical indication: Altered mental status/memory loss; Additional info: AMS TECHNIQUE: Imaging protocol: Computed tomography of the head without contrast. Radiation optimization: All CT scans at this facility use at least one of these dose optimization techniques: automated exposure control; mA and/or kV adjustment per patient size (includes targeted exams where dose is matched to clinical indication); or iterative reconstruction. REPORTING DATA: Count of CT and Cardiac NM exams in prior 12 months: This patient has received 8 known CTs and 0 known cardiac nuclear medicine studies in the 12 months prior to the current study. COMPARISON: No relevant prior studies available. RADIATION DOSE METRICS: Total DLP (mGy-cm): 1220.28 FINDINGS: Brain: Normal. No hemorrhage. Unremarkable white matter. No mass effect. Cerebral ventricles: No ventriculomegaly. Paranasal sinuses: Visualized sinuses are unremarkable. No fluid levels. Mastoid air cells: Visualized mastoid air cells are well aerated. Bones/joints: Unremarkable. No acute fracture. Soft tissues: Unremarkable. CT/CT head wo con* [id number] IMPRESSION: No acute intracranial abnormality.
[2023-05-15 00:47] LABS: Hematocrit 39.2 % (37-53); Mean Corpuscular HGB Conc 33.9 g/dL (30-55); Mean Corpuscular Hemoglobin 31.8 pg (27-33); Mean Corpuscular Volume 93.8 fl (82-101); Mean Platelet Volume 11.9 fL (7.4-10.4); Platelet Count 149 10^3/cmm (157-399); Red Blood Count 4.18 10^6/uL (3.85-5.65); Red Cell Distribution Width 15.8 % (12.1-15.1)
[2023-05-15 01:08] LABS: Slide Review Slide Review Perform
[2023-05-15 01:09] LABS: Absolute Segmented Neutrophil 37.3 10/cmm (1.6-7.1); Eosinophils 0 %; Lymphocytes 4 %; Monocytes Absolute 0.4 10^3/cmm (0.1-0.6); Platelet Estimate Decreased (Normal); Segmented Neutrophils 84 %; Total Cells Counted 100 (0-100)
[2023-05-15 01:10] LABS: Smudge Cells Trace
[2023-05-15 01:11] LABS: White Blood Count 44.39 10^3/uL (3.29-11.43)
--- NOTE | 2023-05-15 01:12 | PC.NURSE ---
Dr Mueller informed of critical lab of white blood cells. No new orders received at this time.
[2023-05-15 01:17] LABS: Alanine Aminotransferase 43 U/L (0-41); Alkaline Phosphatase 206 U/L (40-130); Anion Gap 21.6 (5-19); Aspartate Amino Transferase 55 U/L (0-40); Calcium 9.3 mg/dL (8.5-10.5); Carbon Dioxide 20 mmol/L (22-29); Chloride 94 mmol/L (98-107); Globulin 2.3 g/dL (1.3-4.6); Glucose 362 mg/dL (65-115); Osmolality Calculated 315 mOsm/kg (285-295); Sodium 129 mmol/L (136-145); Total Bilirubin 0.3 mg/dL (0.15-1.2); Total Protein 4.3 g/dL (6.6-8.7)
[2023-05-15] MEDS: piperacillin-tazobactam 3.375 GM in sodium chloride 0.9% (plus) 50 ML IV (01:17)
[2023-05-15 01:18] LABS: Blood Urea Nitrogen 104 mg/dL (8-23); Potassium 6.6 mmol/L (3.5-5.1)
[2023-05-15] MEDS: vancomycin 1,000 MG in sodium chloride 0.9% 250 ML 250 MG IV (01:18)
[2023-05-15 01:19] LABS: Lactic Sepsis W/Reflex 6.2 mmol/L (0.5-2.2); Troponin(5th) Baseline 215 ng/L (0-15)
[2023-05-15 01:40] LABS: NT Pro B Type Natriuretic Pept 2920 pg/mL (0-450)
--- NOTE | 2023-05-15 01:52 | PM.HP ---
Providers/Chief Complaint Admitting Physician: Cam Franco MD Primary Care Provider: Wayne Ruelas MD Chief Complaint: AMS History of Present Illness Brendan Thacker is a 87 year old male with a past medical history of anorexia, severe protein calorie malnutrition, severe physical deconditioning, history of vertebral osteomyelitis T12-L1, recently completed daptomycin and ertapenem, recently had an biopsy of T12-L1, history of sacral ulcer, history of chronic pain, history of pacemaker, hyperlipidemia, hypertension, history of nephrolithiasis, history of WPW, who presents to [facility] from [facility] due to altered mental status, low blood pressures. Currently patient is alert to person, to place, not to time he can follow commands, he is currently on 2 pressors vasopressin, epinephrine, has a right central line in place remains hypotensive blood pressures maps less than 65 is tachypneic respiratory rate 30, 93% on 4 L, appears pale, diaphoretic, has mottling of bilateral extremity, up to the level of shins bilaterally, DP PT pulses not palpable bilaterally, cap refill greater than 4 seconds, bilateral lower extremities have a bluish hue, tachycardic heart rates in the 110s, labored breathing, in mild respiratory distress, with intercostal retractions, nasal flaring, patient's daughter is at bedside. Patient with daughter at bedside, tells me that currently patient is at the [facility], he was sent over due to increased confusion and weakness. She tells me that he has been hospitalized for vertebral osteomyelitis has been on antibiotics, he had improved with the antibiotics he [facility], but now he is significantly deteriorated. She tells me that before his back infection back in February he had voiced that he was ready to at that time, he was ready to go, he was in so much pain she tells me but with IV antibiotics she felt he did improve, and it gave him a chance. at bedside tells me let me go, let me . He tells me I do not want this, he again repeats let me go, let me . His daughter then confirms with him that this is what he wants. I spoke to patient, I asked him if he he wants us to continue all that we are doing for him, he tells me let me . I asked him if he wants us to ease his pain and ease his suffering and allow him to pass away comfortably, he tells me yes. I told him that currently he is in septic shock requiring multiple pressors, he is in kidney failure, he has an NSTEMI, he has evidence of multiorgan failure. We currently have him on medications to help with his infection, help with his shock do you want us to stop all of this he says yes, I told him that if we stop all this he will pass away he again confirmed p.o. to stop all medications. He again reiterates to me that let me . I confirmed with him that we will going to ease his pain and ease his suffering allow him to pass away comfortably. I was able to speak to patient's daughter again, I advised that I want to comply with Brendan wishes he is encephalopathic to some degree, as at times he is not following commands, but he is quite clear in his wishes. However she is his healthcare power of associate attorney, I discussed the case with his daughter, my concerns is for significant infection. Source of infection could be a UTI, there are could possibly be's and nephrolithiasis a stone that could be causing obstruction that we do not know as of yet as we have not done a CT of the abdomen pelvis. And if this were to be true he would likely need transfer to tertiary level center for stenting, surgical intervention. Other concerns are a spinal abscess has recently had a biopsy of his T12-L1 vertebrae the only way that I know for sure is to do CT scan of the spine. If there was a spinal abscess, he would need surgical decompression,, but I do not think he would tolerate surgery at this point. The other thought I had was he does have a sacral decubitus ulcer, he could have deep tissue infection from the sacral ulcer. Nonetheless he needs broad-spectrum IV antibiotics he needs further imaging, possible surgical intervention. However she tells me he would not want to have any type of surgery. We could give him a trial of IV antibiotics and pressors, however she tells me that he has made his voice clear, and she wants to comply with his wishes. After discussing the risk and benefits of all options, she voiced understanding, all questions answered, agreed to proceed with comfort care. Advised daughter that the goal of comfort care is to not hasten his but to ease his pain and ease his suffering and allow him to pass away comfortably, allow family members to be at his bedside. We will stop his pressors, stop all his medications, proceed to start him on comfort care and move him to general medical floors. Medications/Allergies Home Medications Medication Instructions Recorded Confirmed Last Taken Type pyridoxine (vitamin B6) 250 mg 250 mg PO DAILY 10/05/19 05/13/23 05/07/23 History tablet atorvastatin 40 mg tablet 40 mg PO DAILY #90 tabs 07/21/22 05/13/23 05/07/23 Rx clopidogrel 75 mg tablet (Plavix) 75 mg PO DAILY #90 tabs 07/21/22 05/13/23 04/29/23 Rx potassium chloride 8 mEq 8 meq PO DAILY #90 tabs 07/21/22 05/13/23 05/07/23 Rx tablet,extended release tamsulosin 0.4 mg capsule (Flomax) 0.4 mg PO DAILY #30 caps 11/11/22 05/13/23 05/07/23 Rx ondansetron HCl 4 mg tablet 4 mg PO Q6H PRN nausea and 01/26/23 05/13/23 Unknown Rx vomiting #10 tabs fentanyl 25 mcg/hr transdermal 1 patch transdermal Q72H #5 ea 02/13/23 05/13/23 05/07/23 Rx patch hydrocodone 10 mg-acetaminophen 1 tab PO Q6H PRN pain #30 tabs 02/23/23 05/13/23 05/08/23 Rx 325 mg tablet furosemide 20 mg tablet 20 mg PO DAILY PRN Edema #90 tabs 03/04/23 05/13/23 02/25/23 Rx lidocaine 5 % topical patch 1 patch topical [id number] #7 ea 03/04/23 05/13/23 05/07/23 Rx Lactobacillus rhamnosus GG 10 1 cap PO DAILY 04/08/23 05/13/23 05/07/23 History billion cell capsule (Culturelle) acetaminophen 325 mg capsule 325 mg PO QID PRN Pain 04/08/23 05/13/23 05/07/23 History (Tylenol) bisacodyl 10 mg rectal suppository 10 mg [place] DAILY PRN Constipation 04/08/23 05/13/23 05/07/23 History (Dulcolax (bisacodyl)) magnesium hydroxide 400 mg/5 mL 5 ml PO DAILY PRN Constipation 04/08/23 05/13/23 Unknown History oral suspension (Milk of Magnesia) vit no.95-ferrous 1 tab PO DAILY 04/08/23 05/13/23 05/07/23 History fumarate 28 mg-folic acid 800 mcg tablet ( Multivitamins) lisinopril 40 mg tablet 40 mg PO DAILY 90 days #90 tabs 04/24/23 05/13/23 05/07/23 Rx Allergies Allergy/AdvReac Type Severity Reaction Status Date / Time allopurinol Allergy Unknown Unknown Verified 05/13/23 16:43 barium sulfate Allergy Unknown Unknown Verified 05/13/23 16:43 beclomethasone Allergy Unknown Unknown Verified 05/13/23 16:43 [From Vancenase] cephalexin [From Keflex] Allergy Unknown unknown Verified 05/13/23 16:43 gatifloxacin [From Tequin] Allergy Unknown unknown Verified 05/13/23 16:43 quinidine Allergy Unknown unknown Verified 05/13/23 16:43 PFSH Acute PFSH: Medical History Atypical chest pain BPH loc w urin obs/LUTS Chronic low back pain Edema, peripheral History of basal cell carcinoma History of pacemaker History of prostate cancer Hyperlipidemia Hypertension 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 Renal calculus, left Sacral decubitus ulcer, stage III Ureteral calculus, left Urolithiasis WPW (Kbkao-Ithgkphit-Nhyls syndrome) Surgical History H/O hernia repair H/O vasectomy History of PTCA History of rotator cuff surgery Hx of cholecystectomy Hx of tonsillectomy Family History Mother , IN HER 80'S CAD (coronary artery disease) Father , AT AGE 85 Cancer Lung disease Other Hypertension Social History Smoking and tobacco status: never smoked Alcohol intake: never Substance/Drug Use: never Marital status: / Current occupational status: retired Vitals/I&O/Wt Last Vital Signs Pulse 91 05/15/23 01:20 Resp 32 H 05/15/23 01:20 BP 91/61 05/15/23 01:20 Pulse Ox 93 05/15/23 01:20 O2 Del Method Nasal Cannula 05/14/23 23:05 05/14/23 05/14/23 05/15/23 14:59 22:59 06:59 Intake Total 1018.098 / 1018.098 Balance 1018.098 / 1018.098 Weight last 48 hrs Weight 45.359 kg Physical Exam Const: EXAM LIMITATIONS: altered mental status GENERAL APPEARANCE: ill appearing and frail appearing NUTRITIONAL APPEARANCE: cachectic ORIENTATION/CONSCIOUSNESS: Yes awake, Yes oriented to person, Yes oriented to place, Yes confused, Yes patient obtunded and Yes lethargic; not oriented to time Eye: COMMON NORMALS: Equal, round and reactive pupils present Neck/C-Spine: COMMON NORMALS: no lymphadenopathy Chest: COMMONS NORMALS: normal inspection of the chest Resp: EFFORT & INSPECTION: Yes tachypneic, Yes respiratory distress, Yes labored and Yes retractions Cardio: RATE: tachycardic RHYTHM: regular rhythm HEART SOUNDS: S1 normal heart sound present and S2 normal heart sound present GI: COMMON NORMALS: Soft to palpation and non-tender INSPECTION: Yes normal to inspection AUSCULTATION: Yes normoactive bowel sounds : OTHER: Bilateral CVA tenderness Neuro: OTHER: Does not follow commands at times, difficult to do neurologic testing Sepsis: Is patient septic: Yes Focused sepsis exam performed: Yes Date exam was performed: 05/15/23 Data 05/15/23 00:39 05/15/23 00:39 Micro: Microbiology 05/15/23 00:39 Blood Culture - Preliminary Blood SPECIMEN COLLECTED 05/15/23 00:39 Blood Culture - Preliminary Blood SPECIMEN COLLECTED A&P Assessment and plan (1) Septic shock: (2) Altered mental status: (3) Acute kidney injury: (4) Acute hyperkalemia: (5) Pressure injury of coccygeal region, stage 2: (6) Sacral decubitus ulcer: (7) Hyperlipidemia: Qualifiers: Hyperlipidemia type: mixed hyperlipidemia Qualified Code(s): E78.2 - Mixed hyperlipidemia (8) Hypertension: Qualifiers: Hypertension type: essential hypertension Qualified Code(s): I10 - Essential (primary) hypertension (9) Pacemaker: (10) Edema, peripheral: (11) Atherosclerosis of coronary artery of [place] heart without angina pectoris: Qualifiers: Coronary Disease-Associated Artery/Lesion type: [place] artery Qualified Code(s): I25.10 - Atherosclerotic heart disease of [place] coronary artery without angina pectoris (12) Acute renal failure: (13) NSTEMI (non-ST elevated myocardial infarction): (14) Transaminitis: (15) Lactic acidosis: (16) Need for comfort care: Reno Thacker is a 87 year old male with a past medical history of anorexia, severe protein calorie malnutrition, severe physical deconditioning, history of vertebral osteomyelitis T12-L1, recently completed daptomycin and ertapenem, recently had an biopsy of T12-L1, history of sacral ulcer, history of chronic pain, history of pacemaker, hyperlipidemia, hypertension, history of nephrolithiasis, history of WPW -Who presents to [facility] for septic shock source of infection could be UTI and or vertebral osteomyelitis and or spinal abscess and/or sacral decubitus ulcer -With acute renal failure, creatinine 3.3, life-threatening hyperkalemia, 6.6, lactic acidosis 6.2, transaminitis, NSTEMI, encephalopathy, with acute hypoxic respiratory failure 40% FiO2 -Proceeding with comfort care -Comfort care order set Attestations Medical Necessity Statement*: Patient requires hospitalization, inpatient, greater than 2 midnights, for septic shock, acute renal failure, lactic acidosis, hypokalemia, NSTEMI, UTI, vertebral osteomyelitis, sacral decubitus ulcer, proceeding with comfort care Coding Level of Care Code Critical Care >/= 30 minutes Critical care time (in minutes): 45 The high probability of a clinically significant, sudden or life threatening deterioration, as referenced in this documentation, required my full and direct attention, intervention and personal management. The critical care time shown is in addition to time spent performing any reported separately billable procedures and includes the following: [x] Data and vital sign review and interpretation [x] Patient assessment, examination and intervention [x] Medication orders and management [x] Patient/Family updates as able [x] Care Coordination and Documentation. Diagnoses Septic shock A41.9; R65.21 Altered mental status R41.82 Acute kidney injury N17.9 Acute hyperkalemia E87.5 Pressure injury of coccygeal region, stage 2 L89.152 Sacral decubitus ulcer L89.159 Hyperlipidemia E78.2 Hyperlipidemia type: mixed hyperlipidemia Hypertension I10 Hypertension type: essential hypertension Pacemaker Z95.0 Edema, peripheral R60.9 Atherosclerosis of coronary artery of [place] heart without angina pectoris I25.10 Coronary Disease-Associated Artery/Lesion type: [place] artery Acute renal failure N17.9 NSTEMI (non-ST elevated myocardial infarction) I21.4 Transaminitis R74.01 Lactic acidosis E87.20 Need for comfort care
[2023-05-15] MEDS: morphine 4 mg/mL SDV 1 mL IVP ×3 (01:55→06:17)
[2023-05-15 02:31] LABS: Reflex Lactate Order REFLEX LACTIC ORDERD
[2023-05-15] MEDS: morphine 10 mg/0.5 mL oral liq UD SUBLINGUAL ×2 (02:53→08:07)
--- NOTE | 2023-05-15 03:20 | PC.NURSE ---
Patient comfort care upon arriving to the floor. Unable to complete parts of admission assessment. Patient speech is not clear and patient is confused. Daughter at bedside is tearful at this time.
[2023-05-15] MEDS: blistex lip oint 7 gm Tube 1 APPLIC TOPICAL (04:46)
--- NOTE | 2023-05-15 10:12 | PC.SOCIAL ---
Pg 2 IMM Explained to pt's daughter Pg 2 IMM. No questions voiced. Provided pt a copy. Initialed, dated, & timed a copy & placed in chart.
--- NOTE | 2023-05-15 11:23 | P.DES_ITS ---
Discharge Providers DDS Date of Admission: 05/15/23 01:30 Date Summary Completed: 05/15/23 Attending Provider at Admission: Cam Franco MD Time of : 11:03 Attending Provider at Discharge: Tello Taylor DO Consults: None Primary Care Provider: MD ERUM Harris Diagnoses Probable Cause of Sepsis Hospital Diagnoses (1) Septic shock: (2) Altered mental status: (3) Acute kidney injury: (4) Acute hyperkalemia: (5) Pressure injury of coccygeal region, stage 2: (6) Sacral decubitus ulcer: (7) Hyperlipidemia: Qualifiers: Hyperlipidemia type: mixed hyperlipidemia Qualified Code(s): E78.2 - Mixed hyperlipidemia (8) Hypertension: Qualifiers: Hypertension type: essential hypertension Qualified Code(s): I10 - Essential (primary) hypertension (9) Pacemaker: (10) Edema, peripheral: (11) 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 He had recently discontinued the regimen of daptomycin ertapenem. Per to the long-term [facility] status. He was transferred to the ER due to low blood pressures and altered mental status. Emergency room he was found to have sepsis. Admitting hospitalist had a talk with the patient and daughter. The patient was very clear that he did not want to undergo aggressive measures. The daughter was in agreement. He was transferred to the floor for comfort measures. Summary Date and Time of Date of : 05/15/23 Time of : 11:03 Summary Summary: Patient was admitted to the floor for comfort measures. He received a few doses of Roxanol and IV morphine. He was comfortable. His oxygen was turned to 2 L. He 05/15/2023 at 1103. Additional Data Family: at bedside Was code activated?: No Autopsy requested?: No Advance directives?: Yes Hospice patient?: No Discharge Plan Discharge Patient Disposition: Condition: Stable Prescriptions: No Action pyridoxine (vitamin B6) 250 mg tablet 250 mg PO DAILY bisacodyl [Dulcolax (bisacodyl)] 10 mg suppository 10 mg MD DAILY PRN (Reason: Constipation) magnesium hydroxide [Milk of Magnesia] 400 mg/5 mL suspension 5 ml PO DAILY PRN (Reason: Constipation) Culturelle 10 billion cell capsule 1 cap PO DAILY acetaminophen [Tylenol] 325 mg capsule 325 mg PO QID PRN (Reason: Pain) PNV cmb#95-ferrous fumarate-FA [ Multivitamins] 28 mg iron- 800 mcg tablet 1 tab PO DAILY Flomax 0.4 mg capsule 0.4 mg PO DAILY Qty: 30 12RF atorvastatin 40 mg tablet 40 mg PO DAILY Qty: 90 3RF Plavix 75 mg tablet 75 mg PO DAILY Qty: 90 3RF Hold Instructions: Resume on 12/25/22. potassium chloride 8 mEq tablet extended release 8 meq PO DAILY Qty: 90 3RF ondansetron HCl 4 mg tablet 4 mg PO Q6H PRN (Reason: nausea and vomiting) Qty: 10 0RF fentanyl 25 mcg/hr patch 72 hour 1 patch transdermal Q72H Qty: 5 0RF Cipro 500 mg Tablet 500 mg PO BID lisinopril 10 mg Tablet 10 mg PO DAILY hydrocodone-acetaminophen 10-325 mg tablet 1 tab PO Q6H PRN (Reason: pain) Qty: 30 0RF lidocaine 5 % Adhesive Patch,Medicated 1 patch topical [id number] Qty: 7 0RF furosemide 20 mg tablet 20 mg PO DAILY PRN (Reason: Edema) Qty: 90 3RF Referrals: Wayne Ruelas MD [Primary Care Provider] - DS Attestations Time Spent in /Discharge Care*: greater than 30 min Quality - AMI: AMI present?: No Quality - Stroke: CVA present?: No Quality - VTE: VTE present?: No Coding Level of Care Code Acute Code for [facility] Fwd Diagnoses Septic shock A41.9; R65.21 Altered mental status R41.82 Acute kidney injury N17.9 Acute hyperkalemia E87.5 Pressure injury of coccygeal region, stage 2 L89.152 Sacral decubitus ulcer L89.159 Hyperlipidemia E78.2 Hyperlipidemia type: mixed hyperlipidemia Hypertension I10 Hypertension type: essential hypertension Pacemaker Z95.0 Edema, peripheral R60.9 Atherosclerosis of coronary artery of [place] heart without angina pectoris I25.10 Coronary Disease-Associated Artery/Lesion type: [place] artery Acute renal failure N17.9 NSTEMI (non-ST elevated myocardial infarction) I21.4 Transaminitis R74.01 Lactic acidosis E87.20 Need for comfort care
--- NOTE | 2023-05-15 11:34 | PC.NURSE ---
called to room by patient's daughter, patient found with no pulse and no respirations. Second nurse verification by Claudia Barrett RN. TOD [id number]. Dr. Taylor notified.
== END 2023-05-15 11:03 | disposition expired | DRG 871 ==
LOC: ER 05-15 00:24 → MEDSURG 05-15 01:44
PROVIDERS: Admitting Provider Family Medicine; Emergency Provider Emergency Medicine; PCP Family Medicine; Visit Provider Internal Medicine
DX: A41.9 Sepsis, unspecified organism (principal); I21.4 Non-ST elevation (NSTEMI) myocardial infarction; R65.21 Severe sepsis with septic shock; J96.01 Acute respiratory failure with hypoxia; N17.9 Acute kidney failure, unspecified; M46.25 Osteomyelitis of vertebra, thoracolumbar region; G93.40 Encephalopathy, unspecified; E87.5 Hyperkalemia; L89.152 Pressure ulcer of sacral region, stage 2; E78.2 Mixed hyperlipidemia; I10 Essential (primary) hypertension; Z95.0 Presence of cardiac pacemaker; Z51.5 Encounter for palliative care; R53.81 Other malaise; Z79.02 Long term (current) use of antithrombotics/antiplatelets; R74.01 Elevation of levels of liver transaminase levels
CPT/HCPCS: 36556; 36600; 70450; 71045; 80053; 82803; 83605; 83880; 84484; 85007; 85025; 87040; 93005; 96365; 96367; 99285; J2270; J2543; J3370; J3490; J7030; J7050; J7060